=== PATIENT | male | born 1970 | race Caucasian/White ===

== ENCOUNTER 2021-02-27 10:17 | Inpatient (IN) ==
[2021-02-27] MEDS ORDERED: DEXAMETHASONE SOD INJ 4 MG/ML VIAL IV STA (11:26)
--- NOTE | 2021-02-27 11:47 | XRay Report ---
XR chest 1V portable CLINICAL HISTORY: Atypical chest pain TECHNIQUE: Single frontal radiograph of the chest was obtained. Comparison: Lungs are underinflated. There are scattered bilateral airspace opacities. FINDINGS: No lines and tubes are seen. The cardiomediastinal silhouette is normal. The lungs are clear. No evid ence of pleural effusion or pneumothorax. IMPRESSION: Scattered bilateral airspace opacities which may represent atelectasis, pneumonia, and/or aspiration. ACT 112: Negative or not required by law. Electronically signed by: Caleb Israel M.D. 02/27/2021 11:45 AM
[2021-02-27 12:04] LABS: BUN Creatinine Ratio 13.8 (10-20); Blood Urea Nitrogen 14 mg/dl (7-18); Calcium 9.2 mg/dl (8.5-10.1); Carbon Dioxide 23 mmol/L (21-32); Chloride 101 mmol/L (98-107); Est GFR (African American) 97.7 ml/min; Est GFR (Non-African American) 84.3 ml/min; Glucose 320 mg/dl (70-99); Lipase 302 U/L (73-393); Potassium 4.6 mmol/L (3.5-5.1); Sodium 133 mmol/L (136-145); Troponin I < 0.015 ng/ml (0-0.045)
--- NOTE | 2021-02-27 12:04 | Emergency Department Note ---
History of Present Illness General Chief Complaint: Shortness of Breath/Dyspnea Time Seen by Provider: 02/27/21 11:05 History of Present Illness Provider Complaint: shortness of breath Onset (ago): week(s) (1) Severity: severe Consistency/Duration: + progressively worsening Relieved By: + nothing Exacerbated By: + nothing Context: + recent illness (diagnosed w/ COVID 02/21/21) Associated symptoms: + fever, + cough and + sputum production; no chest pain, no wheezing, no lower extremity pain, no paresthesias, no palpitations, no h emoptysis, no diaphoresis, no nausea/vomiting, no syncope, no abdominal pain, no rash, no sense of impending doom, no chest congestion, no dizziness or no lightheadedness Past Med/Surg History Medical History (Updated 02/27/21 @ 15:13 by Dick Haney) Asthma Diabetes HTN (hypertension) No pertinent family history Surgical History (Updated 02/27/21 @ 12:02 by Dick Haney) No pertinent past surgical history Social History Smoking Status: Never smoker Feels Safe at Home: Declines to Answer Review of Systems A total of 10 systems reviewed and were otherwise negative Physical Exam Vital Signs: Vital Signs - 24 hr 02/27/21 10:08 02/27/21 10:34 02/27/21 10:40 Temperature 36.9 C Temperature Source Oral Pulse Rate 99 H 103 H 107 H Pulse Rate from Sp O2 Sensor 102 H 106 H Pulse Rhythm Regular Respiratory Rate 24 16 24 Respiratory Effort / Characteristics Non-Labored Respiratory Depth Normal Respiratory Patter n Regular Blood Pressure 142/96 H Blood Pressure Kyra n 111 Pulse Oximetry 95 95 95 Oxygen Delivery Me thod Nasal Cannula Sepsis Recent Feve r Within 48 Hours No Sepsis New/Unexpla ined Change in Men loni Status No Sepsis Action Take n by Nursing No Action Required 02/27/21 10:50 02/27/21 11:00 02/27/21 11:10 Temperature Temperature Source Pulse Rate 98 H 100 H 102 H Pulse Rate from Sp O2 Sensor 98 H 101 H 101 H Pulse Rhythm Respiratory Rate 21 31 H 31 H Respiratory Effort / Characteristics Respiratory Depth Respiratory Patter n Blood Pressure Blood Pressure Kyra n Pulse Oximetry 93 94 94 Oxygen Delivery Me thod Sepsis Recent Feve r Within 48 Hours Sepsis New/Unexpla ined Change in Men loni Status Sepsis Action Take n by Nursing 02/27/21 11:20 11/15/21 11:26 02/27/21 11:30 Temperature Temperature Source Pulse Rate 101 H 101 H Pulse Rate from Sp O2 Sensor 99 H 104 H Pulse Rhythm Respiratory Rate 29 H 28 H Respiratory Effort / Characteristics Respiratory Depth Respiratory Patter n Blood Pressure Blood Pressure Kyra n Pulse Oximetry 94 95 94 Oxygen Delivery Me thod Nasal Cannula Sepsis Recent Feve r Within 48 Hours Sepsis New/Unexpla ined Change in Men loni Status Sepsis Action Take n by Nursing 02/27/21 11:40 02/27/21 11:50 02/27/21 12:00 Temperature Temperature Source Pulse Rate 105 H 97 H 104 H Pulse Rate from Sp O2 Sensor 104 H 99 H 103 H Pulse Rhythm Respiratory Rate 22 24 33 H Respiratory Effort / Characteristics Respiratory Depth Respiratory Patter n Blood Pressure Blood Pressure Kyra n Pulse Oximetry 93 94 95 Oxygen Delivery Me thod Sepsis Recent Feve r Within 48 Hours Sepsis New/Unexpla ined Change in Men loni Status Sepsis Action Take n by Nursing 02/27/21 12:10 02/27/21 12:20 02/27/21 12:30 Temperature Temperature Source Pulse Rate 105 H 106 H 108 H Pulse Rate from Sp O2 Sensor 106 H 104 H 107 H Pulse Rhythm Respiratory Rate 30 H 24 25 H Respiratory Effort / Characteristics Respiratory Depth Respiratory Patter n Blood Pressure Blood Pressure Kyra n Pulse Oximetry 96 96 94 Oxygen Delivery Me thod Sepsis Recent Feve r Within 48 Hours Sepsis New/Unexpla ined Change in Men loni Status Sepsis Action Take n by Nursing 02/27/21 12:48 02/27/21 12:50 02/27/21 13:00 Temperature Temperature Source Pulse Rate 102 H 108 H 102 H Pulse Rate from Sp O2 Sensor 106 H 102 H Pulse Rhythm Respiratory Rate 29 H 27 H 33 H Respiratory Effort / Characteristics Respiratory Depth Respiratory Patter n Blood Pressure Blood Pressure Kyra n Pulse Oximetry 97 97 Oxygen Delivery Me thod Sepsis Recent Feve r Within 48 Hours Sepsis New/Unexpla ined Change in Men loni Status Sepsis Action Take n by Nursing 02/27/21 13:10 02/27/21 13:20 02/27/21 13:30 Temperature Temperature Source Pulse Rate 117 H 109 H 120 H Pulse Rate from Sp O2 Sensor 115 H 109 H Pulse Rhythm Respiratory Rate 23 33 H 28 H Respiratory Effort / Characteristics Respiratory Depth Respiratory Patter n Blood Pressure Blood Pressure Kyra n Pulse Oximetry 97 96 Oxygen Delivery Me thod Sepsis Recent Feve r Within 48 Hours Sepsis New/Unexpla ined Change in Men loni Status Sepsis Action Take n by Nursing 02/27/21 13:40 02/27/21 13:50 Temperature Temperature Source Pulse Rate 98 H 100 H Pulse Rate from Sp O2 Sensor 96 H 100 H Pulse Rhythm Respiratory Rate 34 H 32 H Respiratory Effort / Characteristics Respiratory Depth Respiratory Patter n Blood Pressure Blood Pressure Kyra n Pulse Oximetry 93 94 Oxygen Delivery Me thod Sepsis Recent Feve r Within 48 Hours Sepsis New/Unexpla ined Change in Men loni Status Sepsis Action Take n by Nursing Physical Exam: Physical Exam GENERAL: He is oriented to person, place, and time. He appears well-developed and well-nourished. He does not appear distressed. HENT: Exam performed. - Head: Normocephalic and atraumatic. - Right Ear: External ear normal. No mastoid tenderness. - Left Ear: External ear normal. No mastoid tenderness. - Mouth/Throat: The oropharynx is clear and moist. No trismus in the jaw. No dental abscesses or uvula swelling. No oropharyngeal exudate or tonsillar abscesses. EYES: Conjunctivae and EOM are normal. Pupils are equal, round, and reactive to light. Right eye exhibits no discharge. Left eye exhibits no discharge. No scleral icterus. NECK: Normal range of motion. Neck supple. No JVD present. No spinous process tenderness present. No carotid bruit present. No rigidity. No tracheal deviation and normal range of motion present. No Brudzinski's sign and no Kernig's sign noted. CV: Normal rate, regular rhythm, normal heart sounds and intact distal pulses. There is no peripheral edema. Palpable radial pulses bue. PULM/CHEST: Rhonchi bilaterally. ABD: The abdomen is soft. Bowel sounds are normal. He has no distension. No mass is present. There is no tenderness. There is no rebound, no guarding, no Gibson's sign and no tenderness at McBurney's point. Rovsig negative. MUSC/SKEL: Normal range of motion. There is no peripheral edema, tenderness or deformity. LYMPH: No cervical adenopathy. NEURO: He is alert and oriented to person, place, and time. He has normal strength. No cranial nerve deficit or sensory deficit. Coordination and gait normal. GCS eye subscore is 4. GCS verbal subscore is 5. GCS motor subscore is 6. Cerebellar tests wnl. SKIN: Skin is warm and dry. He is not diaphoretic. PSYCH: He has a normal mood and affect. Behavior is normal. Judgment and thought content normal. Course Course 1105: The patient was evaluated in room B9. A complete history and physical exam was performed Cardiac monitoring: An order was placed for continuous cardiac monitoring. The monitor shows a rate of 110 with sinus tachycardiarhythm patient was found to be hypoxic on room air 87%. Patient responded well to 4 L nasal cannula. Patient treated with Decadron 6 mg IV push. 1400: Vital signs stable on supplemental oxygen via nasal cannula. Imaging shows no PE but does show signs of Covid pneumonia. Labs are within normal limits with the exception of mild hyperglycemia. [facility] will evaluate the patient for admission. Administered Medications Discontinued Medications Dexamethasone (Dexamethasone Sod Inj 4 Mg/Ml Vial) 6 mg IV NOW STA Stop: 02/27/21 11:27 Last Admin: 02/27/21 11:42 Dose: 6 mg Documented by: [id number] Insulin Human Regular (Novolin-R Insulin Per Unit Charge) 10 units IV NOW STA Stop: 02/27/21 14:20 Last Admin: 02/27/21 14:35 Dose: 10 units Documented by: [id number] Cosigned by: [id number] Ioversol (Optiray 320 125ml) 120 ml IV ONCE ONE Stop: 02/27/21 12:46 Last Admin: 02/27/21 12:45 Dose: 120 ml Documented by: [id number] Medical Decision Making Laboratory Data Result diagrams: 02/27/21 10:37 02/27/21 10:37 Lab Results 02/27/21 02/27/21 02/27/21 Range/Units 10:37 10:37 10:37 WBC 2.47 L (4.8-10.8) K/uL RBC 5.93 (4.7-6.1) M/uL Hgb 17.4 (14.0-18.0) g/dL Hct 51.4 (42-52) % MCV 86.7 (80-100) fL MCH 29.3 (25-34) pg MCHC 33.9 (32-36) g/dL RDW Std Deviation 43.4 (36.4-46.3) fL RDW Coeff of Anish 13.6 (11.5-14.5) % Plt Count 70 L (130-400) K/uL MPV 12.2 H (7.4-10.4) fL Immature Gran % (Auto) 0.0 % Neut % (Auto) 61.1 % Lymph % (Auto) 24.3 % [place] % (Auto) 14.2 % Eos % (Auto) 0.0 % Baso % (Auto) 0.4 % Neut # (Auto) 1.51 (1.4-6.5) K/uL Lymph # (Auto) 0.60 L (1.2-3.4) K/uL [place] # (Auto) 0.35 (0.11-0.59) K/uL Eos # (Auto) 0.00 (0-0.5) K/uL Baso # (Auto) 0.01 (0-0.2) K/uL Immature Gran # (Auto) 0.00 (0.00-0.02) K/uL Platelet Estimate Decreased L (Normal) PT 11.6 (9.0-12.0) Seconds INR 1.2 H (0.9-1.1) APTT 28.4 (21.0-31.0) Seconds PTT Ratio 1.1 VBG pH (7.36-7.41) VBG pCO2 (38-50) mmHg VBG pO2 mmHg VBG HCO3 mmol/L VBG O2 Saturation % VBG Base Excess mEq/L Barometric Pressure mm/Hg Sodium 133 L (136-145) mmol/L Potassium 4.6 (3.5-5.1) mmol/L Chloride 101 (98-107) mmol/L Carbon Dioxide 23 (21-32) mmol/L Anion Gap 10.0 (3-11) BUN 14 (7-18) mg/dl Creatinine 1.03 (0.6-1.4) mg/dl Est Cr Clr Drug Dosing Not Reportable Est GFR ( Amer) 97.7 ml/min Est GFR (Non-Af Amer) 84.3 ml/min BUN/Creatinine Ratio 13.8 (10-20) Glucose 320 H* (70-99) mg/dl Calcium 9.2 (8.5-10.1) mg/dl Troponin I < 0.015 (0-0.045) ng/ml Lipase 302 (73-393) U/L Beta-Hydroxybutyric Acd 7.55 H (0.2-2.81) mg/dl COVID-19 Eval Order SARS-CoV-2 (PCR) (Negative) 02/27/21 02/27/21 02/27/21 Range/Units 10:37 10:37 12:15 WBC (4.8-10.8) K/uL RBC (4.7-6.1) M/uL Hgb (14.0-18.0) g/dL Hct (42-52) % MCV (80-100) fL MCH (25-34) pg MCHC (32-36) g/dL RDW Std Deviation (36.4-46.3) fL RDW Coeff of Anish (11.5-14.5) % Plt Count (130-400) K/uL MPV (7.4-10.4) fL Immature Gran % (Auto) % Neut % (Auto) % Lymph % (Auto) % [place] % (Auto) % Eos % (Auto) % Baso % (Auto) % Neut # (Auto) (1.4-6.5) K/uL Lymph # (Auto) (1.2-3.4) K/uL [place] # (Auto) (0.11-0.59) K/uL Eos # (Auto) (0-0.5) K/uL Baso # (Auto) (0-0.2) K/uL Immature Gran # (Auto) (0.00-0.02) K/uL Platelet Estimate (Normal) PT (9.0-12.0) Seconds INR (0.9-1.1) APTT (21.0-31.0) Seconds PTT Ratio VBG pH 7.44 H (7.36-7.41) VBG pCO2 37 L (38-50) mmHg VBG pO2 58 mmHg VBG HCO3 24 mmol/L VBG O2 Saturation 90.8 % VBG Base Excess 0.4 mEq/L Barometric Pressure 730.0 mm/Hg Sodium (136-145) mmol/L Potassium (3.5-5.1) mmol/L Chloride (98-107) mmol/L Carbon Dioxide (21-32) mmol/L Anion Gap (3-11) BUN (7-18) mg/dl Creatinine (0.6-1.4) mg/dl Est Cr Clr Drug Dosing Est GFR ( Amer) ml/min Est GFR (Non-Af Amer) ml/min BUN/Creatinine Ratio (10-20) Glucose (70-99) mg/dl Calcium (8.5-10.1) mg/dl Troponin I (0-0.045) ng/ml Lipase (73-393) U/L Beta-Hydroxybutyric Acd (0.2-2.81) mg/dl COVID-19 Eval Order Covid19 at [facility] SARS-CoV-2 (PCR) POSITIVE A* (Negative) Imaging Data Radiologist's Impression: Chest X-Ray 02/27/21 11:26 XR chest 1V portable CLINICAL HISTORY: Atypical chest pain TECHNIQUE: Single frontal radiograph of the chest was obtained. Comparison: Lungs are underinflated. There are scattered bilateral airspace opacities. FINDINGS: No lines and tubes are seen. The cardiomediastinal silhouette is normal. The lungs are clear. No evidence of pleural effusion or pneumothorax. IMPRESSION: Scattered bilateral airspace opacities which may represent atelectasis, pneumonia, and/or aspiration. ACT 112: Negative or not required by law. Electronically signed by: Caleb Israel M.D. 02/27/2021 11:45 AM Chest CTA 02/27/21 11:27 CT angio chest PE protocol CLINICAL HISTORY: Covid pneumonia. Increased dyspnea and cough TECHNIQUE: Multidetector row helical CT of the chest was performed. Coronal and sagittal reformations were obtained. Automated dose lowering techniques and/or adjustment according to patient size were utilized for this exam. Comparison: None available at the time of this dictation. FINDINGS: Lungs and pleura: Bilateral reticular and groundglass opacities are seen. Heart and pericardium: Heart size is normal. No pericardial effusion. Vessels: No evidence of pulmonary embolism. Mediastinum and fidelina: Unremarkable. Chest wall and lower neck: Unremarkable. Abdomen: Hepatic steatosis is noted. Bones: Unremarkable. IMPRESSION: 1. No evidence of pulmonary embolism. 2. Diffuse reticular and groundglass opacities compatible with history of Covid pneumonia. ACT 112: Negative or not required by law. Electronically signed by: Caleb Israel M.D. 02/27/2021 12:57 PM ECG Data Interpretation: Sinus tachycardia with a rate of 105. NE QRS and QTc intervals within normal limits. No ST elevation or ST depression. [facility] Narrative 1105: The patient was evaluated in room B9. A complete history and physical exam was performed Cardiac monitoring: An order was placed for continuous cardiac monitoring. The monitor shows a rate of 110 with sinus tachycardiarhythm patient was found to be hypoxic on room air 87%. Patient responded well to 4 L nasal cannula. Patient treated with Decadron 6 mg IV push. 1400: Vital signs stable on supplemental oxygen via nasal cannula. Imaging shows no PE but does show signs of Covid pneumonia. Labs are within normal limits with the exception of mild hyperglycemia. [facility] will evaluate the patient for admission. Impression & Plan Hypoxia, Pneumonia due to COVID-19 virus Critical Care Time Critical Care Time: Yes Total Critical Care Time: 50 I have personally spent greater than 50 minutes of critical care time in the direct management of this patient. This includes bedside care, interpretation of diagnostic studies, and testing, discussion with consultants, patient, and family members, and other required patient management activities. This 50 minutes is in excess of all separately billable procedures. Discharge Plan Visit Data Chief Complaint: Shortness of Breath/Dyspnea ED Provider: Dick Haney Discharge Problem: Hypoxia, Pneumonia due to COVID-19 virus Patient Disposition: Admitted As Inpatient Discharge Instructions Interventions: ED Discharge Assessment Last Done: 02/27/21 14:49 Forms Stand Alone Forms: [facility] Referrals Referrals: PCP,NO [Physician] -
[2021-02-27 12:05] LABS: INR 1.2 (0.9-1.1); Partial Thromboplastin Ratio 1.1; Partial Thromboplastin Time 28.4 Seconds (21.0-31.0); Prothrombin Time 11.6 Seconds (9.0-12.0)
[2021-02-27 12:17] LABS: Beta-Hydroxybutyrate 7.55 mg/dl (0.2-2.81)
[2021-02-27 12:32] LABS: Basophils # (auto) 0.01 K/uL (0-0.2); Basophils % (auto) 0.4 %; Hematocrit (blood only) 51.4 % (42-52); Hemoglobin 17.4 g/dL (14.0-18.0); Lymphocytes % (auto) 24.3 %; Mean Corpuscular Hemoglobin 29.3 pg (25-34); Mean Corpuscular Hgb Conc 33.9 g/dL (32-36); Mean Corpuscular Volume 86.7 fL (80-100); Mean Platelet Volume 12.2 fL (7.4-10.4); Monocytes # (auto) 0.35 K/uL (0.11-0.59); Monocytes % (auto) 14.2 %; Neutrophils # (auto) 1.51 K/uL (1.4-6.5); Neutrophils % (auto) 61.1 %; Platelet Count 70 K/uL (130-400); Platelet Estimate Decreased (Normal); RDW Coefficient of Variation 13.6 % (11.5-14.5); RDW Standard Deviation 43.4 fL (36.4-46.3); Red Blood Count 5.93 M/uL (4.7-6.1); White Blood Count 2.47 K/uL (4.8-10.8)
[2021-02-27] MEDS ORDERED: OPTIRAY 320 125ml IV ONE (12:45)
[2021-02-27 12:53] LABS: Base Excess VBG 0.4 mEq/L; Oxygen Saturation VBG 90.8 %; pH VBG 7.44 (7.36-7.41)
--- NOTE | 2021-02-27 12:58 | CT Scan Report ---
CT angio chest PE protocol CLINICAL HISTORY: Covid pneumonia. Increased dyspnea and cough TECHNIQUE: Multidetector row helical CT of the chest was performed. Coronal and sagittal reformations were obtained. Automated dose lowering techniques and/or adjustment according to patient size were u tilized for this exam. Comparison: None available at the time of this dictation. FINDINGS: Lungs and pleura: Bilateral reticular and groundglass opacities are seen. Heart and pericardium: Heart size is normal. No pericardial effusion. Vessels: No evidence of pulmonary embolism. Mediastinum and fidelina: Unremarkable. Chest wall and lower neck: Unremarkable. Abdomen: Hepatic steatosis is noted. Bones: Unremarkable. IMPRESSION: 1. No evidence of pulmonary embolism. 2. Diffuse reticular and groundglass opacities compatible with history of Covid pneumonia. ACT 112: Negative or not required by law. Electronically signed by: Caleb Israel M.D. 02/27/2021 12:57 PM
[2021-02-27] MEDS ORDERED: NovoLIN-R INSULIN PER UNIT CHARGE IV STA (14:19)
[2021-02-27] MEDS ORDERED: SODIUM CHLORIDE 0.9% 1000ML 1,000 ML IV SCH (14:30)
--- NOTE | 2021-02-27 14:43 | History & Physical Report ---
Date of Service February 27, 2021 Assessment & Plan (1) Pneumonia due to COVID-19 virus: Plan: Out of the window for treatment with remdesivir. Cont with daily decadron, which was started in the ER. Cough suppressant and Lasix PRN. Oxygen supplementation as needed. (2) Hypoxia: Plan: 2/2 covid pneumonia. Escalate oxygen supplementation as needed. (3) Asthma: Plan: no evidence of wheezing at this time. Chronic, appears stable. Receiving steroids for covid. If wheezing begins, ok to consider bronchodilator therapy. (4) HTN (hypertension): Plan: No known home medications. Diet control and add antihypertensive therapy as needed. (5) DMII (diabetes mellitus, type 2): Plan: A1C pending. Will proceed with basal bolus insulin while hospitalized and on steroids. (6) DVT prophylaxis: Plan: Lovenox Full Dispo-PCU. Mallika Brown DO [facility] Hospitalist History of Present Illness Chief Complaint: I have covid Primary Care Provider: LEE ANN [facility] 50 yo inmate who is vaccinated presented with SOB and hypoxia. He is known to be positive for covid-19 since 02/21 and symptomatic for possibly one week prior to that. He doesn't really know how long he has been sick. Denies fevers, chills, chest pain. Reports diarrhea twice daily and SOB now requiring oxygen. Some coughing present that is keeping him up at night. Denies any appetite to eat at this time. Otherwise has no symptoms. Known diabetic. He comes without paperwork and is unable to tell me if he is on medications. Allergies Allergy/AdvReac Type Severity Reaction Status Date / Time No Known Allergies Allergy Verified 02/27/21 16:40 Home Medications Medication Instructions Recorded Confirmed Type No Known Home Medications 02/28/21 02/28/21 History Past Med/Surg History Medical History Asthma Diabetes HTN (hypertension) Surgical History No pertinent past surgical history Family History Father Diabetes Other Patient's father is Social History Smoking Status: Current every day smoker Tobacco Type: E-cigarettes / Vaping Hx Alcohol Use: No Hx Substance Use: No Preferred Language: Jamaican Communication Tools: IPad Dot Etcher Apprentice Required: Yes and Video Beliefs That Will Affect Care: Yarsanism Current Living Situation: Other Current Living Situation Comment: incarcerated Feels Safe at Home: Yes Assistive Devices: None Review of Systems Review of Systems: All systems were reviewed and negative except as indicated on HPI above. Physical Exam Physical Exam: CONSTITUTIONAL: WNWD, vitals as above, generally well- appearing, NAD EYES: pupils are round and equal bilaterally, normal conjunctivae, no scleral icterus ENT: external ear and nose normal, oropharynx clear, MMM NECK: trachea midline RESPIRATORY: clear to auscultation bilaterally, no crackles, rales or wheezes, diminished breath sounds at the bases, normal respiratory effort CARDIOVASCULAR: regular rate and rhythm, S1 and 2 heard without murmurs, gallops or rubs, no JVD, no peripheral edema CHEST: inspection of chest was normal GASTROINTESTINAL: soft, nontender, ND, no guarding MUSCULOSKELETAL: strength 5/5 throughout, head is normocephalic and atraumatic SKIN: warm and dry,extensive tattoos NEUROLOGIC: patellar DTRs 2+ bilat. PERRL, EOMI, no facial palsy, no dysarthria. Touch, pain and proprioception normal. CN 2-12 grossly intact, no sensory deficit, normal cognition, normal speech, no tremor PSYCHIATRIC: alert cooperative and oriented to person, place and time. Results & Data Results & Data ([facility]) Vital Signs (Past 12 Hours) Vital Signs Temp Pulse Resp BP Pulse Ox 02/27/21 13:50 100 H 32 H 94 02/27/21 13:40 98 H 34 H 93 02/27/21 13:30 120 H 28 H 02/27/21 13:20 109 H 33 H 96 02/27/21 13:10 117 H 23 97 02/27/21 13:00 102 H 33 H 97 02/27/21 12:50 108 H 27 H 97 02/27/21 12:48 102 H 29 H 02/27/21 12:30 108 H 25 H 94 02/27/21 12:20 106 H 24 96 02/27/21 12:10 105 H 30 H 96 02/27/21 12:00 104 H 33 H 95 02/27/21 11:50 97 H 24 94 02/27/21 11:40 105 H 22 93 02/27/21 11:30 101 H 28 H 94 02/27/21 11:26 95 02/27/21 11:20 101 H 29 H 94 02/27/21 11:10 102 H 31 H 94 02/27/21 11:00 100 H 31 H 94 02/27/21 10:50 98 H 21 93 02/27/21 10:40 107 H 24 95 02/27/21 10:34 103 H 16 95 02/27/21 10:08 36.9 C 99 H 24 142/96 H 95 Laboratory Results Short CBC 02/27/21 Range/Units 10:37 WBC 2.47 L (4.8-10.8) K/uL Hgb 17.4 (14.0-18.0) g/dL Hct 51.4 (42-52) % Plt Count 70 L (130-400) K/uL BMP 02/27/21 10:37 Sodium 133 L Potassium 4.6 Chloride 101 Carbon Dioxide 23 BUN 14 Creatinine 1.03 Glucose 320 H* Calcium 9.2 Cardiac Enzymes 02/27/21 Range/Units 10:37 Troponin I < 0.015 (0-0.045) ng/ml Diagnostic Findings Chest X-Ray 02/27/21 11:26 XR chest 1V portable CLINICAL HISTORY: Atypical chest pain TECHNIQUE: Single frontal radiograph of the chest was obtained. Comparison: Lungs are underinflated. There are scattered bilateral airspace opacities. FINDINGS: No lines and tubes are seen. The cardiomediastinal silhouette is normal. The lungs are clear. No evidence of pleural effusion or pneumothorax. IMPRESSION: Scattered bilateral airspace opacities which may represent atelectasis, pneumonia, and/or aspiration. ACT 112: Negative or not required by law. Electronically signed by: Caleb Israel M.D. 02/27/2021 11:45 AM Chest CTA 02/27/21 11:27 CT angio chest PE protocol CLINICAL HISTORY: Covid pneumonia. Increased dyspnea and cough TECHNIQUE: Multidetector row helical CT of the chest was performed. Coronal and sagittal reformations were obtained. Automated dose lowering techniques and/or adjustment according to patient size were utilized for this exam. Comparison: None available at the time of this dictation. FINDINGS: Lungs and pleura: Bilateral reticular and groundglass opacities are seen. Heart and pericardium: Heart size is normal. No pericardial effusion. Vessels: No evidence of pulmonary embolism. Mediastinum and fidelina: Unremarkable. Chest wall and lower neck: Unremarkable. Abdomen: Hepatic steatosis is noted. Bones: Unremarkable. IMPRESSION: 1. No evidence of pulmonary embolism. 2. Diffuse reticular and groundglass opacities compatible with history of Covid pneumonia. ACT 112: Negative or not required by law. Electronically signed by: Caleb Israel M.D. 02/27/2021 12:57 PM Code Status & VTE Plan VTE Prophylaxis Plan VTE Prophylaxis will be ordered: Yes
[2021-02-27] MEDS ORDERED: GLUCOSE 40% GEL 15 GM TUBE PO PRN (15:53)
[2021-02-27] MEDS ORDERED: GLUCAGON FOR INJ 1 MG VIAL SQ PRN (15:53)
[2021-02-27] MEDS ORDERED: ONDANSETRON INJ 2 MG/ML 2 ML VIAL IV PRN (15:53)
[2021-02-27] MEDS ORDERED: CARBOHYDRATES FOR HYPOGLYCEMIA PO PRN (15:53)
[2021-02-27] MEDS ORDERED: GLUCOSE 10 TABS/TUBE PO PRN (15:53)
[2021-02-27] MEDS ORDERED: DEXTROSE 50% 50 ML SYRINGE IV PRN (15:53)
[2021-02-27] MEDS ORDERED: PATIENT'S ALLERGY INFO NEEDS ENTERED SCH (16:15)
[2021-02-27] MEDS ORDERED: PATIENT'S HEIGHT AND/OR WEIGHT NEEDED SCH (16:15)
[2021-02-27] MEDS ORDERED: guaiFENesin/CODEINE 100MG/10MG 5ML UDC PO STA (16:26)
--- NOTE | 2021-02-27 16:35 | Electrocardiogram Report ---
Test Reason : Blood Pressure : / mmHG Vent. Rate : 105 BPM Atrial Rate : 105 BPM P-R Int : 146 ms QRS Dur : 088 ms QT Int : 352 ms P-R-T Axes : 049 -13 027 degrees QTc Int : 465 ms Sinus tachycardia Otherwise normal ECG No previous ECGs available Confirmed by Omid Dwyer ([id number]) on 02/27/2021 4:35:29 PM Referred By: SCI Confirmed By:Omid Dwyer
[2021-02-27] MEDS: INSULIN GLARGINE SOLOSTAR 100 UNITS/ML 3 ML PEN SC SCH (17:28)
[2021-02-27] MEDS: INSULIN ASPART 100 UNITS/ML 3 ML PEN SC SCH ×2 (17:51→22:47)
[2021-02-27] MEDS: ENOXAPARIN INJ 40 MG/0.4 ML SYR SQ SCH (17:52)
[2021-02-27] MEDS ORDERED: INSULIN GLARGINE SOLOSTAR 100 UNITS/ML 3 ML PEN SC SCH (21:00)
[2021-02-27] MEDS ORDERED: INSULIN HUMAN REGULAR PER UNIT 4 UNITS in SYRINGE 3.96 ML IV ONE (23:30)
[2021-02-28] MEDS: INSULIN GLARGINE SOLOSTAR 100 UNITS/ML 3 ML PEN SC SCH ×2 (06:17→18:15)
[2021-02-28] MEDS: ENOXAPARIN INJ 40 MG/0.4 ML SYR SQ SCH ×2 (06:19→18:15)
[2021-02-28] MEDS ORDERED: PHARMACY GLYCEMIC MGMT CONSULT PRN (08:17)
[2021-02-28 08:37] LABS: Estimated Average Glucose 272 mg/dl; Hemoglobin A1C 11.1 % (4.5-5.6)
[2021-02-28] MEDS: INSULIN ASPART 100 UNITS/ML 3 ML PEN SC SCH ×4 (08:48→21:00)
[2021-02-28] MEDS: dexAMETHasone 6 MG in SYRINGE 0 ML IV SCH (08:49)
[2021-02-28 09:06] LABS: Basophils # (auto) 0.02 K/uL (0-0.2); Basophils % (auto) 0.7 %; Giant Platelets 1+; Hematocrit (blood only) 52.1 % (42-52); Hemoglobin 17.6 g/dL (14.0-18.0); Immature Granulocytes # (auto) 0.01 K/uL (0.00-0.02); Immature Granulocytes % (auto) 0.3 %; Lymphocytes # (auto) 0.74 K/uL (1.2-3.4); Lymphocytes % (auto) 24.1 %; Mean Corpuscular Hemoglobin 29.5 pg (25-34); Mean Corpuscular Hgb Conc 33.8 g/dL (32-36); Mean Corpuscular Volume 87.4 fL (80-100); Monocytes % (auto) 16.3 %; Neutrophils % (auto) 58.6 %; Platelet Count 87 K/uL (130-400); Platelet Estimate Decreased (Normal); RDW Coefficient of Variation 13.8 % (11.5-14.5); RDW Standard Deviation 44.8 fL (36.4-46.3); Red Blood Count 5.96 M/uL (4.7-6.1); White Blood Count 3.07 K/uL (4.8-10.8)
[2021-02-28 09:25] LABS: Albumin Globulin Ratio 0.6 (0.9-2); Albumin Level 2.9 gm/dl (3.4-5.0); BUN Creatinine Ratio 21.5 (10-20); Bilirubin,Total 0.9 mg/dl (0.2-1); C Reactive Protein 2.95 mg/dl (0-0.29); Creatinine Clr Calc Pharmacy 93.7 ml/min; Est GFR (African American) 84.6 ml/min; Globulin 5.1 gm/dl (2.5-4.0); Magnesium 2.1 mg/dl (1.8-2.4); Phosphorus 3.6 mg/dl (2.5-4.9)
[2021-02-28 09:47] LABS: Beta-Hydroxybutyrate 9.04 mg/dl (0.2-2.81)
[2021-02-28] MEDS ORDERED: STAT IV Infusion **Titration per Protocol STA ×2 (10:18→15:38)
[2021-02-28] MEDS ORDERED: INSULIN PROTOCOL GOAL RANGE ONE (10:18)
[2021-02-28] MEDS ORDERED: NovoLIN-R BOLUS FROM BAG IV ONE (10:30)
[2021-02-28] MEDS: INSULIN REGULAR 250 UNITS in SODIUM CHLORIDE 0.9% 247.5 ML IV SCH (11:05)
--- NOTE | 2021-02-28 11:33 | Pharmacy Report ---
Pharmacy Glycemic Short Note 2 - Date of Service February 28, 2021 - Glycemic Short BSG Results (Last 24 hours): 02/27/21 02/27/21 02/27/21 10:37 16:44 20:49 Glucose 320 H* POC Glucose 251 H 329 H* 02/27/21 02/28/21 02/28/21 20:52 00:11 06:14 Glucose POC Glucose 323 H* 323 H* 306 H* 02/28/21 02/28/21 02/28/21 07:11 07:39 09:50 Glucose 352 H* POC Glucose 326 H* 353 H* OUTPATIENT ANTIDIABETIC REGIMEN: * uncertain * A1c = 11.1% 02/28/21 ASSESSMENT: * Type 2 diabetic admitted to Telemetry for COVID19 pneumonia with hypoxia * Patient was severely hyperglycemic (without AG acidosis) on admission. Severe hyperglycemia persists despite use of weight-based SQ insulin doses at "severe" stress level. * Will initiate IV insulin drip with current basal insulin order to help quickly and safely bring BSGs to goal. Continuing current basal dose will allow for smoother transition off insulin drip once true needs are better known with current stressors. * Novolog SQ will be given with meals to prevent unnecessary upwards titrations in IV insulin infusion rates PLAN FOR INPATIENT GLYCEMIC CONTROL: * Basal insulin * Lantus 25 units SQ BID - continue with IV insulin drip for now * Bolus insulin * NovoLog SQ with meals * Nutritional / Prandial insulin per carb ratio of 1 unit per 4 grams CHO consumed PLAN FOR DISCHARGE: * to be determined
--- NOTE | 2021-02-28 15:38 | Hospitalist Progress Note ---
Date of Service February 28, 2021 Assessment & Plan (1) Pneumonia due to COVID-19 virus: Plan: Out of the window for treatment with remdesivir. Cont with daily decadron. Cough suppressant and Lasix PRN. Oxygen supplementation as needed. Prone as often as possible. (2) Hypoxia: Plan: 2/2 covid pneumonia. Escalate oxygen supplementation as needed. (3) DMII (diabetes mellitus, type 2): Plan: A1C is 11 indicating poor control. A step up in diabetic therapy would be recommended at discharge. Will need to discuss with group home medical staff. For now, cont insulin drip overnight, monitor and correct lytes as needed. Working to correct ketosis, mild DKA. (4) DKA (diabetic ketoacidosis): Plan: Management with insulin drip as above. Made him NPO. Cont to monitor lytes and glucose closely. Replace as needed. IVF while NPO and on insulin drip. Will likely stop in am and convert to subQ insulin with reinstatement of diet. (5) HTN (hypertension): Plan: Antihypertensive therapy added per home regimen. Was not present on admission as records were not sent over and patient was not aware of medications. (6) Asthma: Plan: no evidence of wheezing at this time. Chronic, appears stable. Receiving steroids for covid. If wheezing begins, ok to consider bronchodilator therapy. (7) Depression: Plan: Cont Abilify and mirtazapine per home regimen. (8) DVT prophylaxis: Plan: Lovenox Full Dispo-PCU. Mallika Brown DO [facility] Admission and Anticipated Discharge Date Admission Date: February 27, 2021 Subjective 50 yo incarcerated diabetic man presents with hypoxia and respiratory symptoms 2/2 covid pneumonia He is still requiring oxygen today but reports feeling better overall. +cough hyperglycemia requiring insulin drip, ketones present tolerating PO but making NPO to help with glucose metabolism overnight contacted group home for updated med list, new orders placed Pt otherwise denies fevers, chills, abdominal pain, GI symptoms or other issues. Review of Systems Review of Systems: All systems were reviewed and negative except as indicated above Physical Exam Physical Exam: CONSTITUTIONAL: WNWD, vitals as above, generally well- appearing, NAD EYES: pupils are round and equal bilaterally, normal conjunctivae, no scleral icterus ENT: external ear and nose normal, oropharynx clear, MMM NECK: trachea midline RESPIRATORY: clear to auscultation bilaterally, no crackles, rales or wheezes, diminished breath sounds at the bases, normal respiratory effort CARDIOVASCULAR: regular rate and rhythm, S1 and 2 heard without murmurs, gallops or rubs, no JVD, no peripheral edema CHEST: inspection of chest was normal GASTROINTESTINAL: soft, nontender, ND, no guarding MUSCULOSKELETAL: strength 5/5 throughout, head is normocephalic and atraumatic SKIN: warm and dry,extensive tattoos NEUROLOGIC: CN 2-12 grossly intact, normal cognition, normal speech, no tremor PSYCHIATRIC: alert cooperative and oriented to person, place and time. Results & Data Results & Data ([facility]) Vital Signs (Past 12 Hours) Vital Signs Pulse Resp BP Pulse Ox 02/28/21 07:40 99 H 20 133/94 91 Laboratory Results Short CBC 02/28/21 Range/Units 07:11 WBC 3.07 L (4.8-10.8) K/uL Hgb 17.6 (14.0-18.0) g/dL Hct 52.1 H (42-52) % Plt Count 87 L (130-400) K/uL BMP 02/28/21 07:11 Sodium 133 L Potassium 5.0 Chloride 100 Carbon Dioxide 24 BUN 25 H D Creatinine 1.16 Glucose 352 H* Calcium 9.0 Liver Function 02/28/21 Range/Units 07:11 Total Bilirubin 0.9 (0.2-1) mg/dl AST 94 H (15-37) U/L ALT 76 (12-78) U/L Alkaline Phosphatase 83 (45-117) U/L Albumin 2.9 L (3.4-5.0) gm/dl Medications Administered Current Inpatient Medications Acetaminophen (Acetaminophen 325 Mg Tab) 650 mg PO Q4H PRN PRN Reason: Pain or Fever Stop: 03/29/21 15:52 Dextrose (Dextrose 50% 50 Ml Syringe) 25 - 50 ml IV UD PRN; Protocol PRN Reason: Hypoglycemia Protocol Stop: 03/29/21 15:52 Enoxaparin Sodium (Enoxaparin Inj 40 Mg/0.4 Ml Syr) 40 mg SQ Q12H PITO Stop: 03/29/21 17:59 Last Admin: 02/28/21 06:19 Dose: 40 mg Documented by: Glucagon (Glucagon For Inj 1 Mg Vial) 1 mg SQ UD PRN; Protocol PRN Reason: Hypoglycemia Protocol Stop: 03/29/21 15:52 Glucose (Glucose 10 Tabs/Tube) 4 - 8 tabs PO UD PRN; Protocol PRN Reason: Hypoglycemia Protocol Stop: 03/29/21 15:52 Glucose (Glucose 40% Gel 15 Gm Tube) 15 - 30 gm PO UD PRN; Protocol PRN Reason: Hypoglycemia Protocol Stop: 03/29/21 15:52 Guaifenesin/Codeine Phosphate (Guaifenesin/Codeine 200mg/20mg 10ml Udc) 10 ml PO Q6H PRN PRN Reason: Cough Stop: 03/29/21 16:25 Dexamethasone 6 mg/ Syringe 1.5 mls @ 1 mls/min IV DAILY PITO Stop: 03/30/21 08:59 Last Admin: 02/28/21 08:49 Dose: 1 mls/min Documented by: Insulin Human Regular 250 (units/ Sodium Chloride) 250 mls @ 10.4 mls/hr IV .Q24H PITO; Protocol Stop: 03/30/21 10:29 Last Titration: 02/28/21 15:05 Dose: 10.4 units/hr, 10.4 mls/hr Documented by: Insulin Aspart (Insulin Aspart 100 Units/Ml 3 Ml Pen) 0 units SC ACHS PITO Stop: 03/30/21 11:29 Last Admin: 02/28/21 13:16 Dose: 10 units Documented by: Insulin Glargine (Insulin Glargine Solostar 100 Units/Ml 3 Ml Pen) 25 units SC Q12H PITO Stop: 03/29/21 17:59 Last Admin: 02/28/21 06:17 Dose: 25 units Documented by: Miscellaneous (Carbohydrates For Hypoglycemia ) 15 - 30 gm PO UD PRN PRN Reason: Hypoglycemia Protocol Stop: 03/29/21 15:52 Miscellaneous Information (Pharmacy Glycemic Mgmt Consult) 1 ea N/A UD PRN PRN Reason: Consult Stop: 03/30/21 08:16 Ondansetron HCl (Ondansetron Inj 2 Mg/Ml 2 Ml Vial) 4 mg IV Q6H PRN PRN Reason: Nausea Stop: 03/29/21 15:52 Polyethylene Glycol (Polyethylene (Miralax) 17 Gm Pack) 17 gm PO DAILY PRN PRN Reason: Constipation Stop: 03/29/21 15:52
[2021-02-28] MEDS ORDERED: SODIUM CHLORIDE 0.9% 1000ML 1,000 ML IV SCH (15:50)
[2021-02-28] MEDS ORDERED: INSULIN ASPART 100 UNITS/ML 3 ML PEN SC SCH (16:30)
[2021-02-28] MEDS ORDERED: SODIUM CHLOR 0.45% + 20MEQ KCL 20 MEQ/1,000 ML BAG IV SCH (16:50)
[2021-02-28 16:57] LABS: BUN Creatinine Ratio 23.6 (10-20); Creatinine Clr Calc Pharmacy 87.6 ml/min; Est GFR (African American) 78.1 ml/min; Est GFR (Non-African American) 67.4 ml/min
[2021-02-28] MEDS: D5NSS + 20MEQ KCL 20 MEQ/1,000 ML BAG IV SCH (17:58)
[2021-02-28 18:54] LABS: Phosphorus 2.2 mg/dl (2.5-4.9)
[2021-02-28 19:25] LABS: Potassium 4.2 mmol/L (3.5-5.1)
[2021-02-28 20:52] LABS: BUN Creatinine Ratio 28.9 (10-20); Calcium 8.8 mg/dl (8.5-10.1); Creatinine Clr Calc Pharmacy 116.8 ml/min; Est GFR (African American) 110.6 ml/min; Est GFR (Non-African American) 95.4 ml/min; Phosphorus 2.4 mg/dl (2.5-4.9); Potassium 4.4 mmol/L (3.5-5.1)
[2021-02-28] MEDS: ARIPiprazole 15 MG TAB PO SCH (23:53)
[2021-02-28] MEDS: MIRTAZAPINE SOLTAB 15 MG PO SCH (23:53)
[2021-03-01 00:49] LABS: BUN Creatinine Ratio 30.4 (10-20); Calcium 8.6 mg/dl (8.5-10.1); Creatinine Clr Calc Pharmacy 127.8 ml/min; Est GFR (African American) 117.8 ml/min; Est GFR (Non-African American) 101.6 ml/min; Phosphorus 2.8 mg/dl (2.5-4.9)
[2021-03-01 00:50] LABS: Potassium 4.8 mmol/L (3.5-5.1)
[2021-03-01] MEDS: D5NSS + 20MEQ KCL 20 MEQ/1,000 ML BAG IV SCH ×2 (02:34→10:23)
[2021-03-01 04:44] LABS: BUN Creatinine Ratio 28.9 (10-20); Beta-Hydroxybutyrate 1.05 mg/dl (0.2-2.81); Est GFR (African American) 117.2 ml/min; Est GFR (Non-African American) 101.1 ml/min; Magnesium 2.1 mg/dl (1.8-2.4); Potassium 4.7 mmol/L (3.5-5.1)
[2021-03-01] MEDS: ENOXAPARIN INJ 40 MG/0.4 ML SYR SQ SCH ×2 (06:38→18:02)
[2021-03-01] MEDS: INSULIN GLARGINE SOLOSTAR 100 UNITS/ML 3 ML PEN SC SCH ×2 (06:42→20:12)
[2021-03-01] MEDS: INSULIN ASPART 100 UNITS/ML 3 ML PEN SC SCH ×4 (07:45→20:12)
[2021-03-01 08:14] LABS: BUN Creatinine Ratio 28.8 (10-20); Calcium 8.8 mg/dl (8.5-10.1); Creatinine Clr Calc Pharmacy 134.2 ml/min; Est GFR (African American) 119.5 ml/min; Est GFR (Non-African American) 103.1 ml/min
[2021-03-01 08:15] LABS: Phosphorus 3.4 mg/dl (2.5-4.9)
[2021-03-01] MEDS: dexAMETHasone 6 MG in SYRINGE 0 ML IV SCH (08:34)
[2021-03-01] MEDS: lisinopril 40 MG TAB PO SCH (10:35)
[2021-03-01 11:59] LABS: BUN Creatinine Ratio 27.4 (10-20); Calcium 8.9 mg/dl (8.5-10.1); Creatinine Clr Calc Pharmacy 125.1 ml/min; Est GFR (African American) 116.1 ml/min; Est GFR (Non-African American) 100.2 ml/min; Magnesium 2.1 mg/dl (1.8-2.4); Phosphorus 2.9 mg/dl (2.5-4.9); Potassium 4.4 mmol/L (3.5-5.1)
[2021-03-01] MEDS ORDERED: INSULIN HUMAN NPH SC ONE (13:00)
--- NOTE | 2021-03-01 13:44 | Pharmacy Report ---
Pharmacy Glycemic Short Note 2 - Date of Service March 01, 2021 - Glycemic Short BSG Results (Last 24 hours): 02/28/21 02/28/21 02/28/21 14:15 14:16 15:01 Glucose POC Glucose 343 H* 313 H* 314 H* 02/28/21 02/28/21 02/28/21 16:02 16:12 17:05 Glucose 303 H* POC Glucose 280 H 224 H 02/28/21 02/28/21 02/28/21 18:04 19:03 19:23 Glucose POC Glucose 195 H 140 H 136 H 02/28/21 02/28/21 02/28/21 19:43 20:12 20:42 Glucose 188 H POC Glucose 158 H 168 H 02/28/21 02/28/21 02/28/21 21:38 22:37 23:47 Glucose 188 H POC Glucose 177 H 175 H 03/01/21 03/01/21 03/01/21 00:49 02:32 03:49 Glucose POC Glucose 155 H 137 H 131 H 03/01/21 03/01/21 03/01/21 04:07 04:34 05:32 Glucose 147 H POC Glucose 131 H 129 H 03/01/21 03/01/21 03/01/21 06:36 07:37 07:39 Glucose 187 H POC Glucose 144 H 162 H 03/01/21 03/01/21 03/01/21 08:31 10:17 11:21 Glucose 242 H POC Glucose 173 H 166 H 03/01/21 11:59 Glucose POC Glucose 290 H OUTPATIENT ANTIDIABETIC REGIMEN: * uncertain * A1c = 11.1% 02/28/21 ASSESSMENT: 03/01 * Insulin infusion continues to infuse, was down to 3 units/hr but increased at lunch- patient restarted diet, dextrose of was discontinued * Will give 1x dose of NPH now to help with steroid coverage and move to AM dosing with dex tomorrow. Will set scale for PM lantus to help transition off of insulin infusion 02/28 * Type 2 diabetic admitted to Telemetry for COVID19 pneumonia with hypoxia * Patient was severely hyperglycemic (without AG acidosis) on admission. Severe hyperglycemia persists despite use of weight-based SQ insulin doses at "severe" stress level. * Will initiate IV insulin drip with current basal insulin order to help quickly and safely bring BSGs to goal. Continuing current basal dose will allow for smoother transition off insulin drip once true needs are better known with current stressors. * Novolog SQ will be given with meals to prevent unnecessary upwards titrations in IV insulin infusion rates PLAN FOR INPATIENT GLYCEMIC CONTROL: * Basal insulin * Lantus 25 units SQ this morning, scale for PM 30/35 units based on drip rate - continue with IV insulin drip for now, plan to transition * NPH 20 units x1 * Bolus insulin * NovoLog SQ with meals * Nutritional / Prandial insulin per carb ratio of 1 unit per 4 grams CHO consumed PLAN FOR DISCHARGE: * to be determined
[2021-03-01] MEDS ORDERED: FUROSEMIDE INJ 20 MG/2 ML VIAL IV ONE (17:23)
[2021-03-01] MEDS ORDERED: POTASSIUM CHLORIDE CRTAB 20 MEQ TABCR PO STA (17:26)
--- NOTE | 2021-03-01 17:38 | Hospitalist Progress Note ---
Date of Service March 01, 2021 Assessment & Plan (1) Acute respiratory failure due to COVID-19: Plan: per plan beow. (2) Pneumonia due to COVID-19 virus: Plan: Out of the window for treatment with remdesivir. Cont with daily decadron. Cough suppressant and Lasix PRN. Will give Lasix 20mg with potassium now. Notably he received IVF with dextrose and potassium overnight while on the insulin drip and NPO. This drip was stopped earlier in the day. Oxygen supplementation as needed. Prone as often as possible. He was proned this evening with me in the room. (3) DMII (diabetes mellitus, type 2): Plan: A1C is 11 indicating poor control. A step up in diabetic therapy would be recommended at discharge. Will need to discuss with group home medical staff. For now, cont insulin drip overnight, monitor and correct lytes as needed. Ketosis has been corrected, lactate trended down, will check in am. Cont management per glycemic pharmacist. (4) DKA (diabetic ketoacidosis): Plan: Management with insulin drip and SQ insulin (basal/bolus). He is eating again. Cont to monitor lytes and glucose closely. Replace as needed. (5) HTN (hypertension): Plan: Around his goal. Lasix now as above. cont current therapy. (6) Asthma: Plan: no evidence of wheezing at this time. Chronic, appears stable. Receiving [place] roids for covid. If wheezing begins, ok to consider bronchodilator therapy. (7) Depression: Plan: Cont Abilify and mirtazapine per home regimen. (8) DVT prophylaxis: Plan: Lovenox Full Dispo-PCU. DO [facility] Hospitalist Admission and Anticipated Discharge Date Admission Date: February 27, 2021 Subjective 50 yo incarcerated diabetic man presents with hypoxia and respiratory symptoms 2/2 covid pneumonia He is still requiring oxygen today and is reporting feeling more short of breath +cough persists but is "ok" no fevers, chills, no abdominal pain or other pain Hyperglycemic and coming down the insulin drip and transitioning to subcutaneous insulin. Used [place] [employer] supervisor to gather information and help him explain why he is proned and what the goal is with the proned position. He is proned and requiring 6LPM supplementation via nasal canula. Review of Systems Review of Systems: All systems were reviewed and negative except as above. Physical Exam Physical Exam: CONSTITUTIONAL: WNWD, vitals as above, generally ill- appearing, NAD EYES: normal conjunctivae, no scleral icterus ENT: external ear and nose normal, MMM NECK: trachea midline RESPIRATORY: coarse rhonchi throughout, no rales or wheezes, slightly increased respiratory effort. CARDIOVASCULAR: regular rate and rhythm, S1 and 2 heard without murmurs, gallops or rubs, no JVD, no peripheral edema CHEST: inspection of chest was normal GASTROINTESTINAL: soft, nontender, ND, no guarding MUSCULOSKELETAL: strength 5/5 throughout, head is normocephalic and atraumatic SKIN: warm and dry, extensive tattoos NEUROLOGIC: CN 2-12 grossly intact, normal cognition, normal speech, no tremor PSYCHIATRIC: alert cooperative and oriented to person, place and time. Results & Data Results & Data ([facility]) Vital Signs (Past 12 Hours) Vital Signs Temp Pulse Pulse Resp BP Pulse Ox 03/01/21 15:45 36.7 C 81 22 147/78 H 90 03/01/21 12:02 73 20 130/77 90 03/01/21 08:00 77 03/01/21 07:46 36.5 C 67 21 146/79 H 89 L Laboratory Results BMP 02/28/21 02/28/21 02/28/21 17:25 20:12 23:47 Sodium 137 137 Potassium 4.2 D 4.4 4.8 Chloride 106 108 H Carbon Dioxide 23 24 BUN 27 H 26 H Creatinine 0.93 D 0.85 Glucose 188 H 188 H Calcium 8.8 8.6 03/01/21 03/01/21 03/01/21 04:07 07:37 11: Sodium 138 137 136 Potassium 4.7 5.0 4.4 Chloride 108 H 108 H 107 Carbon Dioxide 23 22 23 BUN 25 H 24 H 24 H Creatinine 0.86 0.82 0.88 Glucose 147 H 187 H 242 H Calcium 9.0 8.8 8.9 Medications Administered Current Inpatient Medications Acetaminophen (Acetaminophen 325 Mg Tab) 650 mg PO Q4H PRN PRN Reason: Pain or Fever Stop: 03/29/21 15:52 Aripiprazole (Aripiprazole 15 Mg Tab) 15 mg PO HS PITO Stop: 03/30/21 20:59 Last Admin: 02/28/21 23:53 Dose: 15 mg Documented by: Dextrose (Dextrose 50% 50 Ml Syringe) 25 - 50 ml IV UD PRN; Protocol PRN Reason: Hypoglycemia Protocol Stop: 03/29/21 15:52 Enoxaparin Sodium (Enoxaparin Inj 40 Mg/0.4 Ml Syr) 40 mg SQ Q12H PITO Stop: 03/29/21 17:59 Last Admin: 03/01/21 06:38 Dose: 40 mg Documented by: Furosemide (Furosemide Inj 20 Mg/2 Ml Vial) 20 mg IV DAILY PITO Stop: 04/01/21 08:59 Glucagon (Glucagon For Inj 1 Mg Vial) 1 mg SQ UD PRN; Protocol PRN Reason: Hypoglycemia Protocol Stop: 03/29/21 15:52 Glucose (Glucose 10 Tabs/Tube) 4 - 8 tabs PO UD PRN; Protocol PRN Reason: Hypoglycemia Protocol Stop: 03/29/21 15:52 Glucose (Glucose 40% Gel 15 Gm Tube) 15 - 30 gm PO UD PRN; Protocol PRN Reason: Hypoglycemia Protocol Stop: 03/29/21 15:52 Guaifenesin/Codeine Phosphate (Guaifenesin/Codeine 200mg/20mg 10ml Udc) 10 ml PO Q6H PRN PRN Reason: Cough Stop: 03/29/21 16:25 Dexamethasone 6 mg/ Syringe 1.5 mls @ 1 mls/min IV DAILY PITO Stop: 03/30/21 08:59 Last Admin: 03/01/21 08:34 Dose: 1 mls/min Documented by: Insulin Human Regular 250 (units/ Sodium Chloride) 250 mls @ 4.3 mls/hr IV .Q24H PITO; Protocol Stop: 03/30/21 10:29 Last Titration: 03/01/21 14:05 Dose: 4.3 units/hr, 4.3 mls/hr Documented by: Insulin Aspart (Insulin Aspart 100 Units/Ml 3 Ml Pen) 0 units SC ACHS PITO Stop: 03/30/21 11:29 Last Admin: 03/01/21 12:49 Dose: 17 units Documented by: Insulin Glargine (Insulin Glargine Solostar 100 Units/Ml 3 Ml Pen) 0 units SC HS PITO; Protocol Stop: 03/29/21 17:59 Lisinopril (Lisinopril 40 Mg Tab) 40 mg PO DAILY PITO Stop: 03/31/21 08:59 Last Admin: 03/01/21 10:35 Dose: 40 mg Documented by: Mirtazapine (Mirtazapine Soltab 15 Mg) 45 mg PO HS [facility] Stop: 03/30/21 20:59 Last Admin: 02/28/21 23:53 Dose: 45 mg Documented by: Miscellaneous (Carbohydrates For Hypoglycemia ) 15 - 30 gm PO UD PRN PRN Reason: Hypoglycemia Protocol Stop: 03/29/21 15:52 Miscellaneous Information (Pharmacy Glycemic Mgmt Consult) 1 ea N/A UD PRN PRN Reason: Consult Stop: 03/30/21 08:16 Ondansetron HCl (Ondansetron Inj 2 Mg/Ml 2 Ml Vial) 4 mg IV Q6H PRN PRN Reason: Nausea Stop: 03/29/21 15:52 Polyethylene Glycol (Polyethylene (Miralax) 17 Gm Pack) 17 gm PO DAILY PRN PRN Reason: Constipation Stop: 03/29/21 15:52 Potassium Chloride (Potassium Chloride Crtab 20 Meq Tabcr) 20 meq PO QAM PITO Stop: 04/01/21 08:59
[2021-03-01] MEDS: ARIPiprazole 15 MG TAB PO SCH (20:11)
[2021-03-01] MEDS: MIRTAZAPINE SOLTAB 15 MG PO SCH (20:11)
[2021-03-01] MEDS: BENZONATATE 100 MG CAPSULE PO SCH (20:20)
[2021-03-02] MEDS: INSULIN REGULAR 250 UNITS in SODIUM CHLORIDE 0.9% 247.5 ML IV SCH (00:18)
[2021-03-02] MEDS: ENOXAPARIN INJ 40 MG/0.4 ML SYR SQ SCH ×2 (06:28→17:50)
[2021-03-02 06:30] LABS: Hematocrit (blood only) 47.1 % (42-52); Hemoglobin 16.1 g/dL (14.0-18.0); Mean Corpuscular Hemoglobin 29.9 pg (25-34); Mean Corpuscular Hgb Conc 34.2 g/dL (32-36); Mean Corpuscular Volume 87.5 fL (80-100); Mean Platelet Volume 11.3 fL (7.4-10.4); Platelet Count 114 K/uL (130-400); RDW Coefficient of Variation 14.1 % (11.5-14.5); RDW Standard Deviation 45.2 fL (36.4-46.3); Red Blood Count 5.38 M/uL (4.7-6.1); White Blood Count 6.79 K/uL (4.8-10.8)
[2021-03-02 07:06] LABS: BUN Creatinine Ratio 27.3 (10-20); Calcium 9.1 mg/dl (8.5-10.1); Creatinine Clr Calc Pharmacy 129.1 ml/min; Est GFR (African American) 117.8 ml/min; Est GFR (Non-African American) 101.6 ml/min; Magnesium 2.2 mg/dl (1.8-2.4); Potassium 4.5 mmol/L (3.5-5.1)
[2021-03-02 07:09] LABS: C Reactive Protein 0.59 mg/dl (0-0.29); Phosphorus 3.6 mg/dl (2.5-4.9)
[2021-03-02] MEDS ORDERED: INSULIN GLARGINE SOLOSTAR 100 UNITS/ML 3 ML PEN SC ONE (07:15)
[2021-03-02] MEDS: INSULIN ASPART 100 UNITS/ML 3 ML PEN SC SCH ×4 (09:00→21:09)
[2021-03-02] MEDS ORDERED: INSULIN HUMAN NPH SC SCH (09:00)
[2021-03-02] MEDS ORDERED: FUROSEMIDE INJ 20 MG/2 ML VIAL IV SCH (09:00)
[2021-03-02] MEDS: BENZONATATE 100 MG CAPSULE PO SCH ×3 (09:04→20:46)
[2021-03-02] MEDS: POTASSIUM CHLORIDE CRTAB 20 MEQ TABCR PO SCH (09:06)
[2021-03-02] MEDS: lisinopril 40 MG TAB PO SCH (09:06)
[2021-03-02] MEDS: dexAMETHasone 6 MG in SYRINGE 0 ML IV SCH (09:06)
--- NOTE | 2021-03-02 14:15 | Pharmacy Report ---
Pharmacy Glycemic Short Note 2 - Date of Service March 02, 2021 - Glycemic Short BSG Results (Last 24 hours): 03/01/21 03/01/21 03/01/21 14:04 14:55 16:04 Glucose POC Glucose 293 H 281 H 260 H 03/01/21 03/01/21 03/01/21 17:13 17:59 20:08 Glucose POC Glucose 228 H 227 H 234 H 03/01/21 03/01/21 03/01/21 21:04 22:14 23:04 Glucose POC Glucose 215 H 197 H 201 H 03/02/21 03/02/21 03/02/21 00:16 01:10 02:57 Glucose POC Glucose 159 H 168 H 144 H 03/02/21 03/02/21 03/02/21 04:01 05:30 06:15 Glucose 136 H POC Glucose 122 H 120 H 03/02/21 03/02/21 03/02/21 06:18 07:05 10:11 Glucose POC Glucose 115 H 127 H 272 H 03/02/21 11:16 Glucose POC Glucose 279 H OUTPATIENT ANTIDIABETIC REGIMEN: * uncertain * A1c = 11.1% 02/28/21 ASSESSMENT: 03/02: * Insulin infusion titrated off this morning, continues with dexamethasone 6 mg IV daily * Increased NPH for dexamethasone coverage to ~0.35 mg/kg, lunch BSG elevated, will plan on increasing tomorrow * Tightened carb ratio 03/01 * Insulin infusion continues to infuse, was down to 3 units/hr but increased at lunch- patient restarted diet, dextrose of was discontinued * Will give 1x dose of NPH now to help with steroid coverage and move to AM dosing with dex tomorrow. Will set scale for PM lantus to help transition off of insulin infusion 02/28 * Type 2 diabetic admitted to Telemetry for COVID19 pneumonia with hypoxia * Patient was severely hyperglycemic (without AG acidosis) on admission. Severe hyperglycemia persists despite use of weight-based SQ insulin doses at "severe" stress level. * Will initiate IV insulin drip with current basal insulin order to help quickly and safely bring BSGs to goal. Continuing current basal dose will allow for smoother transition off insulin drip once true needs are better known with current stressors. * Novolog SQ will be given with meals to prevent unnecessary upwards titrations in IV insulin infusion rates PLAN FOR INPATIENT GLYCEMIC CONTROL: * Basal insulin * Lantus 30/35 units/BID * NPH 40 units with dexamethasone * Bolus insulin * NovoLog SQ with meals * Correction factor: 15 mg/dl/unit * Nutritional / Prandial insulin per carb ratio of 1 unit per 3 grams CHO consumed PLAN FOR DISCHARGE: * to be determined
[2021-03-02] MEDS: POLYETHYLENE (MIRALAX) 17 GM PACK PO PRN (18:44)
--- NOTE | 2021-03-02 20:01 | Hospitalist Progress Note ---
Date of Service March 02, 2021 Assessment & Plan (1) Acute respiratory failure due to COVID-19: Plan: per plan beow. (2) Pneumonia due to COVID-19 virus: Plan: Out of the window for treatment with remdesivir. Cont with daily decadron. Cough suppressant and Lasix PRN. Good diuresis with Lasix overnight, will hold on further doses at this time. Oxygen supplementation as needed. Prone as often as possible, but currently not tolerating. (3) DMII (diabetes mellitus, type 2): Plan: A1C is 11 indicating poor control. Cont basal bolus insulin per glycemic pharmacist. (4) DKA (diabetic ketoacidosis): Plan: resolved. (5) HTN (hypertension): Plan: Around his goal. Lasix now as above. cont current therapy. (6) Asthma: Plan: no evidence of wheezing at this time. Chronic, appears stable. Receiving steroids for covid. If wheezing begins, ok to consider bronchodilator therapy. (7) Depression: Plan: Cont Abilify and mirtazapine per home regimen. (8) DVT prophylaxis: Plan: Lovenox Full Dispo-PCU. Mallika Brown DO [facility] Hospitalist Admission and Anticipated Discharge Date Admission Date: February 27, 2021 Subjective 50 yo incarcerated diabetic man presents with hypoxia and respiratory symptoms 2/2 covid pneumonia He is still requiring oxygen today and is reporting feeling more short of breath +cough persists but is "ok" no fevers, chills, no abdominal pain or other pain intolerant of proning. Review of Systems Review of Systems: All systems were reviewed and negative except as above. Physical Exam Physical Exam: CONSTITUTIONAL: WNWD, vitals as above, generally ill- appearing, NAD EYES: normal conjunctivae, no scleral icterus ENT: external ear and nose normal, MMM NECK: trachea midline RESPIRATORY: coarse rhonchi throughout, crackles at bases, no wheezing, normal respiratory effort. CARDIOVASCULAR: regular rate and rhythm, S1 and 2 heard without murmurs, gallops or rubs, no JVD, no peripheral edema CHEST: inspection of chest was normal GASTROINTESTINAL: soft, nontender, ND, no guarding MUSCULOSKELETAL: strength 5/5 throughout, head is normocephalic and atraumatic SKIN: warm and dry, extensive tattoos NEUROLOGIC: CN 2-12 grossly intact, normal cognition, normal speech, no tremor PSYCHIATRIC: alert cooperative and oriented to person, place and time. Results & Data Results & Data ([facility]) Vital Signs (Past 12 Hours) Vital Signs Temp Pulse Pulse Pulse Resp BP Pulse Ox 03/02/21 16:15 36.6 C 72 16 123/74 89 L 03/02/21 15:35 70 03/02/21 11:19 37.0 C 70 18 122/71 91 Laboratory Results Short CBC 03/02/21 Range/Units 06:15 WBC 6.79 (4.8-10.8) K/uL Hgb 16.1 (14.0-18.0) g/dL Hct 47.1 (42-52) % Plt Count 114 L (130-400) K/uL BMP 03/02/21 06:15 Sodium 139 Potassium 4.5 Chloride 110 H Carbon Dioxide 24 BUN 23 H Creatinine 0.85 Glucose 136 H Calcium 9.1 Medications Administered Current Inpatient Medications Acetaminophen (Acetaminophen 325 Mg Tab) 650 mg PO Q4H PRN PRN Reason: Pain or Fever Stop: 03/29/21 15:52 Aripiprazole (Aripiprazole 15 Mg Tab) 15 mg PO HS PITO Stop: 03/30/21 20:59 Last Admin: 03/01/21 20:11 Dose: 15 mg Documented by: Benzonatate (Benzonatate 100 Mg Capsule) 100 mg PO TID PITO Stop: 03/31/21 20:59 Last Admin: 03/02/21 13:39 Dose: 100 mg Documented by: Dextrose (Dextrose 50% 50 Ml Syringe) 25 - 50 ml IV UD PRN; Protocol PRN Reason: Hypoglycemia Protocol Stop: 03/29/21 15:52 Enoxaparin Sodium (Enoxaparin Inj 40 Mg/0.4 Ml Syr) 40 mg SQ Q12H PITO Stop: 03/29/21 17:59 Last Admin: 03/02/21 17:50 Dose: 40 mg Documented by: Furosemide (Furosemide Inj 20 Mg/2 Ml Vial) 20 mg IV DAILY PITO Stop: 04/01/21 08:59 Last Admin: 03/02/21 09:05 Dose: 20 mg Documented by: Glucagon (Glucagon For Inj 1 Mg Vial) 1 mg SQ UD PRN; Protocol PRN Reason: Hypoglycemia Protocol Stop: 03/29/21 15:52 Glucose (Glucose 10 Tabs/Tube) 4 - 8 tabs PO UD PRN; Protocol PRN Reason: Hypoglycemia Protocol Stop: 03/29/21 15:52 Glucose (Glucose 40% Gel 15 Gm Tube) 15 - 30 gm PO UD PRN; Protocol PRN Reason: Hypoglycemia Protocol Stop: 03/29/21 15:52 Guaifenesin/Codeine Phosphate (Guaifenesin/Codeine 200mg/20mg 10ml Udc) 10 ml PO Q6H PRN PRN Reason: Cough Stop: 03/29/21 16:25 Last Admin: 03/02/21 18:44 Dose: 10 ml Documented by: Dexamethasone 6 mg/ Syringe 1.5 mls @ 1 mls/min IV DAILY [facility] Stop: 03/30/21 08:59 Last Admin: 03/02/21 09:06 Dose: 1 mls/min Documented by: Insulin Aspart (Insulin Aspart 100 Units/Ml 3 Ml Pen) 0 units SC ACHS [facility] Stop: 03/30/21 11:29 Last Admin: 03/02/21 17:15 Dose: 26 units Documented by: Insulin Aspart (Insulin Aspart 100 Units/Ml 3 Ml Pen) 0 units SC TODAY@0000,0400 [facility] Stop: 03/03/21 04:01 Insulin Glargine (Insulin Glargine Solostar 100 Units/Ml 3 Ml Pen) 0 units SC [facility]; Protocol Stop: 03/29/21 17:59 Last Admin: 03/01/21 20:12 Dose: 35 units Documented by: Insulin Glargine (Insulin Glargine Solostar 100 Units/Ml 3 Ml Pen) 0 units SC BID [facility]; Protocol Stop: 04/01/21 20:59 Insulin Human NPH (Insulin Human Nph) 40 units SC QAM [facility] Stop: 04/01/21 08:59 Last Admin: 03/02/21 09:27 Dose: 40 units Documented by: Lisinopril (Lisinopril 40 Mg Tab) 40 mg PO DAILY [facility] Stop: 03/31/21 08:59 Last Admin: 03/02/21 09:06 Dose: 40 mg Documented by: Mirtazapine (Mirtazapine Soltab 15 Mg) 45 mg PO HS [facility] Stop: 03/30/21 20:59 Last Admin: 03/01/21 20:11 Dose: 45 mg Documented by: Miscellaneous (Carbohydrates For Hypoglycemia ) 15 - 30 gm PO UD PRN PRN Reason: Hypoglycemia Protocol Stop: 03/29/21 15:52 Miscellaneous Information (Pharmacy Glycemic Mgmt Consult) 1 ea N/A UD PRN PRN Reason: Consult Stop: 03/30/21 08:16 Ondansetron HCl (Ondansetron Inj 2 Mg/Ml 2 Ml Vial) 4 mg IV Q6H PRN PRN Reason: Nausea Stop: 03/29/21 15:52 Polyethylene Glycol (Polyethylene (Miralax) 17 Gm Pack) 17 gm PO DAILY PRN PRN Reason: Constipation Stop: 03/29/21 15:52 Last Admin: 03/02/21 18:44 Dose: 17 gm Documented by: Potassium Chloride (Potassium Chloride Crtab 20 Meq Tabcr) 20 meq PO QAM [facility] Stop: 04/01/21 08:59 Last Admin: 03/02/21 09:06 Dose: 20 meq Documented by:
[2021-03-02] MEDS: MIRTAZAPINE SOLTAB 15 MG PO SCH (20:45)
[2021-03-02] MEDS: ARIPiprazole 15 MG TAB PO SCH (20:45)
[2021-03-02] MEDS: INSULIN GLARGINE SOLOSTAR 100 UNITS/ML 3 ML PEN SC SCH (21:10)
[2021-03-03] MEDS: INSULIN ASPART 100 UNITS/ML 3 ML PEN SC SCH ×6 (00:50→20:58)
[2021-03-03] MEDS: INSULIN GLARGINE SOLOSTAR 100 UNITS/ML 3 ML PEN SC SCH ×3 (00:51→20:56)
[2021-03-03] MEDS: ENOXAPARIN INJ 40 MG/0.4 ML SYR SQ SCH ×2 (05:08→17:56)
[2021-03-03] MEDS ORDERED: COUGH DROP (SUGAR FREE) LOZ 24 LOZ/1 BOX BUCCAL PRN (05:28)
[2021-03-03 06:49] LABS: Hematocrit (blood only) 46.8 % (42-52); Mean Corpuscular Hemoglobin 29.6 pg (25-34); Mean Corpuscular Hgb Conc 34.2 g/dL (32-36); Mean Corpuscular Volume 86.7 fL (80-100); Mean Platelet Volume 11.7 fL (7.4-10.4); Platelet Count 120 K/uL (130-400); RDW Coefficient of Variation 14.1 % (11.5-14.5); RDW Standard Deviation 44.4 fL (36.4-46.3); White Blood Count 5.91 K/uL (4.8-10.8)
[2021-03-03 07:19] LABS: Potassium 4.5 mmol/L (3.5-5.1)
[2021-03-03 08:08] LABS: BUN Creatinine Ratio 24.8 (10-20); C Reactive Protein 0.68 mg/dl (0-0.29); Creatinine Clr Calc Pharmacy 137.3 ml/min; Est GFR (African American) 120.7 ml/min; Est GFR (Non-African American) 104.2 ml/min; Magnesium 2.1 mg/dl (1.8-2.4)
[2021-03-03 08:09] LABS: Phosphorus 3.6 mg/dl (2.5-4.9)
--- NOTE | 2021-03-03 08:27 | XRay Report ---
XR chest 1V portable HISTORY: post-operative coughing and wheezing COMPARISON: Chest 02/27/2021. FINDINGS: There are few small scattered patchy airspace opacities seen within the lungs. This has sli ghtly progressed compared to the prior study and is consistent with a viral pneumonia. No pleural fus ions. No pneumothorax. The heart is normal in size. No evidence for pulmonary edema. IMPRESSION: Slight progression of the scattered patchy airspace opacities within the lungs consistent with a elizabeth l pneumonia. ACT 112: Negative or not required by law. Electronically signed by: Puneet Pratt M.D. 03/03/2021 8:26 AM
[2021-03-03] MEDS: dexAMETHasone 6 MG in SYRINGE 0 ML IV SCH (08:31)
[2021-03-03] MEDS: POTASSIUM CHLORIDE CRTAB 20 MEQ TABCR PO SCH (08:31)
[2021-03-03] MEDS: lisinopril 40 MG TAB PO SCH (08:32)
[2021-03-03] MEDS: BENZONATATE 100 MG CAPSULE PO SCH ×3 (08:39→21:08)
[2021-03-03] MEDS: INSULIN HUMAN NPH SC SCH (08:54)
--- NOTE | 2021-03-03 14:48 | Pharmacy Report ---
Pharmacy Glycemic Short Note 2 - Date of Service March 03, 2021 - Glycemic Short BSG Results (Last 24 hours): 03/02/21 03/02/21 03/03/21 16:57 20:38 00:45 Glucose POC Glucose 238 H 260 H 214 H 03/03/21 03/03/21 03/03/21 05:00 06:09 07:35 Glucose 177 H POC Glucose 186 H 135 H 03/03/21 11:41 Glucose POC Glucose 240 H OUTPATIENT ANTIDIABETIC REGIMEN: * uncertain * A1c = 11.1% 02/28/21 ASSESSMENT: 03/03: * Continues on dex 6mg daily. Type 2 DM diet ordered * BSGs improved since yesterday. NPH increased to 45 units (~0.4units/kg) today given high prandial BSGs yesterday. Novolog correction tightened to improve prandial BSGs as well. * No change to Lantus regimen today. 03/02: * Insulin infusion titrated off this morning, continues with dexamethasone 6 mg IV daily * Increased NPH for dexamethasone coverage to ~0.35 mg/kg, lunch BSG elevated, will plan on increasing tomorrow * Tightened carb ratio 03/01 * Insulin infusion continues to infuse, was down to 3 units/hr but increased at lunch- patient restarted diet, dextrose of was discontinued * Will give 1x dose of NPH now to help with steroid coverage and move to AM dosing with dex tomorrow. Will set scale for PM lantus to help transition off of insulin infusion 02/28 * Type 2 diabetic admitted to Telemetry for COVID19 pneumonia with hypoxia * Patient was severely hyperglycemic (without AG acidosis) on admission. Severe hyperglycemia persists despite use of weight-based SQ insulin doses at "severe" stress level. * Will initiate IV insulin drip with current basal insulin order to help quickly and safely bring BSGs to goal. Continuing current basal dose will allow for smoother transition off insulin drip once true needs are better known with current stressors. * Novolog SQ will be given with meals to prevent unnecessary upwards titrations in IV insulin infusion rates PLAN FOR INPATIENT GLYCEMIC CONTROL: * Basal insulin * Lantus 30/35 units/BID * NPH 45 units with dexamethasone * Bolus insulin * NovoLog SQ with meals * Correction factor: 12 mg/dl/unit * Nutritional / Prandial insulin per carb ratio of 1 unit per 3 grams CHO consumed PLAN FOR DISCHARGE: * to be determined
--- NOTE | 2021-03-03 18:59 | Hospitalist Progress Note ---
Date of Service March 03, 2021 Assessment & Plan (1) Acute respiratory failure due to COVID-19: Plan: per plan beow. (2) Pneumonia due to COVID-19 virus: Plan: Progression of viral pneumonia seen on CXR this morning. Escalating needs for oxygen supplementation overnight and today. Transition him to vapotherm now and encouraged to prone once set up on this. We discussed the progression to BIPAP and intubation if needed and he verbalized understanding of this if needed. Out of the window for treatment with remdesivir. Cont with daily decadron. Cough suppressant and Lasix PRN. Continues to diurese well into the ontiveros, will hold on further doses of Lasix at this time. Oxygen supplementation as needed. Prone as often as possible, but currently not tolerating. (3) DMII (diabetes mellitus, type 2): Plan: A1C is 11 indicating poor control. Currently at inpatient goal. Cont basal bolus insulin per glycemic pharmacist. (4) HTN (hypertension): Plan: Slightly elevated this evening but has been controlled all day on home lisinopril. He is also having worsening respiratory distress which may be contributing. Cont lisinopril and monitor. Diet adjusted to low salt. (5) Asthma: Plan: no evidence of wheezing at this time. Chronic, appears stable. Receiving steroids for covid. If wheezing begins, ok to consider bronchodilator therapy. (6) Depression: Plan: Cont Abilify and mirtazapine per home regimen. (7) DVT prophylaxis: Plan: Lovenox Full Dispo-PCU. Mallika Brown DO [facility] Hospitalist Admission and Anticipated Discharge Date Admission Date: February 27, 2021 Subjective 50 yo incarcerated diabetic man presents with hypoxia and respiratory symptoms 2/2 covid pneumonia He is still requiring oxygen today and is reporting feeling more short of breath +cough persists but is "ok" no fevers, chills, no abdominal pain or other pain intolerant of proning. Review of Systems Review of Systems: All systems were reviewed and negative except as above. Physical Exam Physical Exam: CONSTITUTIONAL: WNWD, vitals as above, generally ill- appearing, NAD EYES: normal conjunctivae, no scleral icterus ENT: external ear and nose normal, MMM NECK: trachea midline RESPIRATORY: +crackles, no wheezing, normal respiratory effort. CARDIOVASCULAR: regular rate and rhythm, S1 and 2 heard without murmurs, gallops or rubs, no JVD, no peripheral edema CHEST: inspection of chest was normal GASTROINTESTINAL: soft, nontender, ND, no guarding MUSCULOSKELETAL: strength 5/5 throughout, head is normocephalic and atraumatic SKIN: warm and dry, extensive tattoos NEUROLOGIC: CN 2-12 grossly intact, normal cognition, normal speech, no tremor PSYCHIATRIC: alert cooperative and oriented to person, place and time. Results & Data Results & Data ([facility]) Vital Signs (Past 12 Hours) Vital Signs Temp Pulse Pulse Resp BP Pulse Ox 03/03/21 16:33 36.8 C 84 22 163/91 H 89 L 03/03/21 11:43 36.6 C 90 23 133/84 90 03/03/21 07:50 75 03/03/21 07:39 36.5 C 76 22 137/94 89 L Laboratory Results Short CBC 03/03/21 Range/Units 06:09 WBC 5.91 (4.8-10.8) K/uL Hgb 16.0 (14.0-18.0) g/dL Hct 46.8 (42-52) % Plt Count 120 L (130-400) K/uL BMP 03/03/21 06:09 Sodium 135 L Potassium 4.5 Chloride 106 Carbon Dioxide 22 BUN 20 H Creatinine 0.80 Glucose 177 H Calcium 9.0 Diagnostic Findings Chest X-Ray 03/03/21 07:00 XR chest 1V portable HISTORY: post-operative coughing and wheezing COMPARISON: Chest 02/27/2021. FINDINGS: There are few small scattered patchy airspace opacities seen within the lungs. This has slightly progressed compared to the prior study and is consistent with a viral pneumonia. No pleural fusions. No pneumothorax. The heart is normal in size. No evidence for pulmonary edema. IMPRESSION: Slight progression of the scattered patchy airspace opacities within the lungs consistent with a viral pneumonia. ACT 112: Negative or not required by law. Electronically signed by: Puneet Pratt M.D. 03/03/2021 8:26 AM Medications Administered Current Inpatient Medications Acetaminophen (Acetaminophen 325 Mg Tab) 650 mg PO Q4H PRN PRN Reason: Pain or Fever Stop: 03/29/21 15:52 Aripiprazole (Aripiprazole 15 Mg Tab) 15 mg PO HS PITO Stop: 03/30/21 20:59 Last Admin: 03/02/21 20:45 Dose: 15 mg Documented by: Benzonatate (Benzonatate 100 Mg Capsule) 100 mg PO TID PITO Stop: 03/31/21 20:59 Last Admin: 03/03/21 15:01 Dose: 100 mg Documented by: Dextrose (Dextrose 50% 50 Ml Syringe) 25 - 50 ml IV UD PRN; Protocol PRN Reason: Hypoglycemia Protocol Stop: 03/29/21 15:52 Enoxaparin Sodium (Enoxaparin Inj 40 Mg/0.4 Ml Syr) 40 mg SQ Q12H PITO Stop: 03/29/21 17:59 Last Admin: 03/03/21 17:56 Dose: 40 mg Documented by: Furosemide (Furosemide Inj 20 Mg/2 Ml Vial) 20 mg IV DAILY [facility] Stop: 04/01/21 08:59 Last Admin: 03/02/21 09:05 Dose: 20 mg Documented by: Glucagon (Glucagon For Inj 1 Mg Vial) 1 mg SQ UD PRN; Protocol PRN Reason: Hypoglycemia Protocol Stop: 03/29/21 15:52 Glucose (Glucose 10 Tabs/Tube) 4 - 8 tabs PO UD PRN; Protocol PRN Reason: Hypoglycemia Protocol Stop: 03/29/21 15:52 Glucose (Glucose 40% Gel 15 Gm Tube) 15 - 30 gm PO UD PRN; Protocol PRN Reason: Hypoglycemia Protocol Stop: 03/29/21 15:52 Guaifenesin/Codeine Phosphate (Guaifenesin/Codeine 200mg/20mg 10ml Udc) 10 ml PO Q6H PRN PRN Reason: Cough Stop: 03/29/21 16:25 Last Admin: 03/03/21 12:41 Dose: 10 ml Documented by: Dexamethasone 6 mg/ Syringe 1.5 mls @ 1 mls/min IV DAILY PITO Stop: 03/30/21 08:59 Last Admin: 03/03/21 08:31 Dose: 1 mls/min Documented by: Insulin Aspart (Insulin Aspart 100 Units/Ml 3 Ml Pen) 0 units SC ACHS [facility] Stop: 03/30/21 11:29 Last Admin: 03/03/21 17:48 Dose: 24 units Documented by: Insulin Glargine (Insulin Glargine Solostar 100 Units/Ml 3 Ml Pen) 0 units SC BID [facility]; Protocol Stop: 04/01/21 20:59 Last Admin: 03/03/21 08:54 Dose: 30 units Documented by: Insulin Human NPH (Insulin Human Nph) 45 units SC QAM [facility] Stop: 04/01/21 08:59 Last Admin: 03/03/21 08:54 Dose: 45 units Documented by: Lisinopril (Lisinopril 40 Mg Tab) 40 mg PO DAILY [facility] Stop: 03/31/21 08:59 Last Admin: 03/03/21 08:32 Dose: 40 mg Documented by: Menthol (Cough Drop (Sugar Free) Levon 24 Levon/1 Box) 1 levon BUCCAL PRN PRN PRN Reason: Sore Throat Stop: 04/02/21 05:27 Last Admin: 03/03/21 06:31 Dose: 1 levon Documented by: Mirtazapine (Mirtazapine Soltab 15 Mg) 45 mg PO HS [facility] Stop: 03/30/21 20:59 Last Admin: 03/02/21 20:45 Dose: 45 mg Documented by: Miscellaneous (Carbohydrates For Hypoglycemia ) 15 - 30 gm PO UD PRN PRN Reason: Hypoglycemia Protocol Stop: 03/29/21 15:52 Miscellaneous Information (Pharmacy Glycemic Mgmt Consult) 1 ea N/A UD PRN PRN Reason: Consult Stop: 03/30/21 08:16 Ondansetron HCl (Ondansetron Inj 2 Mg/Ml 2 Ml Vial) 4 mg IV Q6H PRN PRN Reason: Nausea Stop: 03/29/21 15:52 Polyethylene Glycol (Polyethylene (Miralax) 17 Gm Pack) 17 gm PO DAILY PRN PRN Reason: Constipation Stop: 03/29/21 15:52 Last Admin: 03/02/21 18:44 Dose: 17 gm Documented by: Potassium Chloride (Potassium Chloride Crtab 20 Meq Tabcr) 20 meq PO QAM [facility] Stop: 04/01/21 08:59 Last Admin: 03/03/21 08:31 Dose: 20 meq Documented by:
[2021-03-03] MEDS: ACETAMINOPHEN 325 MG TAB PO PRN (20:48)
[2021-03-03] MEDS: traMADol HCL 50 MG TABLET PO PRN (20:48)
[2021-03-03] MEDS: MIRTAZAPINE SOLTAB 15 MG PO SCH (21:01)
[2021-03-03] MEDS: ARIPiprazole 15 MG TAB PO SCH (21:01)
[2021-03-03 21:39] LABS: Hematocrit (blood only) 46.3 % (42-52); Hemoglobin 15.8 g/dL (14.0-18.0); Immature Granulocytes # (auto) 0.03 K/uL (0.00-0.02); Immature Granulocytes % (auto) 0.6 %; Lymphocytes # (auto) 0.88 K/uL (1.2-3.4); Lymphocytes % (auto) 17.7 %; Mean Corpuscular Hemoglobin 29.8 pg (25-34); Mean Corpuscular Hgb Conc 34.1 g/dL (32-36); Mean Corpuscular Volume 87.4 fL (80-100); Mean Platelet Volume 11.6 fL (7.4-10.4); Monocytes # (auto) 0.28 K/uL (0.11-0.59); Monocytes % (auto) 5.6 %; Neutrophils # (auto) 3.79 K/uL (1.4-6.5); Neutrophils % (auto) 76.1 %; Platelet Count 109 K/uL (130-400); RDW Coefficient of Variation 13.9 % (11.5-14.5); RDW Standard Deviation 43.9 fL (36.4-46.3); White Blood Count 4.98 K/uL (4.8-10.8)
[2021-03-03 21:59] LABS: Albumin Level 2.6 gm/dl (3.4-5.0); BUN Creatinine Ratio 20.8 (10-20); Calcium 9.1 mg/dl (8.5-10.1); Creatinine Clr Calc Pharmacy 115.6 ml/min; Est GFR (African American) 107.7 ml/min; Potassium 4.5 mmol/L (3.5-5.1)
[2021-03-03 22:02] LABS: Albumin Globulin Ratio 0.6 (0.9-2); Bilirubin,Total 0.6 mg/dl (0.2-1); Globulin 4.5 gm/dl (2.5-4.0); Total Protein 7.1 gm/dl (6.4-8.2)
[2021-03-03 22:53] LABS: Appearance Urine Clear (Clear); Bacteria Urine Automated Negative (Negative); Bilirubin Urine Negative (Negative); Blood Urine Negative (Negative); Color Urine Yellow; Epithelial Cell Urine Auto >30 /lpf (0-5); Glucose Urine UA 1+ (Negative); Ketones Urine Negative (Negative); Leukocyte Esterase Urine 1+ (Negative); Nitrite Urine Negative (Negative); Protein Urine Negative (Negative); RBC Urine Automated 0-4 /hpf (0-4); Specific Gravity Urine 1.024 (1.000-1.030); Urobilinogen Urine Negative (Negative); pH Urine 6.5 (4.5-7.5)
[2021-03-03] MEDS ORDERED: OPTIRAY 320 100ml IV ONE (23:26)
[2021-03-04] MEDS ORDERED: SODIUM CHLORIDE 0.9% 500 ML IV ONE (00:30)
[2021-03-04] MEDS: ENOXAPARIN INJ 40 MG/0.4 ML SYR SQ SCH ×2 (05:45→18:15)
[2021-03-04 07:16] LABS: Hematocrit (blood only) 46.2 % (42-52); Mean Corpuscular Hemoglobin 30.2 pg (25-34); Mean Corpuscular Hgb Conc 34.6 g/dL (32-36); Mean Corpuscular Volume 87.2 fL (80-100); Mean Platelet Volume 11.8 fL (7.4-10.4); Platelet Count 107 K/uL (130-400); RDW Coefficient of Variation 13.9 % (11.5-14.5); RDW Standard Deviation 44.2 fL (36.4-46.3); White Blood Count 5.31 K/uL (4.8-10.8)
[2021-03-04 07:48] LABS: BUN Creatinine Ratio 24.8 (10-20); Calcium 8.8 mg/dl (8.5-10.1); Creatinine Clr Calc Pharmacy 159.3 ml/min; Est GFR (African American) 128.3 ml/min; Est GFR (Non-African American) 110.7 ml/min; Potassium 4.2 mmol/L (3.5-5.1)
[2021-03-04 07:49] LABS: C Reactive Protein 2.06 mg/dl (0-0.29); Phosphorus 3.9 mg/dl (2.5-4.9)
[2021-03-04] MEDS: dexAMETHasone 6 MG in SYRINGE 0 ML IV SCH (08:40)
[2021-03-04] MEDS: POTASSIUM CHLORIDE CRTAB 20 MEQ TABCR PO SCH (08:44)
[2021-03-04] MEDS: lisinopril 40 MG TAB PO SCH (08:44)
[2021-03-04] MEDS: INSULIN GLARGINE SOLOSTAR 100 UNITS/ML 3 ML PEN SC SCH ×2 (08:48→21:16)
[2021-03-04] MEDS: INSULIN ASPART 100 UNITS/ML 3 ML PEN SC SCH ×4 (08:48→21:18)
[2021-03-04] MEDS: INSULIN HUMAN NPH SC SCH (08:49)
[2021-03-04] MEDS: BENZONATATE 100 MG CAPSULE PO SCH ×3 (08:52→21:11)
--- NOTE | 2021-03-04 10:08 | CT Scan Report ---
CT abd pelvis IV con only CLINICAL HISTORY: L abd pain TECHNIQUE: Helical axial images of the abdomen and pelvis were obtained and displayed. Automated dose lowering techniques and/or adjustment according to patient size were utilized for this exam. This e xam was performed with intravenous contrast. COMPARISON: None available at the time of this dictation. FINDINGS: Lower chest: Diffuse groundglass and reticular opacities are seen within the chest. Liver: Nodular contour of the liver is seen compatible with cirrhosis. Gallbladder and biliary tree: A large gallstone is in the gallbladder neck without evidence of acute cholecystitis. No intra- or extrahepatic biliary ductal dilation. Pancreas: Unremarkable, no focal lesions. Spleen: Splenomegaly is noted, the spleen measures 14 cm in greatest coronal dimension. Adrenals: Unremarkable. Kidneys and ureters: Unremarkable. Bladder: Unremarkable. Reproductive organs: Unremarkable. Bowel: Unremarkable appearance of the bowel. The appendix is normal. Lymph nodes Retroperitoneal: Unremarkable. Mesenteric: Unremarkable. Pelvic: Unremarkable. Peritoneum: Normal Vessels: Unremarkable. Abdominal wall: Unremarkable. Bones: Unremarkable. IMPRESSION: 1. No acute abnormalities. 2. Cholelithiasis without evidence of cholecystitis. 3. Cirrhosis and splenomegaly. 4. Partial visualization of diffuse groundglass and reticular opacities in the lower lungs compatibl e with pneumonia. ACT 112: Negative or not required by law. Electronically signed by: Caleb Israel M.D. 03/04/2021 10:06 AM
[2021-03-04] MEDS ORDERED: FUROSEMIDE INJ 20 MG/2 ML VIAL IV ONE (10:15)
[2021-03-04] MEDS: BUDESONIDE 0.5 MG/2 ML VIAL (PULMICORT) NEB SCH ×2 (11:58→19:45)
[2021-03-04] MEDS ORDERED: dexAMETHasone 4 MG in SYRINGE 0 ML IV ONE (13:45)
--- NOTE | 2021-03-04 13:53 | Pulmonary Consultation ---
Date of Consultation March 04, 2021 Assessment & Plan (1) Acute respiratory failure due to COVID-19: (2) Pneumonia due to COVID-19 virus: (3) Obesity: CTA chest 02/27/2021 personally reviewed:Diffuse patchy groundglass opacities appreciated bilaterally upper and lower lobes Cardiomegaly No mediastinal lymphadenopathy --Acute hypoxic respiratory failure Secondary to multilobar COVID-19 pneumonia COVID-19 PCR positive 02/27/2021 CRP 2.06 Procalcitonin 0.23--> 0.09 Continue with O2 supplementation to keep oxygen saturation between 90-92%. Awake proning will be helpful Continue with incentive spirometry Continue with flutter valve. Recommend patient to be kept euvolemic to negative balance --Morbid obesity with possible LAKHWINDER BiPAP nightly and as needed shortness of breath --Thrombocytopenia Plan: Increase dexamethasone to 10 mg Patient is baricitinib given that he is in the hospital for more than 72 hours and CRP is only 2 Continue with BiPAP/CPAP as needed shortness of breath Patient will benefit from awake proning Guaifenesin added Case discussed with Dr. Dawson Please note the above document was generated using voice recognition software. It may contain grammatical, syntax or spelling errors.Any formal questions or concerns about the content, text or information contained within the body of this dictation should be directly addressed to the provider for clarification. History of Present Illness Attending Physician: Dominick Dawson MD History of Present Illness 50-year-old presented to the hospital with complaints of shortness of breath and hypoxia Past medical history hypertension, diabetes, anxiety/depression Was found to be Covid positive on 02/21/2021 Pulmonary consult because of increasing oxygen requirement At the time of examination patient was on 60 L, 100% O2 saturating 92-93% but he was breathing in the mid 20s He has been using incentive spirometry but not that frequently Denies any significant cough denies any hemoptysis Fair appetite No headache, no nausea or vomiting Social history: Getting [id number] smoking history, has history of marijuana, heroin, cocaine use in the past Allergies Allergy/AdvReac Type Severity Reaction Status Date / Time No Known Allergies Allergy Verified 02/27/21 16:40 Home Medications Medication Instructions Recorded Confirmed Type aripiprazole 15 mg tablet (Abilify) 15 mg PO HS 02/28/21 02/28/21 History furosemide 20 mg tablet (Lasix) 20 mg PO DAILY 02/28/21 02/28/21 History glipizide 5 mg tablet 5 mg PO DAILY 02/28/21 02/28/21 History levalbuterol tartrate 45 2 inh INHALATION Q6H PRN 02/28/21 02/28/21 History mcg/actuation aerosol inhaler (Xopenex HFA) lisinopril 40 mg tablet 40 mg PO DAILY 02/28/21 02/28/21 History metformin 1,000 mg tablet 1,000 mg PO BID 02/28/21 02/28/21 History mirtazapine 45 mg tablet 45 mg PO HS 02/28/21 02/28/21 History Patient History Medical History Asthma Diabetes HTN (hypertension) Surgical History No pertinent past surgical history Family History Father Diabetes Other Patient's father is Social History Smoking Status: Current every day smoker Tobacco Type: E-cigarettes / Vaping Hx Alcohol Use: No Hx Substance Use: No Preferred Language: Iranian Communication Tools: Other Police Worker Required: Yes and Video Beliefs That Will Affect Care: Scientology Current Living Situation: Other Current Living Situation Comment: incarcerated Feels Safe at Home: Yes Assistive Devices: Oxygen - Continuous Review of Systems Review of Systems: All systems reviewed & are unremarkable except as noted in HPI & below Physical Exam Physical Exam: Constitutional: No acute distress HEENT: EOMI, PERRLA Respiratory system: Decreased air entry bilaterally, no wheeze, no rhonchi, positive crackles bilaterally CVS: S1-S2 positive, no murmurs or gallops Abdomen: Soft, nontender, nondistended, positive bowel sounds x4, obese Extremities: +2 pulses bilaterally radialis/ dorsalis pedis, no cyanosis, no edema Neuro: Awake alert oriented x3 Psych: Normal mood and affect G/U: Positive Clark Skin: no rashes, warm and dry Lymphatic: no cervical or axillary lymphadenopathy Results & Data Results & Data ([facility]) Vital Signs (Past 12 Hours) Vital Signs Temp Pulse Pulse Pulse Resp BP Pulse Ox 03/04/21 12:24 79 33 H 91 03/04/21 11:59 99 H 33 H 83 L 03/04/21 11:56 99 H 33 H 83 L 03/04/21 11:17 37.1 C 92 H 20 159/90 H 92 03/04/21 09:11 87 24 91 03/04/21 08:20 67 03/04/21 06:26 36.7 C 72 21 103/64 91 03/04/21 03:07 36.7 C 77 19 120/74 94 03/04/21 02:50 64 20 96 03/04/21 06:23 03/04/21 06:23 PG Care Time/CCT Total # of Minutes Spent Total Time Spent with Patient: Total time spent is greater than 50% in coordination of care (as documented) at patient's floor/unit and/or counseling patient: Coding Level of Care Code 62238 Inpt Consult Level 5 Diagnoses Acute respiratory failure due to COVID-19 U07.1; J96.00 Pneumonia due to COVID-19 virus U07.1; J12.82 Obesity E66.9
--- NOTE | 2021-03-04 13:57 | Pharmacy Report ---
Pharmacy Glycemic Short Note 2 - Date of Service March 04, 2021 - Glycemic Short BSG Results (Last 24 hours): 03/03/21 03/03/21 03/03/21 16:31 20:53 21:26 Glucose 234 H POC Glucose 247 H 233 H 03/04/21 03/04/21 03/04/21 06:23 07:55 11:17 Glucose 95 POC Glucose 81 285 H OUTPATIENT ANTIDIABETIC REGIMEN: * uncertain * A1c = 11.1% 02/28/21 ASSESSMENT: 03/04: * Dexamethasone increased to 10mg daily tomorrow, additional 4mg given now, increase NPH * BGSs still rising throughout the day, tighten CF/CR 03/03: * Continues on dex 6mg daily. Type 2 DM diet ordered * BSGs improved since yesterday. NPH increased to 45 units (~0.4units/kg) today given high prandial BSGs yesterday. Novolog correction tightened to improve prandial BSGs as well. * No change to Lantus regimen today. 03/02: * Insulin infusion titrated off this morning, continues with dexamethasone 6 mg IV daily * Increased NPH for dexamethasone coverage to ~0.35 mg/kg, lunch BSG elevated, will plan on increasing tomorrow * Tightened carb ratio 03/01 * Insulin infusion continues to infuse, was down to 3 units/hr but increased at lunch- patient restarted diet, dextrose of was discontinued * Will give 1x dose of NPH now to help with steroid coverage and move to AM dosing with dex tomorrow. Will set scale for PM lantus to help transition off of insulin infusion 02/28 * Type 2 diabetic admitted to Telemetry for COVID19 pneumonia with hypoxia * Patient was severely hyperglycemic (without AG acidosis) on admission. Severe hyperglycemia persists despite use of weight-based SQ insulin doses at "severe" stress level. * Will initiate IV insulin drip with current basal insulin order to help quickly and safely bring BSGs to goal. Continuing current basal dose will allow for smoother transition off insulin drip once true needs are better known with current stressors. * Novolog SQ will be given with meals to prevent unnecessary upwards titrations in IV insulin infusion rates PLAN FOR INPATIENT GLYCEMIC CONTROL: * Basal insulin * Lantus 25-30 units BID * NPH 45 units with dexamethasone this AM, then additional 20 units x 1 with extra dexamethasone this afternoon then * increase to NPH 55 units SQ daily starting tomorrow morning with Dexamethasone 10mg IV daily * Bolus insulin * NovoLog SQ with meals * Correction factor: 10 mg/dl/unit * Nutritional / Prandial insulin per carb ratio of 1 unit per 2 grams CHO consumed PLAN FOR DISCHARGE: * to be determined
[2021-03-04] MEDS ORDERED: INSULIN HUMAN NPH SQ ONE (14:00)
[2021-03-04] MEDS: traMADol HCL 50 MG TABLET PO PRN (15:28)
--- NOTE | 2021-03-04 19:30 | Hospitalist Progress Note ---
Date of Service March 04, 2021 Assessment & Plan (1) Acute respiratory failure due to COVID-19: Plan: per plan beow. (2) Pneumonia due to COVID-19 virus: Plan: Acute respiratory failure with hypoxia Secondary to multifocal COVID-19 pneumonia CTA showed diffuse patchy groundglass opacities bilaterally Procalcitonin 0.09 CRP 2.06 Increase dexamethasone to 10 mg daily Not a candidate for baricitinib currently Appreciate pulmonology input Continue respiratory support as needed Lasix as needed BiPAP/CPAP as needed We will repeat chest x-ray tomorrow (3) DMII (diabetes mellitus, type 2): Plan: HbA1C 11 Poorly controlled Continue present insulin Glycemic pharmacist consulted (4) HTN (hypertension): Plan: Blood pressure stable today Continue current medications (5) Asthma: Plan: Management as above (6) Depression: Plan: Continue Abilify, mirtazapine (7) DVT prophylaxis: Plan: Lovenox SQ CODE STATUS Full Admission and Anticipated Discharge Date Admission Date: February 27, 2021 Subjective Patient is seen and examined at bedside Patient's oxygen requirement went up today: Requiring 60 L, 100% FiO2 Discussed with pulmonology today No significant cough Dyspnea persistent intermittently Intermediate guards at bedside Offers no other complaints Review of Systems Review of Systems: All systems reviewed & are unremarkable except as noted in Subjective Physical Exam Physical Exam: Physical Exam: Vitals signs as noted above General Appearance:Obese, no apparent distress Head: normocephalic, Atraumatic Eyes: normal inspection, EOMI Neck: supple, Trachea midline Respiratory/Chest: Decreased breath sounds, B/L crackles Cardiovascular: S1, S2, No murmur Abdomen/GI:Soft, Non tender, Bowel sounds present Extremities/Musculoskeletal:normal inspection, no edema Neurologic/Psych:AAOX3, grossly no focal neurological deficits Skin: normal color, warm Results & Data Results & Data ([facility]) Vital Signs (Past 12 Hours) Vital Signs Temp Pulse Pulse Resp BP Pulse Ox 03/04/21 16:14 117 H 03/04/21 16:08 36.9 C 109 H 29 H 118/82 86 L 03/04/21 15:49 88 26 H 91 03/04/21 12:24 79 33 H 91 03/04/21 11:59 99 H 33 H 83 L 03/04/21 11:56 99 H 33 H 83 L 03/04/21 11:17 37.1 C 92 H 20 159/90 H 92 03/04/21 09:11 87 24 91 03/04/21 08:20 67 Laboratory Results Short CBC 03/03/21 03/04/21 Range/Units 21:26 06:23 WBC 4.98 5.31 (4.8-10.8) K/uL Hgb 15.8 16.0 (14.0-18.0) g/dL Hct 46.3 46.2 (42-52) % Plt Count 109 L 107 L (130-400) K/uL BMP 03/03/21 03/04/21 21:26 06:23 Sodium 135 L 138 Potassium 4.5 4.2 Chloride 104 107 Carbon Dioxide 23 23 BUN 20 H 17 Creatinine 0.95 0.69 Glucose 234 H 95 Calcium 9.1 8.8 Liver Function 03/03/21 Range/Units 21:26 Total Bilirubin 0.6 (0.2-1) mg/dl AST 47 H (15-37) U/L ALT 71 (12-78) U/L Alkaline Phosphatase 78 (45-117) U/L Albumin 2.6 L (3.4-5.0) gm/dl Urine 03/03/21 Range/Units 22:35 Urine Color Yellow Urine Appearance Clear (Clear) Urine pH 6.5 (4.5-7.5) Ur Specific Faxon 1.024 (1.000-1.030) Urine Protein Negative (Negative) Urine Glucose (UA) 1+ H (Negative)
[2021-03-04] MEDS: ARIPiprazole 15 MG TAB PO SCH (21:11)
[2021-03-04] MEDS: guaiFENesin 600 MG TABCR PO SCH (21:12)
[2021-03-04] MEDS: MIRTAZAPINE SOLTAB 15 MG PO SCH (21:12)
[2021-03-05] MEDS: ENOXAPARIN INJ 40 MG/0.4 ML SYR SQ SCH (06:46)
[2021-03-05] MEDS: BUDESONIDE 0.5 MG/2 ML VIAL (PULMICORT) NEB SCH ×2 (07:11→19:45)
[2021-03-05 08:15] LABS: C Reactive Protein 6.43 mg/dl (0-0.29); Calcium 9.1 mg/dl (8.5-10.1); Creatinine Clr Calc Pharmacy 144.1 ml/min; Est GFR (African American) 123.3 ml/min; Est GFR (Non-African American) 106.4 ml/min; Potassium 4.4 mmol/L (3.5-5.1)
--- NOTE | 2021-03-05 08:29 | XRay Report ---
XR chest 1V portable HISTORY: 50 years-old Male covid follow-up study in a patient with viral pneumonia COMPARISON: Chest radiograph 03/03/2021 TECHNIQUE: Portable AP view of the chest FINDINGS: Cardiac silhouette is upper limits of normal in size. Peripheral predominant bilateral airspace opaci ties have mildly worsened from comparison. No pneumothorax or large pleural effusion. No acute fractu re. IMPRESSION: Mild progression of the peripheral predominant bilateral airspace opacities compatible wi th viral pneumonia. ACT 112: Negative or not required by law. The above report was generated using voice recognition software. It may contain grammatical, syntax o r spelling errors. Electronically signed by: Keyon Lawton M.D. 03/05/2021 8:28 AM
[2021-03-05] MEDS ORDERED: INSULIN HUMAN NPH SC SCH (09:00)
[2021-03-05] MEDS: dexAMETHasone 10 MG in SYRINGE 0 ML IV SCH (09:04)
[2021-03-05] MEDS: INSULIN ASPART 100 UNITS/ML 3 ML PEN SC SCH ×4 (09:04→21:37)
[2021-03-05] MEDS: POTASSIUM CHLORIDE CRTAB 20 MEQ TABCR PO SCH (09:05)
[2021-03-05] MEDS: guaiFENesin 600 MG TABCR PO SCH ×2 (09:05→20:48)
[2021-03-05] MEDS: lisinopril 40 MG TAB PO SCH (09:05)
[2021-03-05] MEDS: BENZONATATE 100 MG CAPSULE PO SCH ×3 (09:28→20:50)
[2021-03-05] MEDS: INSULIN GLARGINE SOLOSTAR 100 UNITS/ML 3 ML PEN SC SCH ×2 (09:53→21:38)
--- NOTE | 2021-03-05 10:43 | Pulmonology Progress Note ---
Date of Service March 05, 2021 Assessment & Plan (1) Acute respiratory failure due to COVID-19: (2) Pneumonia due to COVID-19 virus: (3) Obesity: Plan: CTA chest 02/27/2021 personally reviewed:Diffuse patchy groundglass opacities appreciated bilaterally upper and lower lobes Cardiomegaly No mediastinal lymphadenopathy --Acute hypoxic respiratory failure Secondary to multilobar COVID-19 pneumonia COVID-19 PCR positive 02/27/2021 CRP 2.06 --> 6.43 Procalcitonin 0.23--> 0.09 Continue with O2 supplementation to keep oxygen saturation between 90-92%. Awake proning will be helpful Continue with incentive spirometry Continue with flutter valve. Recommend patient to be kept euvolemic to negative balance --Morbid obesity with possible LAKHWINDER BiPAP nightly and as needed shortness of breath --Thrombocytopenia Plan: Chest x-ray from today shows worsening bilateral peripheral alveolar opacities Prone the patient today Use CPAP/BiPAP Patient is still critical and if there is any worsening in his respiratory status he will get intubated. Patient is agreeable to intubation if need be Case discussed with RN and RT Please note the above document was generated using voice recognition software. It may contain grammatical, syntax or spelling errors.Any formal questions or concerns about the content, text or information contained within the body of this dictation should be directly addressed to the provider for clarification. Admission and Anticipated Discharge Date Admission Date: February 27, 2021 Subjective Patient seen and examined. No acute distress He was having his breakfast at that moment He states that he is feeling the same compared to yesterday He did not prone himself overnight and he did not use the CPAP Importance of using CPAP/BiPAP He denies any chest pain. He does complain of cough bringing up clear phlegm denies any hemoptysis No headache Review of Systems Review of Systems: All systems reviewed & are unremarkable except as noted in Subjective Physical Exam Physical Exam: Constitutional: No acute distress HEENT: EOMI, PERRLA Respiratory system: Decreased air entry bilaterally, no wheeze, no rhonchi, positive crackles bilaterally CVS: S1-S2 positive, no murmurs or gallops Abdomen: Soft, nontender, nondistended, positive bowel sounds x4, obese Extremities: +2 pulses bilaterally radialis/ dorsalis pedis, no cyanosis, no edema Neuro: Awake alert oriented x3 Psych: Normal mood and affect G/U: Positive Clark Skin: no rashes, warm and dry Lymphatic: no cervical or axillary lymphadenopathy Results & Data Results & Data ([facility]) Vital Signs (Past 12 Hours) Vital Signs Temp Pulse Resp BP Pulse Ox 03/05/21 07:59 36.9 C 80 18 119/87 89 L 03/05/21 07:13 64 20 88 L 03/05/21 03:43 37.1 C 76 21 126/83 90 03/05/21 03:33 74 19 90 03/04/21 23:55 81 22 89 L 03/04/21 06:23 03/05/21 07:33 PG Care Time/CCT Total # of Minutes Spent Total Time Spent with Patient: Total time spent is greater than 50% in coordination of care (as documented) at patient's floor/unit and/or counseling patient: Coding Level of Care Code 88379 Subseq Hosp Care Lvl 3 Diagnoses Acute respiratory failure due to COVID-19 U07.1; J96.00 Pneumonia due to COVID-19 virus U07.1; J12.82 Obesity E66.9
[2021-03-05] MEDS: FUROSEMIDE 40 MG/4 ML VIAL IV SCH (12:12)
--- NOTE | 2021-03-05 12:19 | Hospitalist Progress Note ---
Date of Service March 05, 2021 Assessment & Plan (1) Acute respiratory failure due to COVID-19: Plan: Progressed infiltrates on most recent CXR. Now requiring BIPAP. Cont higher dose dexamethasone. Not a candidate for baricitinib at this time. Lasix as needed. BIPAP for now. Titrate per pulmonology and per respiratory therapy based on needs. (2) Pneumonia due to COVID-19 virus: Plan: Cont plan as above. (3) DMII (diabetes mellitus, type 2): Plan: HbA1C 11 Poorly controlled Continue present insulin Glycemic pharmacist consulted with overall glycemic picture well controlled. (4) HTN (hypertension): Plan: Blood pressure stable today Continue current medication (5) Asthma: Plan: chronic, stable, no wheezing. (6) Depression: Plan: Continue Abilify, mirtazapine per home regimen. (7) DVT prophylaxis: Plan: Lovenox SQ Full code Dispo-PCU, notably patient is incarcerated. [facility] and Anticipated Discharge Date Admission Date: February 27, 2021 Subjective 50 yo incarcerated diabetic man presents with hypoxia and respiratory symptoms 2/2 covid pneumonia Oxygen needs have progressed to BIPAP which he is currently on Initially he was saying he didn't think it was working but when I exlpained his parameters, he felt ok Proned for 6 hours last night per primary nurse. Guards also helpful wanting to prompt him to continue to change positions. Denies any pain, nausea or other issues. Afebrile. Review of Systems Review of Systems: All systems were reviewed and negative except as above. Physical Exam Physical Exam: CONSTITUTIONAL: WNWD, vitals as above, generally ill- appearing, NAD, BIPAP in place. EYES: normal conjunctivae, no scleral icterus ENT: external ear and nose normal, MMM NECK: trachea midline RESPIRATORY: +crackles on the right side (patient is lying in the right lateral decubitus position), no wheezing, normal respiratory effort. BIPAP in place. CARDIOVASCULAR: regular rate and rhythm, S1 and 2 heard without murmurs, gallops or rubs, no JVD, no peripheral edema CHEST: inspection of chest was normal GASTROINTESTINAL: soft, nontender, ND, no guarding MUSCULOSKELETAL: strength 5/5 throughout, head is normocephalic and atraumatic SKIN: warm and dry, extensive tattoos NEUROLOGIC: CN 2-12 grossly intact, normal cognition, normal speech, no tremor PSYCHIATRIC: alert cooperative and answering questions appropriately. Results & Data Results & Data ([facility]) Vital Signs (Past 12 Hours) Vital Signs Temp Pulse Pulse Resp BP Pulse Ox 03/05/21 12:04 91 H 22 92 03/05/21 11:46 36.8 C 74 20 99/65 L 94 03/05/21 07:59 36.9 C 80 18 119/87 89 L 03/05/21 07:13 64 20 88 L 03/05/21 07:00 63 03/05/21 03:43 37.1 C 76 21 126/83 90 03/05/21 03:33 74 19 90 Laboratory Results BMP 03/05/21 07:33 Sodium 135 L Potassium 4.4 Chloride 104 Carbon Dioxide 22 BUN 23 H Creatinine 0.76 Glucose 167 H Calcium 9.1 Diagnostic Findings Chest X-Ray 03/05/21 07:00 XR chest 1V portable HISTORY: 50 years-old Male covid follow-up study in a patient with viral pneumonia COMPARISON: Chest radiograph 03/03/2021 TECHNIQUE: Portable AP view of the chest FINDINGS: Cardiac silhouette is upper limits of normal in size. Peripheral predominant bilateral airspace opacities have mildly worsened from comparison. No pneumothorax or large pleural effusion. No acute fracture. IMPRESSION: Mild progression of the peripheral predominant bilateral airspace opacities compatible with viral pneumonia. ACT 112: Negative or not required by law. The above report was generated using voice recognition software. It may contain grammatical, syntax or spelling errors. Electronically signed by: Keyon Lawton M.D. 03/05/2021 8:28 AM Medications Administered Current Inpatient Medications Acetaminophen (Acetaminophen 325 Mg Tab) 650 mg PO Q4H PRN PRN Reason: Pain or Fever Stop: 03/29/21 15:52 Last Admin: 03/03/21 20:48 Dose: 650 mg Documented by: Aripiprazole (Aripiprazole 15 Mg Tab) 15 mg PO HS [facility] Stop: 03/30/21 20:59 Last Admin: 03/04/21 21:11 Dose: 15 mg Documented by: Benzonatate (Benzonatate 100 Mg Capsule) 100 mg PO TID PITO Stop: 03/31/21 20:59 Last Admin: 03/05/21 09:28 Dose: 100 mg Documented by: Budesonide (Budesonide 0.5 Mg/2 Ml Vial (Pulmicort)) 0.5 mg NEB BIDR PITO Stop: 04/03/21 09:44 Last Admin: 03/05/21 07:11 Dose: 0.5 mg Documented by: Dextrose (Dextrose 50% 50 Ml Syringe) 25 - 50 ml IV UD PRN; Protocol PRN Reason: Hypoglycemia Protocol Stop: 03/29/21 15:52 Enoxaparin Sodium (Enoxaparin Inj 60 Mg/0.6 Ml Syr) 60 mg SQ Q12 PITO Stop: 04/04/21 20:59 Furosemide (Furosemide 40 Mg/4 Ml Vial) 40 mg IV Q24H PITO Stop: 04/04/21 09:59 Last Admin: 03/05/21 12:12 Dose: 40 mg Documented by: Glucagon (Glucagon For Inj 1 Mg Vial) 1 mg SQ UD PRN; Protocol PRN Reason: Hypoglycemia Protocol Stop: 03/29/21 15:52 Glucose (Glucose 10 Tabs/Tube) 4 - 8 tabs PO UD PRN; Protocol PRN Reason: Hypoglycemia Protocol Stop: 03/29/21 15:52 Glucose (Glucose 40% Gel 15 Gm Tube) 15 - 30 gm PO UD PRN; Protocol PRN Reason: Hypoglycemia Protocol Stop: 03/29/21 15:52 Guaifenesin (Guaifenesin 600 Mg Tabcr) 600 mg PO Q12 PITO Stop: 04/03/21 20:59 Last Admin: 03/05/21 09:05 Dose: 600 mg Documented by: Guaifenesin/Codeine Phosphate (Guaifenesin/Codeine 200mg/20mg 10ml Udc) 10 ml PO Q6H PRN PRN Reason: Cough Stop: 03/29/21 16:25 Last Admin: 03/03/21 12:41 Dose: 10 ml Documented by: Dexamethasone 10 mg/ Syringe 2.5 mls @ 1 mls/min IV Q24H PITO Stop: 04/04/21 08:59 Last Admin: 03/05/21 09:04 Dose: 1 mls/min Documented by: Insulin Aspart (Insulin Aspart 100 Units/Ml 3 Ml Pen) 0 units SC ACHS PITO Stop: 03/30/21 11:29 Last Admin: 03/05/21 09:04 Dose: 23 units Documented by: Insulin Glargine (Insulin Glargine Solostar 100 Units/Ml 3 Ml Pen) 0 units SC BID [facility]; Protocol Stop: 04/01/21 20:59 Last Admin: 03/05/21 09:53 Dose: 30 units Documented by: Insulin Human NPH (Insulin Human Nph) 55 units SC QAM [facility] Stop: 04/04/21 08:59 Last Admin: 03/05/21 09:04 Dose: 55 units Documented by: Lisinopril (Lisinopril 40 Mg Tab) 40 mg PO DAILY [facility] Stop: 03/31/21 08:59 Last Admin: 03/05/21 09:05 Dose: 40 mg Documented by: Menthol (Cough Drop (Sugar Free) Levon 24 Levon/1 Box) 1 levon BUCCAL PRN PRN PRN Reason: Sore Throat Stop: 04/02/21 05:27 Last Admin: 03/03/21 06:31 Dose: 1 levon Documented by: Mirtazapine (Mirtazapine Soltab 15 Mg) 45 mg PO HS [facility] Stop: 03/30/21 20:59 Last Admin: 03/04/21 21:12 Dose: 45 mg Documented by: Miscellaneous (Carbohydrates For Hypoglycemia ) 15 - 30 gm PO UD PRN PRN Reason: Hypoglycemia Protocol Stop: 03/29/21 15:52 Miscellaneous Information (Pharmacy Glycemic Mgmt Consult) 1 ea N/A UD PRN PRN Reason: Consult Stop: 03/30/21 08:16 Ondansetron HCl (Ondansetron Inj 2 Mg/Ml 2 Ml Vial) 4 mg IV Q6H PRN PRN Reason: Nausea Stop: 03/29/21 15:52 Polyethylene Glycol (Polyethylene (Miralax) 17 Gm Pack) 17 gm PO DAILY PRN PRN Reason: Constipation Stop: 03/29/21 15:52 Last Admin: 03/02/21 18:44 Dose: 17 gm Documented by: Potassium Chloride (Potassium Chloride Crtab 20 Meq Tabcr) 20 meq PO QAM [facility] Stop: 04/01/21 08:59 Last Admin: 03/05/21 09:05 Dose: 20 meq Documented by: Tramadol HCl (Tramadol Hcl 50 Mg Tablet) 25 - 50 mg PO Q4H PRN PRN Reason: Pain Stop: 04/02/21 20:37 Last Admin: 03/04/21 15:28 Dose: 50 mg Documented by:
--- NOTE | 2021-03-05 13:53 | Pharmacy Report ---
Pharmacy Glycemic Short Note 2 - Date of Service March 05, 2021 - Glycemic Short BSG Results (Last 24 hours): 03/04/21 03/04/21 03/05/21 16:50 20:26 07:33 Glucose 167 H POC Glucose 217 H 248 H 03/05/21 03/05/21 07:58 12:14 Glucose POC Glucose 157 H 269 H OUTPATIENT ANTIDIABETIC REGIMEN: * uncertain * A1c = 11.1% 02/28/21 ASSESSMENT: 03/05: * Fasting blood sugar at goal, continue Lantus * BGSs still rising throughout the day with increase in steroids, tighten CF/CR & increase NPH 03/04: * Dexamethasone increased to 10mg daily tomorrow, additional 4mg given now, increase NPH * BGSs still rising throughout the day, tighten CF/CR 03/03: * Continues on dex 6mg daily. Type 2 DM diet ordered * BSGs improved since yesterday. NPH increased to 45 units (~0.4units/kg) today given high prandial BSGs yesterday. Novolog correction tightened to improve prandial BSGs as well. * No change to Lantus regimen today. 03/02: * Insulin infusion titrated off this morning, continues with dexamethasone 6 mg IV daily * Increased NPH for dexamethasone coverage to ~0.35 mg/kg, lunch BSG elevated, will plan on increasing tomorrow * Tightened carb ratio 03/01 * Insulin infusion continues to infuse, was down to 3 units/hr but increased at lunch- patient restarted diet, dextrose of was discontinued * Will give 1x dose of NPH now to help with steroid coverage and move to AM dosing with dex tomorrow. Will set scale for PM lantus to help transition off of insulin infusion 02/28 * Type 2 diabetic admitted to Telemetry for COVID19 pneumonia with hypoxia * Patient was severely hyperglycemic (without AG acidosis) on admission. Severe hyperglycemia persists despite use of weight-based SQ insulin doses at "severe" stress level. * Will initiate IV insulin drip with current basal insulin order to help quickly and safely bring BSGs to goal. Continuing current basal dose will allow for smoother transition off insulin drip once true needs are better known with current stressors. * Novolog SQ will be given with meals to prevent unnecessary upwards titrations in IV insulin infusion rates PLAN FOR INPATIENT GLYCEMIC CONTROL: * Basal insulin * Lantus 30-35 units BID * NPH 60 units SQ daily with dexamethasone 10mg IV daily * Bolus insulin * NovoLog SQ ACHS * Correction factor: 8 mg/dl/unit * Nutritional / Prandial insulin per carb ratio of 1 unit per 1.5 grams CHO consumed PLAN FOR DISCHARGE: * to be determined
[2021-03-05] MEDS: MIRTAZAPINE SOLTAB 15 MG PO SCH (20:49)
[2021-03-05] MEDS: ARIPiprazole 15 MG TAB PO SCH (20:49)
[2021-03-05] MEDS: ENOXAPARIN INJ 60 MG/0.6 ML SYR SQ SCH (20:50)
[2021-03-06 07:10] LABS: Hematocrit (blood only) 49.2 % (42-52); Hemoglobin 16.9 g/dL (14.0-18.0); Mean Corpuscular Hemoglobin 29.7 pg (25-34); Mean Corpuscular Hgb Conc 34.3 g/dL (32-36); Mean Corpuscular Volume 86.5 fL (80-100); Mean Platelet Volume 11.1 fL (7.4-10.4); Platelet Count 135 K/uL (130-400); RDW Coefficient of Variation 13.8 % (11.5-14.5); RDW Standard Deviation 43.8 fL (36.4-46.3); Red Blood Count 5.69 M/uL (4.7-6.1); White Blood Count 7.95 K/uL (4.8-10.8)
[2021-03-06 07:44] LABS: BUN Creatinine Ratio 35.3 (10-20); C Reactive Protein 3.77 mg/dl (0-0.29); Calcium 9.4 mg/dl (8.5-10.1); Creatinine Clr Calc Pharmacy 142.3 ml/min; Est GFR (African American) 122.6 ml/min; Est GFR (Non-African American) 105.8 ml/min; Potassium 4.3 mmol/L (3.5-5.1)
[2021-03-06] MEDS: BUDESONIDE 0.5 MG/2 ML VIAL (PULMICORT) NEB SCH ×2 (07:48→20:25)
[2021-03-06] MEDS: ENOXAPARIN INJ 60 MG/0.6 ML SYR SQ SCH ×2 (09:15→20:30)
[2021-03-06] MEDS: dexAMETHasone 10 MG in SYRINGE 0 ML IV SCH (09:16)
[2021-03-06] MEDS: lisinopril 40 MG TAB PO SCH (09:18)
[2021-03-06] MEDS: FUROSEMIDE 40 MG/4 ML VIAL IV SCH (09:18)
[2021-03-06] MEDS: BENZONATATE 100 MG CAPSULE PO SCH ×3 (09:18→20:31)
[2021-03-06] MEDS: INSULIN ASPART 100 UNITS/ML 3 ML PEN SC SCH ×4 (09:20→20:12)
[2021-03-06] MEDS: INSULIN HUMAN NPH SC SCH (09:20)
[2021-03-06] MEDS: guaiFENesin 600 MG TABCR PO SCH ×2 (09:20→20:31)
[2021-03-06] MEDS: INSULIN GLARGINE SOLOSTAR 100 UNITS/ML 3 ML PEN SC SCH ×2 (09:20→20:13)
[2021-03-06] MEDS: POTASSIUM CHLORIDE CRTAB 20 MEQ TABCR PO SCH (09:20)
[2021-03-06] MEDS: traMADol HCL 50 MG TABLET PO PRN (11:04)
[2021-03-06] MEDS: POLYETHYLENE (MIRALAX) 17 GM PACK PO PRN (11:04)
--- NOTE | 2021-03-06 14:57 | Pulmonology Progress Note ---
Date of Service March 06, 2021 Assessment & Plan (1) Acute respiratory failure due to COVID-19: (2) Pneumonia due to COVID-19 virus: (3) Obesity: Plan: Impression: 50-year-old inmate hospitalized since 02/27 with breakthrough Covid. He is escalated to high flow oxygen. Recommendations: 1. Acute hypoxemic respiratory failure: Continue oxygen titrated to try and keep saturations at or above 88%. If the patient fails high flow oxygen, we can transition to BiPAP and potentially intubation if needed. Patient's BMI and duration of illness exclude him from ECMO 2. Covid pneumonitis: COVID-19 PCR positive 02/27/2021, CRP 2.06 --> 6.43, Procalcitonin 0.23--> 0.09. Patient is outside the window for additional immunosuppressive therapy. Continue dexamethasone at 6 mg a day. He does not have a lot of groundglass opacities. Prognosis guarded. 40 minutes critical care time evaluating managing patient Admission and Anticipated Discharge Date Admission Date: February 27, 2021 Subjective Patient seen and examined. He states his breathing is little better. Is on high flow. He is currently eating lunch. He is not appear in any distress Review of Systems Review of Systems: All systems reviewed & are unremarkable except as noted in Subjective Physical Exam Physical Exam: Constitutional: No acute distress HEENT: EOMI, PERRLA Respiratory system: Decreased air entry bilaterally, no wheeze, no rhonchi, positive crackles bilaterally CVS: S1-S2 positive, no murmurs or gallops Abdomen: Soft, nontender, nondistended, positive bowel sounds x4, obese Extremities: +2 pulses bilaterally radialis/ dorsalis pedis, no cyanosis, no edema Neuro: Awake alert oriented x3 Psych: Normal mood and affect G/U: Positive Clark Skin: no rashes, warm and dry Lymphatic: no cervical or axillary lymphadenopathy Results & Data Results & Data ([facility]) Vital Signs (Past 12 Hours) Vital Signs Temp Pulse Pulse Resp BP Pulse Ox 03/06/21 12:05 36.6 C 108 H 22 105/62 91 03/06/21 11:14 20 91 03/06/21 07:49 66 20 91 03/06/21 07:17 36.5 C 67 22 112/84 91 03/06/21 04:34 36.6 C 94 H 16 111/69 94 03/06/21 03:36 95 H 18 90 Laboratory Results 03/06/21 06:53 03/06/21 06:53 Diagnostic Findings No new imaging PG Care Time/CCT Total # of Minutes Spent Total Time Spent with Patient: Total time spent is greater than 50% in coordination of care (as documented) at patient's floor/unit and/or counseling patient: Coding Level of Care Code Critical Care 1st 30-74 mins Diagnoses Acute respiratory failure due to COVID-19 U07.1; J96.00 Pneumonia due to COVID-19 virus U07.1; J12.82 Obesity E66.9
--- NOTE | 2021-03-06 15:21 | Hospitalist Progress Note ---
Date of Service March 06, 2021 Assessment & Plan (1) Acute respiratory failure due to COVID-19: Plan: Progressed infiltrates on most recent CXR. Now requiring BIPAP. Cont higher dose dexamethasone. Not a candidate for baricitinib at this time or any other immunosuppressive therapy. Titrate per pulmonology and per respiratory therapy based on needs. Still requiring high flow oxygen to maintain saturation with BiPAP as needed Appreciate pulmonary input and recommendation Constipation Complaints of abdominal pain over right upper quadrant without any nausea and or vomiting CT scan of the abdomen did not show any cholecystitis but has cholelithiasis Has been getting laxatives (2) Pneumonia due to COVID-19 virus: Plan: Cont plan as above. (3) DMII (diabetes mellitus, type 2): Plan: HbA1C 11 Poorly controlled Continue present insulin Glycemic pharmacist consulted with overall glycemic picture well controlled. (4) HTN (hypertension): Plan: Blood pressure stable today Continue current medication (5) Asthma: Plan: chronic, stable, no wheezing. Likely complicating Covid pneumonia (6) Depression: Plan: Continue Abilify, mirtazapine per home regimen. (7) DVT prophylaxis: Plan: Lovenox SQ Full code Dispo-PCU, notably patient is incarcerated. Admission and Anticipated Discharge Date Admission Date: February 27, 2021 Subjective 03/06/2021 The patient was seen and examined in telemetry unit and in the Covid room He complains to have some abdominal pain without any distention, nausea and/or vomiting He has not moved his bowel as of today Does not have any significant respiratory symptoms but has been requiring high flow oxygen to maintain saturation Review of Systems Review of Systems: All systems reviewed and are unremarkable except as noted below Respiratory: Mild to no respiratory symptoms at rest Gastrointestinal: Mild abdominal pain without distention, nausea and or vomiting Physical Exam Physical Exam: Lying in bed comfortably Constitutional: well developed, well nourished, + ill appearing and + morbidly obese Eyes: PERRL, conjunctivae normal, anicteric sclerae ENMT: external ear and nose normal, oropharynx normal Neck: trachea midline, no thyromegaly Respiratory: + cough; no respiratory distress and no labored breathing A uscultation: + diminished lung sounds, + crackles (Minimal crackles at the bases) and + wheezes Cardiovascular: Rate/Rhythm: regular rate, regular rhythm and + tachycardic Heart Sounds: normal S1 and normal S2; no murmur Extremities: + edema (Trace edema bilaterally) Gastrointestinal (Abdomen): Inspection/Auscultation: normal bowel sounds; abdomen not distended Percussion/Palpation: abdomen soft; abdomen nontender Musculoskeletal: No acute arthritis in any joint Neurologic: Alert, awake and oriented x3. No focal sensory or no motor deficit appreciated Psychiatric: A+Ox3, euthymic affect Lymphatic: no cervical or axillary lymphadenopathy Results & Data Results & Data ([facility]) Vital Signs (Past 12 Hours) Vital Signs Temp Pulse Pulse Resp BP Pulse Ox 03/06/21 12:05 36.6 C 108 H 22 105/62 91 03/06/21 11:14 20 91 03/06/21 07:49 66 20 91 03/06/21 07:17 36.5 C 67 22 112/84 91 03/06/21 04:34 36.6 C 94 H 16 111/69 94 03/06/21 03:36 95 H 18 90 Laboratory Results Short CBC 03/06/21 Range/Units 06:53 WBC 7.95 (4.8-10.8) K/uL Hgb 16.9 (14.0-18.0) g/dL Hct 49.2 (42-52) % Plt Count 135 (130-400) K/uL BMP 03/06/21 06:53 Sodium 138 Potassium 4.3 Chloride 107 Carbon Dioxide 27 BUN 27 H Creatinine 0.77 Glucose 90 Calcium 9.4 Medications Administered Current Inpatient Medications Acetaminophen (Acetaminophen 325 Mg Tab) 650 mg PO Q4H PRN PRN Reason: Pain or Fever Stop: 03/29/21 15:52 Last Admin: 03/03/21 20:48 Dose: 650 mg Documented by: Aripiprazole (Aripiprazole 15 Mg Tab) 15 mg PO HS PITO Stop: 03/30/21 20:59 Last Admin: 03/05/21 20:49 Dose: 15 mg Documented by: Benzonatate (Benzonatate 100 Mg Capsule) 100 mg PO TID PITO Stop: 03/31/21 20:59 Last Admin: 03/06/21 13:03 Dose: 100 mg Documented by: Budesonide (Budesonide 0.5 Mg/2 Ml Vial (Pulmicort)) 0.5 mg NEB BIDR PITO Stop: 04/03/21 09:44 Last Admin: 03/06/21 07:48 Dose: 0.5 mg Documented by: Dextrose (Dextrose 50% 50 Ml Syringe) 25 - 50 ml IV UD PRN; Protocol PRN Reason: Hypoglycemia Protocol Stop: 03/29/21 15:52 Enoxaparin Sodium (Enoxaparin Inj 60 Mg/0.6 Ml Syr) 60 mg SQ Q12 PITO Stop: 04/04/21 20:59 Last Admin: 03/06/21 09:15 Dose: 60 mg Documented by: Furosemide (Furosemide 40 Mg/4 Ml Vial) 40 mg IV Q24H PITO Stop: 04/04/21 09:59 Last Admin: 03/06/21 09:18 Dose: 40 mg Documented by: Glucagon (Glucagon For Inj 1 Mg Vial) 1 mg SQ UD PRN; Protocol PRN Reason: Hypoglycemia Protocol Stop: 03/29/21 15:52 Glucose (Glucose 10 Tabs/Tube) 4 - 8 tabs PO UD PRN; Protocol PRN Reason: Hypoglycemia Protocol Stop: 03/29/21 15:52 Glucose (Glucose 40% Gel 15 Gm Tube) 15 - 30 gm PO UD PRN; Protocol PRN Reason: Hypoglycemia Protocol Stop: 03/29/21 15:52 Guaifenesin (Guaifenesin 600 Mg Tabcr) 600 mg PO Q12 PITO Stop: 04/03/21 20:59 Last Admin: 03/06/21 09:20 Dose: 600 mg Documented by: Guaifenesin/Codeine Phosphate (Guaifenesin/Codeine 200mg/20mg 10ml Udc) 10 ml PO Q6H PRN PRN Reason: Cough Stop: 03/29/21 16:25 Last Admin: 03/03/21 12:41 Dose: 10 ml Documented by: Dexamethasone 10 mg/ Syringe 2.5 mls @ 1 mls/min IV Q24H PITO Stop: 04/04/21 08:59 Last Admin: 03/06/21 09:16 Dose: 1 mls/min Documented by: Insulin Aspart (Insulin Aspart 100 Units/Ml 3 Ml Pen) 0 units SC ACHS [facility] Stop: 03/30/21 11:29 Last Admin: 03/06/21 13:09 Dose: 37 units Documented by: Insulin Glargine (Insulin Glargine Solostar 100 Units/Ml 3 Ml Pen) 0 units SC BID PITO; Protocol Stop: 12/18/21 20:59 Last Admin: 03/06/21 09:20 Dose: 30 units Documented by: Insulin Human NPH (Insulin Human Nph) 60 units SC QAM [facility] Stop: 04/05/21 08:59 Last Admin: 03/06/21 09:20 Dose: 60 units Documented by: Lisinopril (Lisinopril 40 Mg Tab) 40 mg PO DAILY [facility] Stop: 03/31/21 08:59 Last Admin: 03/06/21 09:18 Dose: 40 mg Documented by: Menthol (Cough Drop (Sugar Free) Levon 24 Levon/1 Box) 1 levon BUCCAL PRN PRN PRN Reason: Sore Throat Stop: 04/02/21 05:27 Last Admin: 03/03/21 06:31 Dose: 1 levon Documented by: Mirtazapine (Mirtazapine Soltab 15 Mg) 45 mg PO HS [facility] Stop: 03/30/21 20:59 Last Admin: 03/05/21 20:49 Dose: 45 mg Documented by: Miscellaneous (Carbohydrates For Hypoglycemia ) 15 - 30 gm PO UD PRN PRN Reason: Hypoglycemia Protocol Stop: 03/29/21 15:52 Miscellaneous Information (Pharmacy Glycemic Mgmt Consult) 1 ea N/A UD PRN PRN Reason: Consult Stop: 03/30/21 08:16 Ondansetron HCl (Ondansetron Inj 2 Mg/Ml 2 Ml Vial) 4 mg IV Q6H PRN PRN Reason: Nausea Stop: 03/29/21 15:52 Polyethylene Glycol (Polyethylene (Miralax) 17 Gm Pack) 17 gm PO DAILY PRN PRN Reason: Constipation Stop: 03/29/21 15:52 Last Admin: 03/06/21 11:04 Dose: 17 gm Documented by: Potassium Chloride (Potassium Chloride Crtab 20 Meq Tabcr) 20 meq PO QAM [facility] Stop: 04/01/21 08:59 Last Admin: 03/06/21 09:20 Dose: 20 meq Documented by: Tramadol HCl (Tramadol Hcl 50 Mg Tablet) 25 - 50 mg PO Q4H PRN PRN Reason: Pain Stop: 04/02/21 20:37 Last Admin: 03/06/21 11:04 Dose: 50 mg Documented by:
[2021-03-06] MEDS: MIRTAZAPINE SOLTAB 15 MG PO SCH (20:31)
[2021-03-06] MEDS: ARIPiprazole 15 MG TAB PO SCH (20:31)
[2021-03-07] MEDS ORDERED: ALBUT/IPRATROP 3MG/0.5MG NEB 3 ML VIAL NEB STA (02:07)
[2021-03-07] MEDS: dexAMETHasone 10 MG in SYRINGE 0 ML IV SCH (02:44)
[2021-03-07 03:49] LABS: Eosinophils # (auto) 0.02 K/uL (0-0.5); Eosinophils % (auto) 0.2 %; Hematocrit (blood only) 50.4 % (42-52); Hemoglobin 17.6 g/dL (14.0-18.0); Immature Granulocytes # (auto) 0.03 K/uL (0.00-0.02); Immature Granulocytes % (auto) 0.3 %; Lymphocytes # (auto) 1.31 K/uL (1.2-3.4); Lymphocytes % (auto) 14.2 %; Mean Corpuscular Hemoglobin 30.1 pg (25-34); Mean Corpuscular Hgb Conc 34.9 g/dL (32-36); Mean Corpuscular Volume 86.3 fL (80-100); Mean Platelet Volume 11.4 fL (7.4-10.4); Monocytes # (auto) 0.29 K/uL (0.11-0.59); Monocytes % (auto) 3.1 %; Neutrophils # (auto) 7.57 K/uL (1.4-6.5); Neutrophils % (auto) 82.2 %; Platelet Count 140 K/uL (130-400); RDW Coefficient of Variation 13.8 % (11.5-14.5); RDW Standard Deviation 43.3 fL (36.4-46.3); Red Blood Count 5.84 M/uL (4.7-6.1); White Blood Count 9.22 K/uL (4.8-10.8)
[2021-03-07 03:51] LABS: Base Excess ABG 2.5 mEq/L (-9-1.8); HCO3 ABG 26 mmol/L (19-24); Oxygen Saturation ABG 95.4 % (90-95); PCO2 ABG 38 mmHg (35-46); PO2 ABG 71 mmHg (80-95); pH ABG 7.46 (7.35-7.45)
[2021-03-07 03:53] LABS: Allen Test POS (Pos)
[2021-03-07 04:01] LABS: Partial Thromboplastin Time 27.6 Seconds (21.0-31.0)
[2021-03-07 04:15] LABS: Albumin Level 2.8 gm/dl (3.4-5.0); BUN Creatinine Ratio 36.8 (10-20); Calcium 9.2 mg/dl (8.5-10.1); Creatinine Clr Calc Pharmacy 135.3 ml/min; Est GFR (African American) 120.1 ml/min; Est GFR (Non-African American) 103.6 ml/min; Magnesium 2.3 mg/dl (1.8-2.4); Potassium 4.2 mmol/L (3.5-5.1)
[2021-03-07 04:18] LABS: Albumin Globulin Ratio 0.5 (0.9-2); Bilirubin,Total 1.2 mg/dl (0.2-1); C Reactive Protein 3.09 mg/dl (0-0.29); Globulin 5.1 gm/dl (2.5-4.0); Total Protein 7.9 gm/dl (6.4-8.2)
[2021-03-07 05:42] LABS: iSTAT Allen Test Pass; iSTAT Arterial Blood Gas HCO3 26 meg/L (19-24); iSTAT Arterial Blood Gas pCO2 39 mmHg (35-46); iSTAT Arterial Blood Gas pH 7.43 (7.35-7.45); iSTAT Arterial Blood Gas pO2 69 mmHg (80-95); iSTAT Carbon Dioxide 27 mmol/L (24-31); iSTAT FiO2 100 %; iSTAT Site R Radial
[2021-03-07] MEDS: BUDESONIDE 0.5 MG/2 ML VIAL (PULMICORT) NEB SCH ×2 (07:32→21:39)
--- NOTE | 2021-03-07 07:36 | XRay Report ---
XR chest 1V portable HISTORY: Hypoxia. COMPARISON: Chest 03/05/2021. FINDINGS: There are patchy peripheral airspace opacities which are similar to the prior study. The he art is normal in size. Suspect a trace right pleural effusion. No pneumothorax. There are low lung vo lumes. IMPRESSION: No change in the patchy peripheral airspace opacities likely representing a viral pneumonia. ACT 112: Negative or not required by law. Electronically signed by: Puneet Pratt M.D. 03/07/2021 7:35 AM
--- NOTE | 2021-03-07 08:02 | Pulmonology Progress Note ---
Date of Service March 07, 2021 Assessment & Plan (1) Acute respiratory failure due to COVID-19: (2) Pneumonia due to COVID-19 virus: (3) Obesity: Plan: Impression: 50-year-old inmate hospitalized since 02/27 with breakthrough Covid. He was previously escalated to high flow oxygen and is currently requiring CPAP at 12 cm of water. Patient is tolerating the CPAP well. He is alternating between belly and side sleeping. Recommendations: 1. Acute hypoxemic respiratory failure: Patient was progressed to high flow oxygen yesterday. Overnight the patient continued to struggle with oxygenation and was switched over to CPAP at 12 cm water. He is tolerating this well. The next stage would be endotracheal intubation with mechanical ventilation. Patient speaks Setsw[place] is his primary language. He seems to understand what we are discussing. We should have clinical trial educator on standby should the patient escalate to the need for endotracheal intubation electively. Chest x-ray today shows no significant change from yesterday and demonstrates extensive patchy bilateral infiltrates consistent with viral pneumonia. The patient currently is not demonstrating any acute distress. I did speak with the patient's nurse who will have the translation iPad available. Patient is excluded for consideration from ECMO as he is outside the window to qualify and has a BMI greater than 35. Continue supportive care. 2. Covid pneumonitis: COVID-19 PCR positive 02/27/2021, CRP 2.06 --> 6.43, Procalcitonin 0.23--> 0.09. Patient is outside the window for additional immunosuppressive therapy. Recommendation for dexamethasone is6 mg a day. He appears to been increased to 10 mg IV daily. 3. DVT prophylaxis: Continue enoxaparin. Patient currently on 60 mg sub cutaneously every 12 hours. Thank you for including us in the care of this patient. Please refer to Dr. San's addendum for further recommendations. Admission and Anticipated Discharge Date Admission Date: February 27, 2021 Supervising Physician Co-Signing Physician Notes EMR reviewed. Discussed with critical care ARETHA. Agree with assessment plan as noted. It appears his dexamethasone was increased by the nocturnal hospitalist to 10 mg a day. There is no real data for this dosing regiment. The late-phase ARDS dosing would be 20 mg a day for 5 days followed by 10 mg a day for 5 days. Hospitalist appear to be managing this so will defer additional steroids to them. Patient is at risk for clinical deterioration and may require intubation. Subjective Attending: Dr. San Patient seen and examined in room 207. He is currently on CPAP at 12 cm of water. He is saturating in the low 90s at this time. He does not complain of any acute shortness of breath. He states he is tolerating the mask fairly well. He denies any fever or chills. He has no back pain. He has no other acute complaints. Review of Systems Review of Systems: All systems reviewed & are unremarkable except as noted in Subjective Physical Exam Physical Exam: GENERAL : No acute distress. EYES: No icterus, gaze conjugate NOSE: No evidence of epistaxis MOUTH: No lesions or candidiasis. Mucosa moist. CPAP mask in place. No apparent leak. NECK: Supple LUNGS: Bibasilar rales. No appreciation of profound bronchospasm. HEART: Regular, rate controlled in the 80s ABDOMEN: Soft, NT, ND, BS Present EXTREMITIES: No LE edema, pedal pulses intact NEURO: A&OX3 Results & Data Results & Data ([facility]) Vital Signs (Past 12 Hours) Vital Signs Temp Pulse Pulse Pulse Resp BP Pulse Ox 03/07/21 07:32 79 18 92 03/07/21 07:24 37.0 C 83 20 134/85 93 03/07/21 05:21 107 H 03/07/21 03:15 89 14 90 03/07/21 02:49 36.8 C 79 18 111/74 90 03/07/21 02:25 83 12 90 03/06/21 23:17 36.9 C 69 18 112/65 90 03/06/21 23:04 75 18 92 03/06/21 20:25 78 16 90 Laboratory Results 03/07/21 03:29 03/07/21 03:29 02/27/21 02/28/21 02/28/21 12:15 16:12 20:12 ABG pH ABG pCO2 ABG pO2 ABG HCO3 ABG O2 Saturation ABG Base Excess VBG pH 7.44 H 7.46 H 7.47 H VBG pCO2 37 L VBG pO2 58 VBG HCO3 24 VBG O2 Saturation 90.8 VBG Base Excess 0.4 02/28/21 03/01/21 03/01/21 23:47 04:07 07:37 ABG pH ABG pCO2 ABG pO2 ABG HCO3 ABG O2 Saturation ABG Base Excess VBG pH 7.44 H 7.42 H Cancelled VBG pCO2 VBG pO2 VBG HCO3 VBG O2 Saturation VBG Base Excess 03/01/21 03/01/21 03/05/21 08:40 11: 07:33 ABG pH ABG pCO2 ABG pO2 ABG HCO3 ABG O2 Saturation ABG Base Excess VBG pH 7.44 H 7.43 H 7.46 H VBG pCO2 VBG pO2 VBG HCO3 VBG O2 Saturation VBG Base Excess 03/06/21 03/07/21 06:53 03:29 ABG pH 7.46 H ABG pCO2 38 ABG pO2 71 L ABG HCO3 26 H ABG O2 Saturation 95.4 H ABG Base Excess 2.5 H VBG pH 7.47 H VBG pCO2 VBG pO2 VBG HCO3 VBG O2 Saturation VBG Base Excess COVID-19 Results 02/27/21 10:37 SARS-CoV-2 (PCR) POSITIVE A* Diagnostic Findings Chest X-Ray 03/07/21 02:07 XR chest 1V portable HISTORY: Hypoxia. COMPARISON: Chest 03/05/2021. FINDINGS: There are patchy peripheral airspace opacities which are similar to the prior study. The heart is normal in size. Suspect a trace right pleural effusion. No pneumothorax. There are low lung volumes. IMPRESSION: No change in the patchy peripheral airspace opacities likely representing a viral pneumonia. ACT 112: Negative or not required by law. Electronically signed by: Puneet Pratt M.D. 03/07/2021 7:35 AM PG Care Time/CCT Total # of Minutes Spent Total Time Spent with Patient: Total time spent is greater than 50% in coordination of care (as documented) at patient's floor/unit and/or counseling patient: Coding Level of Care Code 16887 Subseq Hosp Care Lvl 3 Diagnoses Acute respiratory failure due to COVID-19 U07.1; J96.00 Pneumonia due to COVID-19 virus U07.1; J12.82 Obesity E66.9 Time Spent (min) 35
[2021-03-07] MEDS: INSULIN ASPART 100 UNITS/ML 3 ML PEN SC SCH ×4 (08:40→20:49)
[2021-03-07] MEDS: guaiFENesin 600 MG TABCR PO SCH ×2 (08:41→20:41)
[2021-03-07] MEDS: POTASSIUM CHLORIDE CRTAB 20 MEQ TABCR PO SCH (08:41)
[2021-03-07] MEDS: FUROSEMIDE 40 MG/4 ML VIAL IV SCH (08:41)
[2021-03-07] MEDS: lisinopril 40 MG TAB PO SCH (08:41)
[2021-03-07] MEDS: INSULIN HUMAN NPH SC SCH (08:42)
[2021-03-07] MEDS: INSULIN GLARGINE SOLOSTAR 100 UNITS/ML 3 ML PEN SC SCH ×2 (08:43→21:06)
[2021-03-07] MEDS: BENZONATATE 100 MG CAPSULE PO SCH ×3 (08:46→20:53)
[2021-03-07] MEDS: ENOXAPARIN INJ 60 MG/0.6 ML SYR SQ SCH ×2 (10:14→20:42)
[2021-03-07] MEDS: traMADol HCL 50 MG TABLET PO PRN (13:40)
--- NOTE | 2021-03-07 15:31 | Hospitalist Progress Note ---
Date of Service March 07, 2021 Assessment & Plan (1) Acute respiratory failure due to COVID-19: Plan: Progressed infiltrates on most recent CXR. Now requiring BIPAP. Cont higher dose dexamethasone. Not a candidate for baricitinib at this time or any other immunosuppressive therapy. Titrate per pulmonology and per respiratory therapy based on needs. Still requiring high flow oxygen to maintain saturation with BiPAP as needed Appreciate pulmonary input and recommendation Still requiring very high flow oxygen up to 6 L with 100% FiO2 to maintain saturation-on the verge of intubation He is on negative balance of [id number] since admission Constipation Complaints of abdominal pain over right upper quadrant without any nausea and or vomiting CT scan of the abdomen did not show any cholecystitis but has cholelithiasis Has been getting laxatives (2) Pneumonia due to COVID-19 virus: Plan: Cont plan as above. (3) DMII (diabetes mellitus, type 2): Plan: HbA1C 11 Poorly controlled Continue present insulin Glycemic pharmacist consulted with overall glycemic picture well controlled. (4) HTN (hypertension): Plan: Blood pressure stable today Continue current medication (5) Asthma: Plan: chronic, stable, no wheezing. Likely complicating Covid pneumonia (6) Depression: Plan: Continue Abilify, mirtazapine per home regimen. (7) DVT prophylaxis: Plan: Lovenox SQ Full code Dispo-PCU, notably patient is incarcerated. Admission and Anticipated Discharge Date Admission Date: February 27, 2021 Subjective 03/06/2021 The patient was seen and examined in telemetry unit and in the Covid room He complains to have some abdominal pain without any distention, nausea and/or vomiting He has not moved his bowel as of today Does not have any significant respiratory symptoms but has been requiring high flow oxygen to maintain saturation 03/07/2021 The patient was seen and examined in telemetry unit and in the Covid room His condition remains stable but still requiring high flow oxygen to maintain saturation His abdominal pain is stable to but has not had a bowel movement Review of Systems Review of Systems: All systems reviewed and are unremarkable except as noted below Respiratory: Mild to no respiratory symptoms at rest Gastrointestinal: Mild abdominal pain without distention, nausea and or vomiting Physical Exam Physical Exam: Lying in bed comfortably Constitutional: well developed, well nourished, + ill appearing and + morbidly obese Eyes: PERRL, conjunctivae normal, anicteric sclerae ENMT: external ear and nose normal, oropharynx normal Neck: trachea midline, no thyromegaly Respiratory: + cough; no respiratory distress and no labored breathing Auscultation: + diminished lung sounds, + crackles (Minimal crackles at the bases) and + wheezes Cardiovascular: Rate/Rhythm: regular rate, regular rhythm and + tachycardic Heart Sounds: normal S1 and normal S2; no murmur Extremities: + edema (Trace edema bilaterally) Gastrointestinal (Abdomen): Inspection/Auscultation: normal bowel sounds; abdomen not distended Percussion/Palpation: abdomen soft; abdomen nontender Musculoskeletal: No acute arthritis in any joint Neurologic: Alert, awake and oriented x3. Generally weak Psychiatric: A+Ox3, euthymic affect Lymphatic: no cervical or axillary lymphadenopathy Results & Data Results & Data ([facility]) Vital Signs (Past 12 Hours) Vital Signs Temp Pulse Pulse Pulse Resp BP Pulse Ox 03/07/21 14:50 80 16 91 03/07/21 11:53 37.1 C 75 20 117/83 91 03/07/21 11:06 85 22 91 03/07/21 07:32 79 18 92 03/07/21 07:24 37.0 C 83 20 134/85 93 03/07/21 05:21 107 H Laboratory Results Short CBC 03/07/21 Range/Units 03:29 WBC 9.22 (4.8-10.8) K/uL Hgb 17.6 (14.0-18.0) g/dL Hct 50.4 (42-52) % Plt Count 140 (130-400) K/uL BMP 03/07/21 03:29 Sodium 135 L Potassium 4.2 Chloride 104 Carbon Dioxide 26 BUN 30 H Creatinine 0.81 Glucose 98 Calcium 9.2 Liver Function 03/07/21 Range/Units 03:29 Total Bilirubin 1.2 H (0.2-1) mg/dl AST 47 H (15-37) U/L ALT 82 H (12-78) U/L Alkaline Phosphatase 80 (45-117) U/L Albumin 2.8 L (3.4-5.0) gm/dl Medications Administered Current Inpatient Medications Acetaminophen (Acetaminophen 325 Mg Tab) 650 mg PO Q4H PRN PRN Reason: Pain or Fever Stop: 03/29/21 15:52 Last Admin: 03/03/21 20:48 Dose: 650 mg Documented by: Aripiprazole (Aripiprazole 15 Mg Tab) 15 mg PO HS PITO Stop: 03/30/21 20:59 Last Admin: 03/06/21 20:31 Dose: 15 mg Documented by: Benzonatate (Benzonatate 100 Mg Capsule) 100 mg PO TID PITO Stop: 03/31/21 20:59 Last Admin: 03/07/21 13:06 Dose: 100 mg Documented by: Budesonide (Budesonide 0.5 Mg/2 Ml Vial (Pulmicort)) 0.5 mg NEB BIDR PITO Stop: 04/03/21 09:44 Last Admin: 03/07/21 07:32 Dose: 0.5 mg Documented by: Dextrose (Dextrose 50% 50 Ml Syringe) 25 - 50 ml IV UD PRN; Protocol PRN Reason: Hypoglycemia Protocol Stop: 03/29/21 15:52 Enoxaparin Sodium (Enoxaparin Inj 60 Mg/0.6 Ml Syr) 60 mg SQ Q12 PITO Stop: 04/04/21 20:59 Last Admin: 03/07/21 10:14 Dose: 60 mg Documented by: Furosemide (Furosemide 40 Mg/4 Ml Vial) 40 mg IV Q24H PITO Stop: 04/04/21 09:59 Last Admin: 03/07/21 08:41 Dose: 40 mg Documented by: Glucagon (Glucagon For Inj 1 Mg Vial) 1 mg SQ UD PRN; Protocol PRN Reason: Hypoglycemia Protocol Stop: 03/29/21 15:52 Glucose (Glucose 10 Tabs/Tube) 4 - 8 tabs PO UD PRN; Protocol PRN Reason: Hypoglycemia Protocol Stop: 03/29/21 15:52 Glucose (Glucose 40% Gel 15 Gm Tube) 15 - 30 gm PO UD PRN; Protocol PRN Reason: Hypoglycemia Protocol Stop: 03/29/21 15:52 Guaifenesin (Guaifenesin 600 Mg Tabcr) 600 mg PO Q12 PITO Stop: 04/03/21 20:59 Last Admin: 03/07/21 08:41 Dose: 600 mg Documented by: Guaifenesin/Codeine Phosphate (Guaifenesin/Codeine 200mg/20mg 10ml Udc) 10 ml PO Q6H PRN PRN Reason: Cough Stop: 03/29/21 16:25 Last Admin: 03/03/21 12:41 Dose: 10 ml Documented by: Dexamethasone 10 mg/ Syringe 2.5 mls @ 1 mls/min IV Q24H [facility] Stop: 04/06/21 02:09 Last Admin: 03/07/21 02:44 Dose: 1 mls/min Documented by: Insulin Aspart (Insulin Aspart 100 Units/Ml 3 Ml Pen) 0 units SC ACHS [facility] Stop: 03/30/21 11:29 Last Admin: 03/07/21 13:05 Dose: 44 units Documented by: Insulin Glargine (Insulin Glargine Solostar 100 Units/Ml 3 Ml Pen) 0 units SC BID [facility]; Protocol Stop: 04/01/21 20:59 Last Admin: 03/07/21 08:43 Dose: 30 units Documented by: Insulin Human NPH (Insulin Human Nph) 60 units SC QAM [facility] Stop: 04/05/21 08:59 Last Admin: 03/07/21 08:42 Dose: 60 units Documented by: Lisinopril (Lisinopril 40 Mg Tab) 40 mg PO DAILY [facility] Stop: 03/31/21 08:59 Last Admin: 03/07/21 08:41 Dose: 40 mg Documented by: Menthol (Cough Drop (Sugar Free) Levon 24 Levon/1 Box) 1 levon BUCCAL PRN PRN PRN Reason: Sore Throat Stop: 04/02/21 05:27 Last Admin: 03/03/21 06:31 Dose: 1 levon Documented by: Mirtazapine (Mirtazapine Soltab 15 Mg) 45 mg PO HS [facility] Stop: 03/30/21 20:59 Last Admin: 03/06/21 20:31 Dose: 45 mg Documented by: Miscellaneous (Carbohydrates For Hypoglycemia ) 15 - 30 gm PO UD PRN PRN Reason: Hypoglycemia Protocol Stop: 03/29/21 15:52 Miscellaneous Information (Pharmacy Glycemic Mgmt Consult) 1 ea N/A UD PRN PRN Reason: Consult Stop: 03/30/21 08:16 Ondansetron HCl (Ondansetron Inj 2 Mg/Ml 2 Ml Vial) 4 mg IV Q6H PRN PRN Reason: Nausea Stop: 03/29/21 15:52 Polyethylene Glycol (Polyethylene (Miralax) 17 Gm Pack) 17 gm PO DAILY PRN PRN Reason: Constipation Stop: 03/29/21 15:52 Last Admin: 03/06/21 11:04 Dose: 17 gm Documented by: Potassium Chloride (Potassium Chloride Crtab 20 Meq Tabcr) 20 meq PO QAM [facility] Stop: 04/01/21 08:59 Last Admin: 03/07/21 08:41 Dose: 20 meq Documented by: Tramadol HCl (Tramadol Hcl 50 Mg Tablet) 25 - 50 mg PO Q4H PRN PRN Reason: Pain Stop: 04/02/21 20:37 Last Admin: 03/07/21 13:40 Dose: 50 mg Documented by:
[2021-03-07] MEDS: MIRTAZAPINE SOLTAB 15 MG PO SCH (20:41)
[2021-03-07] MEDS: ARIPiprazole 15 MG TAB PO SCH (20:42)
[2021-03-08 06:39] LABS: Hematocrit (blood only) 49.8 % (42-52); Hemoglobin 17.1 g/dL (14.0-18.0); Mean Corpuscular Hemoglobin 29.8 pg (25-34); Mean Corpuscular Hgb Conc 34.3 g/dL (32-36); Mean Corpuscular Volume 86.8 fL (80-100); Mean Platelet Volume 11.2 fL (7.4-10.4); Platelet Count 125 K/uL (130-400); RDW Standard Deviation 44.6 fL (36.4-46.3); Red Blood Count 5.74 M/uL (4.7-6.1); White Blood Count 8.76 K/uL (4.8-10.8)
[2021-03-08 07:17] LABS: Albumin Level 2.6 gm/dl (3.4-5.0); BUN Creatinine Ratio 41.6 (10-20); Calcium 9.1 mg/dl (8.5-10.1); Creatinine Clr Calc Pharmacy 135.7 ml/min; Est GFR (African American) 120.7 ml/min; Est GFR (Non-African American) 104.2 ml/min; Potassium 3.9 mmol/L (3.5-5.1)
[2021-03-08 07:20] LABS: Albumin Globulin Ratio 0.5 (0.9-2); Bilirubin,Total 1.2 mg/dl (0.2-1); Globulin 5.1 gm/dl (2.5-4.0); Total Protein 7.7 gm/dl (6.4-8.2)
[2021-03-08] MEDS: BUDESONIDE 0.5 MG/2 ML VIAL (PULMICORT) NEB SCH ×2 (07:52→20:14)
[2021-03-08] MEDS: lisinopril 40 MG TAB PO SCH (08:24)
[2021-03-08] MEDS: ENOXAPARIN INJ 60 MG/0.6 ML SYR SQ SCH ×2 (08:24→20:33)
[2021-03-08] MEDS: guaiFENesin 600 MG TABCR PO SCH (08:24)
[2021-03-08] MEDS: POTASSIUM CHLORIDE CRTAB 20 MEQ TABCR PO SCH (08:25)
[2021-03-08] MEDS: dexAMETHasone 10 MG in SYRINGE 0 ML IV SCH (08:30)
[2021-03-08] MEDS: BENZONATATE 100 MG CAPSULE PO SCH ×2 (08:56→14:05)
[2021-03-08] MEDS: FUROSEMIDE 40 MG/4 ML VIAL IV SCH (08:57)
[2021-03-08] MEDS: INSULIN ASPART 100 UNITS/ML 3 ML PEN SC SCH ×4 (08:59→20:34)
[2021-03-08] MEDS: INSULIN GLARGINE SOLOSTAR 100 UNITS/ML 3 ML PEN SC SCH ×2 (09:00→21:35)
[2021-03-08] MEDS: INSULIN HUMAN NPH SC SCH (09:00)
--- NOTE | 2021-03-08 14:02 | Pharmacy Report ---
Pharmacy Glycemic Short Note 2 - Date of Service March 08, 2021 - Glycemic Short BSG Results (Last 24 hours): 03/07/21 03/07/21 03/08/21 16:38 20:43 06:11 Glucose 73 POC Glucose 202 H 102 H 03/08/21 03/08/21 07:45 11:42 Glucose POC Glucose 81 152 H OUTPATIENT ANTIDIABETIC REGIMEN: * uncertain * A1c = 11.1% 02/28/21 ASSESSMENT: 03/08: * Patient required 258 units of insulin yesterday, (60 units of lantus, 60 units of NPH + 138 units of correctional/prandial) * BSGs have been downtrending over the past two days, will loosen carb ratio but slightly increase NPH * Will slightly reduce lantus scale as fasting has also downtrended. * Dex day #9, regimen will need re-evaluated if dexamethasone discontinued 03/05: * Fasting blood sugar at goal, continue Lantus * BGSs still rising throughout the day with increase in steroids, tighten CF/CR & increase NPH 03/04: * Dexamethasone increased to 10mg daily tomorrow, additional 4mg given now, increase NPH * BGSs still rising throughout the day, tighten CF/CR 03/03: * Continues on dex 6mg daily. Type 2 DM diet ordered * BSGs improved since yesterday. NPH increased to 45 units (~0.4units/kg) today given high prandial BSGs yesterday. Novolog correction tightened to improve prandial BSGs as well. * No change to Lantus regimen today. 03/02: * Insulin infusion titrated off this morning, continues with dexamethasone 6 mg IV daily * Increased NPH for dexamethasone coverage to ~0.35 mg/kg, lunch BSG elevated, will plan on increasing tomorrow * Tightened carb ratio 03/01 * Insulin infusion continues to infuse, was down to 3 units/hr but increased at lunch- patient restarted diet, dextrose of was discontinued * Will give 1x dose of NPH now to help with steroid coverage and move to AM dosing with dex tomorrow. Will set scale for PM lantus to help transition off of insulin infusion 02/28 * Type 2 diabetic admitted to Telemetry for COVID19 pneumonia with hypoxia * Patient was severely hyperglycemic (without AG acidosis) on admission. Severe hyperglycemia persists despite use of weight-based SQ insulin doses at "severe" stress level. * Will initiate IV insulin drip with current basal insulin order to help quickly and safely bring BSGs to goal. Continuing current basal dose will allow for smoother transition off insulin drip once true needs are better known with current stressors. * Novolog SQ will be given with meals to prevent unnecessary upwards titrations in IV insulin infusion rates PLAN FOR INPATIENT GLYCEMIC CONTROL: * Basal insulin * Lantus 25-30-35 units BID * NPH 70 units SQ daily with dexamethasone 10mg IV daily * Bolus insulin * NovoLog SQ ACHS * Correction factor: 8 mg/dl/unit * Nutritional / Prandial insulin per carb ratio of 1 unit per 1.5 grams CHO consumed PLAN FOR DISCHARGE: * to be determined
--- NOTE | 2021-03-08 14:57 | Pulmonology Progress Note ---
Date of Service March 08, 2021 Assessment & Plan (1) Acute respiratory failure due to COVID-19: (2) Pneumonia due to COVID-19 virus: (3) Obesity: Plan: Impression: 50-year-old inmate hospitalized since 02/27 with breakthrough Covid. He was previously escalated to high flow oxygen and is currently requiring CPAP at 12 cm of water. Patient is tolerating the CPAP well. He is alternating between belly and side sleeping. Recommendations: 1. Acute hypoxemic respiratory failure: Patient appears relatively comfortable today despite his high oxygen requirement. His chest x-ray demonstrates persistent parenchymal densities. Continue to wean oxygen as tolerated. May need to transition between CPAP and high flow oxygen therapy.. Recommend the patient continue to try to self proning is much as possible. Continue Lasix daily. Check BNP in a.m. Patient is excluded for consideration from ECMO as he is outside the window to qualify and has a BMI greater than 35. Continue supportive care. 2. Covid pneumonitis: COVID-19 PCR positive 02/27/2021, CRP 2.06 --> 6.43, Procalcitonin 0.23--> 0.09. Patient is outside the window for additional immunosuppressive therapy. Given that he is now 10 days out, may be reasonable to pursue higher dose immune suppression for late-phase post ARDS with 20 mg a day for 5 days followed by 10 mg a day for 5 days. There is an increased risk of infectious complications associated with this with the patient appears relatively stagnant currently. 3. DVT prophylaxis: Continue enoxaparin. Patient currently on 60 mg subcutaneously every 12 hours. 4. Management the patient's other medical issues per primary service Patient remains critically ill but does not appear to require intubation mechanical ventilation currently. Would like to avoid if possible. Patient seems comfortable currently Admission and Anticipated Discharge Date Admission Date: February 27, 2021 Subjective Patient seen and examined. EMR reviewed. The patient reports that his breathing is little bit better. He appears more comfortable and is not significantly tachypneic despite his high oxygen requirement. He is tolerating a diet. He denies any cough or chest pain Review of Systems Review of Systems: All systems reviewed & are unremarkable except as noted in Subjective Physical Exam Constitutional: WD/WN, vitals as above Neck: trachea midline, no thyromegaly Respiratory: normal respiratory effort; no respiratory distress, no labored breathing and not tachypneic Auscultation: + crackles and + wheezes Cardiovascular: RRR, no murmur, no edema Gastrointestinal (Abdomen): normal bowel sounds, soft, nontender, no hepatosplenomegaly Musculoskeletal: Extremities: extremities normal to inspection Skin: no rashes, warm and dry Multiple tattoos Neurologic: Nonfocal exam Lymphatic: no cervical lymphadenopathy Results & Data Results & Data ([facility]) Vital Signs (Past 12 Hours) Vital Signs Temp Pulse Pulse Resp BP Pulse Ox 03/08/21 11:43 36.6 C 103 H 19 109/75 96 03/08/21 11:33 73 20 95 03/08/21 07:54 110 H 20 89 L 03/08/21 07:52 109 H 24 91 03/08/21 07:42 36.7 C 84 18 125/79 94 03/08/21 04:29 80 20 92 03/08/21 04:09 36.7 C 87 16 116/84 94 Laboratory Results 03/08/21 06:11 03/08/21 06:11 Diagnostic Findings No new imaging PG Care Time/CCT Total # of Minutes Spent Total Time Spent with Patient: Total time spent is greater than 50% in coordination of care (as documented) at patient's floor/unit and/or counseling patient: Coding Level of Care Code 57939 Subseq Hosp Care Lvl 2 Diagnoses Acute respiratory failure due to COVID-19 U07.1; J96.00 Pneumonia due to COVID-19 virus U07.1; J12.82 Obesity E66.9
--- NOTE | 2021-03-08 16:10 | Hospitalist Progress Note ---
Date of Service March 08, 2021 Assessment & Plan (1) Acute respiratory failure due to COVID-19: Plan: Progressed infiltrates on most recent CXR. Now requiring BIPAP. Cont higher dose dexamethasone. Not a candidate for baricitinib at this time or any other immunosuppressive therapy. Titrate per pulmonology and per respiratory therapy based on needs. Still requiring high flow oxygen to maintain saturation with BiPAP as needed Appreciate pulmonary input and recommendation Still requiring very high flow oxygen up to 6 L with 100% FiO2 to maintain saturation-on the verge of intubation He is on negative balance of [id number] since admission Has remained stable and is still requiring high flow oxygen Constipation Complaints of abdominal pain over right upper quadrant without any nausea and or vomiting CT scan of the abdomen did not show any cholecystitis but has cholelithiasis Has been getting laxatives-bowel movement (2) Pneumonia due to COVID-19 virus: Plan: Cont plan as above. (3) DMII (diabetes mellitus, type 2): Plan: HbA1C 11 Poorly controlled Continue present insulin Glycemic pharmacist consulted with overall glycemic picture well controlled. (4) HTN (hypertension): Plan: Blood pressure stable today Continue current medication (5) Asthma: Plan: chronic, stable, no wheezing. Likely complicating Covid pneumonia (6) Depression: Plan: Continue Abilify, mirtazapine per home regimen. (7) DVT prophylaxis: Plan: Lovenox SQ Full code Dispo-PCU, notably patient is incarcerated. Admission and Anticipated Discharge Date Admission Date: February 27, 2021 Subjective 03/06/2021 The patient was seen and examined in telemetry unit and in the Covid room He complains to have some abdominal pain without any distention, nausea and/or vomiting He has not moved his bowel as of today Does not have any significant respiratory symptoms but has been requiring high flow oxygen to maintain saturation 03/07/2021 The patient was seen and examined in telemetry unit and in the Covid room His condition remains stable but still requiring high flow oxygen to maintain saturation His abdominal pain is stable to but has not had a bowel movement 03/08/2021 The patient was seen and examined in telemetry unit and in the Covid room Remains stable and is still requiring high flow oxygen to maintain saturation Abdominal pain is controlled Review of Systems Review of Systems: All systems reviewed and are unremarkable except as noted below Respiratory: Mild to no respiratory symptoms at rest Gastrointestinal: Mild abdominal pain without distention, nausea and or vomiting Physical Exam Physical Exam: Lying in bed comfortably Constitutional: well developed, well nourished, + ill appearing and + morbidly obese Eyes: PERRL, conjunctivae normal, anicteric sclerae ENMT: external ear and nose normal, oropharynx normal Neck: trachea midline, no thyromegaly Respiratory: + cough; no respiratory distress and no labored breathing Auscultation: + diminished lung sounds, + crackles (Minimal crackles at the bases) and + wheezes Cardiovascular: Rate/Rhythm: regular rate, regular rhythm and + tachycardic Heart Sounds: normal S1 and normal S2; no murmur Extremities: + edema (Trace edema bilaterally) Gastrointestinal (Abdomen): Inspection/Auscultation: normal bowel sounds; abdomen not distended Percussion/Palpation: abdomen soft; abdomen nontender Musculoskeletal: No acute arthritis in any joint Neurologic: Alert, awake and oriented x3. Psychiatric: A+Ox3, euthymic affect Lymphatic: no cervical or axillary lymphadenopathy Results & Data Results & Data ([facility]) Vital Signs (Past 12 Hours) Vital Signs Temp Pulse Pulse Resp BP Pulse Ox 03/08/21 15:25 36.6 C 107 H 16 114/82 92 03/08/21 14:10 75 18 93 03/08/21 11:43 36.6 C 103 H 19 109/75 96 03/08/21 11:33 73 20 95 03/08/21 07:54 110 H 20 89 L 03/08/21 07:52 109 H 24 91 03/08/21 07:42 36.7 C 84 18 125/79 94 03/08/21 04:29 80 20 92 03/08/21 04:09 36.7 C 87 16 116/84 94 Laboratory Results Short CBC 03/08/21 Range/Units 06:11 WBC 8.76 (4.8-10.8) K/uL Hgb 17.1 (14.0-18.0) g/dL Hct 49.8 (42-52) % Plt Count 125 L (130-400) K/uL BMP 03/08/21 06:11 Sodium 133 L Potassium 3.9 Chloride 102 Carbon Dioxide 25 BUN 33 H Creatinine 0.80 Glucose 73 Calcium 9.1 Liver Function 03/08/21 Range/Units 06:11 Total Bilirubin 1.2 H (0.2-1) mg/dl AST 42 H (15-37) U/L ALT 79 H (12-78) U/L Alkaline Phosphatase 73 (45-117) U/L Albumin 2.6 L (3.4-5.0) gm/dl Medications Administered Current Inpatient Medications Acetaminophen (Acetaminophen 325 Mg Tab) 650 mg PO Q4H PRN PRN Reason: Pain or Fever Stop: 03/29/21 15:52 Last Admin: 03/03/21 20:48 Dose: 650 mg Documented by: Aripiprazole (Aripiprazole 15 Mg Tab) 15 mg PO HS PITO Stop: 03/30/21 20:59 Last Admin: 03/07/21 20:42 Dose: 15 mg Documented by: Budesonide (Budesonide 0.5 Mg/2 Ml Vial (Pulmicort)) 0.5 mg NEB BIDR PITO Stop: 04/03/21 09:44 Last Admin: 03/08/21 07:52 Dose: 0.5 mg Documented by: Dextrose (Dextrose 50% 50 Ml Syringe) 25 - 50 ml IV UD PRN; Protocol PRN Reason: Hypoglycemia Protocol Stop: 03/29/21 15:52 Enoxaparin Sodium (Enoxaparin Inj 60 Mg/0.6 Ml Syr) 60 mg SQ Q12 PITO Stop: 04/04/21 20:59 Last Admin: 03/08/21 08:24 Dose: 60 mg Documented by: Furosemide (Furosemide 40 Mg/4 Ml Vial) 40 mg IV Q24H PITO Stop: 04/04/21 09:59 Last Admin: 03/08/21 08:57 Dose: 40 mg Documented by: Glucagon (Glucagon For Inj 1 Mg Vial) 1 mg SQ UD PRN; Protocol PRN Reason: Hypoglycemia Protocol Stop: 03/29/21 15:52 Glucose (Glucose 10 Tabs/Tube) 4 - 8 tabs PO UD PRN; Protocol PRN Reason: Hypoglycemia Protocol Stop: 03/29/21 15:52 Glucose (Glucose 40% Gel 15 Gm Tube) 15 - 30 gm PO UD PRN; Protocol PRN Reason: Hypoglycemia Protocol Stop: 03/29/21 15:52 Guaifenesin/Codeine Phosphate (Guaifenesin/Codeine 200mg/20mg 10ml Udc) 10 ml PO Q6H PRN PRN Reason: Cough Stop: 03/29/21 16:25 Last Admin: 03/03/21 12:41 Dose: 10 ml Documented by: Dexamethasone 20 mg/ Sodium (Chloride) 55 mls @ 200 mls/hr IV Q24H PENDING SALE TO [facility] Stop: 04/08/21 08:59 Insulin Aspart (Insulin Aspart 100 Units/Ml 3 Ml Pen) 0 units SC ACHS PENDING SALE TO [facility] Stop: 03/30/21 11:29 Last Admin: 03/08/21 12:45 Dose: 32 units Documented by: Insulin Glargine (Insulin Glargine Solostar 100 Units/Ml 3 Ml Pen) 0 units SC BID PENDING SALE TO [facility]; Protocol Stop: 04/01/21 20:59 Last Admin: 03/08/21 09:00 Dose: 30 units Documented by: Insulin Human NPH (Insulin Human Nph) 70 units SC QAM PENDING SALE TO [facility] Stop: 04/05/21 08:59 Last Admin: 03/08/21 09:00 Dose: 70 units Documented by: Lisinopril (Lisinopril 40 Mg Tab) 40 mg PO DAILY PENDING SALE TO [facility] Stop: 03/31/21 08:59 Last Admin: 03/08/21 08:24 Dose: 40 mg Documented by: Menthol (Cough Drop (Sugar Free) Levon 24 Levon/1 Box) 1 levon BUCCAL PRN PRN PRN Reason: Sore Throat Stop: 04/02/21 05:27 Last Admin: 03/03/21 06:31 Dose: 1 levon Documented by: Mirtazapine (Mirtazapine Soltab 15 Mg) 45 mg PO HS PENDING SALE TO [facility] Stop: 03/30/21 20:59 Last Admin: 03/07/21 20:41 Dose: 45 mg Documented by: Miscellaneous (Carbohydrates For Hypoglycemia ) 15 - 30 gm PO UD PRN PRN Reason: Hypoglycemia Protocol Stop: 03/29/21 15:52 Miscellaneous Information (Pharmacy Glycemic Mgmt Consult) 1 ea N/A UD PRN PRN Reason: Consult Stop: 03/30/21 08:16 Ondansetron HCl (Ondansetron Inj 2 Mg/Ml 2 Ml Vial) 4 mg IV Q6H PRN PRN Reason: Nausea Stop: 03/29/21 15:52 Polyethylene Glycol (Polyethylene (Miralax) 17 Gm Pack) 17 gm PO DAILY PRN PRN Reason: Constipation Stop: 03/29/21 15:52 Last Admin: 03/06/21 11:04 Dose: 17 gm Documented by: Potassium Chloride (Potassium Chloride Crtab 20 Meq Tabcr) 20 meq PO QAM PITO Stop: 04/01/21 08:59 Last Admin: 03/08/21 08:25 Dose: 20 meq Documented by: Tramadol HCl (Tramadol Hcl 50 Mg Tablet) 25 - 50 mg PO Q4H PRN PRN Reason: Pain Stop: 04/02/21 20:37 Last Admin: 03/07/21 13:40 Dose: 50 mg Documented by:
[2021-03-08] MEDS: ACETAMINOPHEN 325 MG TAB PO PRN (17:47)
[2021-03-08] MEDS ORDERED: NURSING DECISION MEDICATION ONE (19:43)
[2021-03-08] MEDS ORDERED: SODIUM CHLORIDE 0.65% NA SOLN 45 ML (OCEAN) PRN (19:56)
[2021-03-08] MEDS: MIRTAZAPINE SOLTAB 15 MG PO SCH (20:33)
[2021-03-08] MEDS: ARIPiprazole 15 MG TAB PO SCH (20:33)
[2021-03-09] MEDS: traMADol HCL 50 MG TABLET PO PRN (00:06)
[2021-03-09] MEDS: BUDESONIDE 0.5 MG/2 ML VIAL (PULMICORT) NEB SCH ×2 (07:27→20:38)
[2021-03-09] MEDS: dexAMETHasone 20 MG in SODIUM CHLORIDE 0.9% 50 ML IV SCH (08:24)
[2021-03-09] MEDS: ENOXAPARIN INJ 60 MG/0.6 ML SYR SQ SCH ×2 (08:24→20:44)
[2021-03-09] MEDS: lisinopril 40 MG TAB PO SCH (08:25)
[2021-03-09] MEDS: POTASSIUM CHLORIDE CRTAB 20 MEQ TABCR PO SCH (08:25)
[2021-03-09] MEDS: FUROSEMIDE 40 MG/4 ML VIAL IV SCH (09:43)
[2021-03-09] MEDS: INSULIN ASPART 100 UNITS/ML 3 ML PEN SC SCH ×4 (09:48→20:45)
[2021-03-09] MEDS: INSULIN HUMAN NPH SC SCH (09:49)
[2021-03-09] MEDS: INSULIN GLARGINE SOLOSTAR 100 UNITS/ML 3 ML PEN SC SCH ×2 (09:50→20:45)
--- NOTE | 2021-03-09 12:07 | Pulmonology Progress Note ---
Date of Service March 09, 2021 Assessment & Plan (1) Acute respiratory failure due to COVID-19: (2) Pneumonia due to COVID-19 virus: (3) Obesity: Plan: Impression: 50-year-old inmate hospitalized since 02/27 with breakthrough Covid. He was previously escalated to high flow oxygen and is currently requiring CPAP at 12 cm of water. Patient is tolerating the CPAP well. He is alternating between belly and side sleeping. Recommendations: 1. Acute hypoxemic respiratory failure: Patient appears relatively comfortable today despite his high oxygen requirement. His chest x-ray demonstrates persistent parenchymal densities. Continue to wean oxygen as tolerated. May need to transition between CPAP and high flow oxygen therapy.. Recommend the patient continue to try to self proning is much as possible. Continue Lasix daily. Patient is excluded for consideration from ECMO as he is outside the window to qualify and has a BMI greater than 35. Continue supportive care. 2. Covid pneumonitis: COVID-19 PCR positive 02/27/2021, CRP 2.06 --> 6.43, Procalcitonin 0.23--> 0.09. Patient is currently on dexamethasone for late- phase post ARDS with 20 mg a day for 5 days followed by 10 mg a day for 5 days. There is an increased risk of infectious complications associated with this with the patient appears relatively stagnant currently. 3. DVT prophylaxis: Continue enoxaparin. Patient currently on 60 mg subcutaneously every 12 hours. 4. Management the patient's other medical issues per primary service Patient remains critically ill but does not appear to require intubation mechanical ventilation currently. Would like to avoid if possible. Patient seems comfortable currently. Continue to follow Admission and Anticipated Discharge Date Admission Date: February 27, 2021 Subjective Patient seen and examined. EMR reviewed. The patient continues to report that his breathing is improved. He is trying to position in the decubitus position is much as tolerated. He is not coughing or expectorating phlegm. Review of Systems Review of Systems: All systems reviewed & are unremarkable except as noted in Subjective Physical Exam Constitutional: WD/WN, vitals as above Neck: trachea midline, no thyromegaly Respiratory: normal respiratory effort; no respiratory distress, no labored breathing and not tachypneic Auscultation: + crackles and + wheezes Cardiovascular: RRR, no murmur, no edema Gastrointestinal (Abdomen): normal bowel sounds, soft, nontender, no hepatosplenomegaly Musculoskeletal: Extremities: extremities normal to inspection Skin: no rashes, warm and dry Lymphatic: no cervical or axillary lymphadenopathy no cervical lymphadenopathy Results & Data Results & Data ([facility]) Vital Signs (Past 12 Hours) Vital Signs Temp Pulse Pulse Pulse Resp BP Pulse Ox 03/09/21 11:52 36.8 C 88 18 96/56 L 93 03/09/21 10:50 87 18 95 03/09/21 07:29 96 H 16 92 03/09/21 07:27 82 18 92 03/09/21 07:21 36.6 C 92 H 18 100/57 L 96 03/09/21 04:35 36.7 C 82 20 127/77 94 03/09/21 03:12 83 26 H 94 03/09/21 00:20 93 H 26 H 91 Laboratory Results 03/08/21 06:11 03/08/21 06:11 Diagnostic Findings No new imaging PG Care Time/CCT Total # of Minutes Spent Total Time Spent with Patient: Total time spent is greater than 50% in coordination of care (as documented) at patient's floor/unit and/or counseling patient: Coding Level of Care Code 07017 Subseq Hosp Care Lvl 2 Diagnoses Acute respiratory failure due to COVID-19 U07.1; J96.00 Pneumonia due to COVID-19 virus U07.1; J12.82 Obesity E66.9
--- NOTE | 2021-03-09 14:22 | Hospitalist Progress Note ---
Date of Service March 09, 2021 Assessment & Plan (1) Acute respiratory failure due to COVID-19: Plan: Progressed infiltrates on most recent CXR. Now requiring BIPAP. Cont higher dose dexamethasone. Not a candidate for baricitinib at this time or any other immunosuppressive therapy. Titrate per pulmonology and per respiratory therapy based on needs. Still requiring high flow oxygen to maintain saturation with BiPAP as needed Appreciate pulmonary input and recommendation Still requiring very high flow oxygen up to 6 L with 100% FiO2 to maintain saturation-on the verge of intubation He is on negative balance of [id number] since admission Has remained stable and is still requiring high flow oxygen Oxygen requirement has come down a little bit and generally he is feeling much better We will continue current management Constipation Complaints of abdominal pain over right upper quadrant without any nausea and or vomiting CT scan of the abdomen did not show any cholecystitis but has cholelithiasis Has been getting laxatives-bowel moved (2) Pneumonia due to COVID-19 virus: Plan: Cont plan as above. (3) DMII (diabetes mellitus, type 2): Plan: HbA1C 11 Poorly controlled Continue present insulin Glycemic pharmacist consulted with overall glycemic picture well controlled. (4) HTN (hypertension): Plan: Blood pressure stable today Continue current medication Blood pressure remains in the lower side as of 03/09/2021 (5) Asthma: Plan: chronic, stable, no wheezing. Likely complicating Covid pneumonia (6) Depression: Plan: Continue Abilify, mirtazapine per home regimen. (7) DVT prophylaxis: Plan: Lovenox SQ Full code Dispo-PCU, notably patient is incarcerated. Admission and Anticipated Discharge Date Admission Date: February 27, 2021 Subjective 03/06/2021 The patient was seen and examined in telemetry unit and in the Covid room He complains to have some abdominal pain without any distention, nausea and/or vomiting He has not moved his bowel as of today Does not have any significant respiratory symptoms but has been requiring high flow oxygen to maintain saturation 03/07/2021 The patient was seen and examined in telemetry unit and in the Covid room His condition remains stable but still requiring high flow oxygen to maintain saturation His abdominal pain is stable to but has not had a bowel movement 03/08/2021 The patient was seen and examined in telemetry unit and in the Covid room Remains stable and is still requiring high flow oxygen to maintain saturation Abdominal pain is controlled 03/09/2021 The patient was seen and examined in telemetry unit and in the Covid room He has been feeling much better but still requires high flow oxygen to maintain saturation Abdominal pain is almost gone Review of Systems Review of Systems: All systems reviewed and are unremarkable except as noted below Respiratory: Mild to no respiratory symptoms at rest Gastrointestinal: Mild abdominal pain without distention, nausea and or vomiting Physical Exam Physical Exam: Lying in bed comfortably Constitutional: well developed, well nourished, + ill appearing and + morbidly obese Eyes: PERRL, conjunctivae normal, anicteric sclerae ENMT: external ear and nose normal, oropharynx normal Neck: trachea midline, no thyromegaly Respiratory: + cough; no respiratory distress and no labored breathing Auscultation: + diminished lung sounds, + crackles (Minimal crackles at the bases) and + wheezes Cardiovascular: Rate/Rhythm: regular rate, regular rhythm and + tachycardic Heart Sounds: normal S1 and normal S2; no murmur Extremities: + edema (Trace edema bilaterally) Gastrointestinal (Abdomen): Inspection/Auscultation: normal bowel sounds; abdomen not distended Percussion/Palpation: abdomen soft; abdomen nontender Neurologic: Alert, awake and oriented x3 Psychiatric: A+Ox3, euthymic affect Lymphatic: no cervical or axillary lymphadenopathy Results & Data Results & Data ([facility]) Vital Signs (Past 12 Hours) Vital Signs Temp Pulse Pulse Pulse Resp BP Pulse Ox 03/09/21 11:52 36.8 C 88 18 96/56 L 93 03/09/21 10:50 87 18 95 03/09/21 07:29 96 H 16 92 03/09/21 07:27 82 18 92 03/09/21 07:21 36.6 C 92 H 18 100/57 L 96 03/09/21 04:35 36.7 C 82 20 127/77 94 03/09/21 03:12 83 26 H 94 Medications Administered Current Inpatient Medications Acetaminophen (Acetaminophen 325 Mg Tab) 650 mg PO Q4H PRN PRN Reason: Pain or Fever Stop: 03/29/21 15:52 Last Admin: 03/08/21 17:47 Dose: 650 mg Documented by: Aripiprazole (Aripiprazole 15 Mg Tab) 15 mg PO HS PITO Stop: 03/30/21 20:59 Last Admin: 03/08/21 20:33 Dose: 15 mg Documented by: Budesonide (Budesonide 0.5 Mg/2 Ml Vial (Pulmicort)) 0.5 mg NEB BIDR PITO Stop: 04/03/21 09:44 Last Admin: 03/09/21 07:27 Dose: 0.5 mg Documented by: Dextrose (Dextrose 50% 50 Ml Syringe) 25 - 50 ml IV UD PRN; Protocol PRN Reason: Hypoglycemia Protocol Stop: 03/29/21 15:52 Enoxaparin Sodium (Enoxaparin Inj 60 Mg/0.6 Ml Syr) 60 mg SQ Q12 PITO Stop: 04/04/21 20:59 Last Admin: 03/09/21 08:24 Dose: 60 mg Documented by: Furosemide (Furosemide 40 Mg/4 Ml Vial) 40 mg IV Q24H PITO Stop: 04/04/21 09:59 Last Admin: 03/09/21 09:43 Dose: 40 mg Documented by: Glucagon (Glucagon For Inj 1 Mg Vial) 1 mg SQ UD PRN; Protocol PRN Reason: Hypoglycemia Protocol Stop: 03/29/21 15:52 Glucose (Glucose 10 Tabs/Tube) 4 - 8 tabs PO UD PRN; Protocol PRN Reason: Hypoglycemia Protocol Stop: 03/29/21 15:52 Glucose (Glucose 40% Gel 15 Gm Tube) 15 - 30 gm PO UD PRN; Protocol PRN Reason: Hypoglycemia Protocol Stop: 03/29/21 15:52 Guaifenesin/Codeine Phosphate (Guaifenesin/Codeine 200mg/20mg 10ml Udc) 10 ml PO Q6H PRN PRN Reason: Cough Stop: 03/29/21 16:25 Last Admin: 03/03/21 12:41 Dose: 10 ml Documented by: Dexamethasone 20 mg/ Sodium (Chloride) 55 mls @ 200 mls/hr IV Q24H PITO Stop: 04/08/21 08:59 Last Infusion: 03/09/21 09:43 Dose: Infused Documented by: Insulin Aspart (Insulin Aspart 100 Units/Ml 3 Ml Pen) 0 units SC ACHS PITO Stop: 03/30/21 11:29 Last Admin: 03/09/21 13:17 Dose: 10 units Documented by: Insulin Glargine (Insulin Glargine Solostar 100 Units/Ml 3 Ml Pen) 0 units SC BID [facility]; Protocol Stop: 04/01/21 20:59 Last Admin: 03/09/21 09:50 Dose: 25 units Documented by: Insulin Human NPH (Insulin Human Nph) [facility] Stop: 04/05/21 08:59 Last Admin: 03/09/21 09:49 Dose: 70 units Documented by: Lisinopril (Lisinopril 40 Mg Tab) 40 mg PO DAILY [facility] Stop: 03/31/21 08:59 Last Admin: 03/09/21 08:25 Dose: 40 mg Documented by: Menthol (Cough Drop (Sugar Free) Levon 24 Levon/1 Box) 1 levon BUCCAL PRN PRN PRN Reason: Sore Throat Stop: 04/02/21 05:27 Last Admin: 03/03/21 06:31 Dose: 1 levon Documented by: Mirtazapine (Mirtazapine Soltab 15 Mg) 45 mg PO HS [facility] Stop: 03/30/21 20:59 Last Admin: 03/08/21 20:33 Dose: 45 mg Documented by: Miscellaneous (Carbohydrates For Hypoglycemia ) 15 - 30 gm PO UD PRN PRN Reason: Hypoglycemia Protocol Stop: 03/29/21 15:52 Miscellaneous Information (Pharmacy Glycemic Mgmt Consult) 1 ea N/A UD PRN PRN Reason: Consult Stop: 03/30/21 08:16 Ondansetron HCl (Ondansetron Inj 2 Mg/Ml 2 Ml Vial) 4 mg IV Q6H PRN PRN Reason: Nausea Stop: 03/29/21 15:52 Polyethylene Glycol (Polyethylene (Miralax) 17 Gm Pack) 17 gm PO DAILY PRN PRN Reason: Constipation Stop: 03/29/21 15:52 Last Admin: 03/06/21 11:04 Dose: 17 gm Documented by: Potassium Chloride (Potassium Chloride Crtab 20 Meq Tabcr) 20 meq PO QAM [facility] Stop: 04/01/21 08:59 Last Admin: 03/09/21 08:25 Dose: 20 meq Documented by: Sodium Chloride (Sodium Chloride 0.65% Na Soln 45 Ml ([place])) 1 sprays NA UD PRN PRN Reason: Dryness Stop: 04/07/21 19:55 Last Admin: 03/08/21 20:32 Dose: 1 sprays Documented by: Tramadol HCl (Tramadol Hcl 50 Mg Tablet) 25 - 50 mg PO Q4H PRN PRN Reason: Pain Stop: 04/02/21 20:37 Last Admin: 03/09/21 00:06 Dose: 50 mg Documented by:
[2021-03-09] MEDS: ARIPiprazole 15 MG TAB PO SCH (20:44)
[2021-03-09] MEDS: MIRTAZAPINE SOLTAB 15 MG PO SCH (20:46)
[2021-03-10 07:18] LABS: Basophils # (auto) 0.01 K/uL (0-0.2); Basophils % (auto) 0.1 %; Hematocrit (blood only) 47.6 % (42-52); Hemoglobin 16.3 g/dL (14.0-18.0); Immature Granulocytes # (auto) 0.03 K/uL (0.00-0.02); Immature Granulocytes % (auto) 0.3 %; Lymphocytes # (auto) 1.91 K/uL (1.2-3.4); Lymphocytes % (auto) 19.8 %; Mean Corpuscular Hemoglobin 29.7 pg (25-34); Mean Corpuscular Hgb Conc 34.2 g/dL (32-36); Mean Corpuscular Volume 86.9 fL (80-100); Mean Platelet Volume 11.1 fL (7.4-10.4); Monocytes # (auto) 0.08 K/uL (0.11-0.59); Monocytes % (auto) 0.8 %; Neutrophils # (auto) 7.64 K/uL (1.4-6.5); Platelet Count 119 K/uL (130-400); RDW Coefficient of Variation 13.6 % (11.5-14.5); RDW Standard Deviation 43.4 fL (36.4-46.3); Red Blood Count 5.48 M/uL (4.7-6.1); White Blood Count 9.67 K/uL (4.8-10.8)
[2021-03-10 08:08] LABS: Albumin Globulin Ratio 0.5 (0.9-2); Albumin Level 2.5 gm/dl (3.4-5.0); BUN Creatinine Ratio 33.8 (10-20); Calcium 8.8 mg/dl (8.5-10.1); Creatinine Clr Calc Pharmacy 128.5 ml/min; Est GFR (African American) 118.3 ml/min; Est GFR (Non-African American) 102.1 ml/min; Globulin 4.9 gm/dl (2.5-4.0); Potassium 4.6 mmol/L (3.5-5.1); Total Protein 7.4 gm/dl (6.4-8.2)
[2021-03-10] MEDS: BUDESONIDE 0.5 MG/2 ML VIAL (PULMICORT) NEB SCH ×2 (08:08→20:12)
[2021-03-10] MEDS: lisinopril 40 MG TAB PO SCH (08:49)
[2021-03-10] MEDS: FUROSEMIDE 40 MG/4 ML VIAL IV SCH (08:50)
[2021-03-10] MEDS: POTASSIUM CHLORIDE CRTAB 20 MEQ TABCR PO SCH (08:50)
[2021-03-10] MEDS: dexAMETHasone 20 MG in SODIUM CHLORIDE 0.9% 50 ML IV SCH (08:50)
[2021-03-10] MEDS: ENOXAPARIN INJ 60 MG/0.6 ML SYR SQ SCH ×2 (08:50→21:16)
[2021-03-10] MEDS: INSULIN HUMAN NPH SC SCH (08:52)
[2021-03-10] MEDS: INSULIN ASPART 100 UNITS/ML 3 ML PEN SC SCH ×4 (08:52→21:16)
[2021-03-10] MEDS ORDERED: INSULIN GLARGINE SOLOSTAR 100 UNITS/ML 3 ML PEN SC SCH (09:00)
--- NOTE | 2021-03-10 10:26 | Pulmonology Progress Note ---
Date of Service March 10, 2021 Assessment & Plan (1) Acute respiratory failure due to COVID-19: (2) Pneumonia due to COVID-19 virus: (3) Obesity: Plan: Impression: 50-year-old inmate hospitalized since 02/27 with breakthrough Covid. He has improved and is now having decreasing oxygen requirements. Recommendations: 1. Acute hypoxemic respiratory failure: Patient appears relatively comfortable today despite his high oxygen requirement. His chest x-ray demonstrates persistent parenchymal densities. Continue to wean oxygen as tolerated. May need to transition between CPAP and high flow oxygen therapy. Recommend the patient continue to try to self proning is much as possible. Continue Lasix daily. No additional interventions recommended currently. 2. Covid pneumonitis: COVID-19 PCR positive 02/27/2021, CRP 2.06 --> 6.43, Procalcitonin 0.23--> 0.09. Patient is currently on dexamethasone for late- phase post ARDS with 20 mg a day for 5 days followed by 10 mg a day for 5 days. There is an increased risk of infectious complications associated with this with the patient appears relatively stagnant currently. 3. DVT prophylaxis: Continue enoxaparin. Patient currently on 60 mg subcutaneously every 12 hours. 4. Management the patient's other medical issues per primary service Patient's oxygen requirement has decreased over the last 48 hours. He appears to be trending in an appropriate direction. Pulmonary will sign off at this point time. Feel free to contact us with additional questions. Admission and Anticipated Discharge Date Admission Date: February 27, 2021 Subjective Reviewed with bedside nurse. Went in the room to evaluate the patient but he was sleeping and elected to not wake him up. He is in the lateral decubitus position with improvement in his oxygen requirement overnight Review of Systems Review of Systems: Deferred as the patient is sleepy Physical Exam Physical Exam: Deferred due to patient sleeping. His respirations appear unlabored and his oxygen requirement is decreased Results & Data Results & Data ([facility]) Vital Signs (Past 12 Hours) Vital Signs Temp Pulse Resp BP Pulse Ox 03/10/21 08:08 66 20 91 03/10/21 07:52 36.8 C 74 18 109/76 92 03/10/21 04:43 36.6 C 90 18 119/79 92 03/10/21 04:38 87 26 H 91 03/10/21 00:15 37.0 C 76 16 112/62 93 03/09/21 22:51 81 20 91 Laboratory Results 03/10/21 06:58 03/10/21 06:58 Diagnostic Findings No new imaging PG Care Time/CCT Total # of Minutes Spent Total Time Spent with Patient: Total time spent is greater than 50% in coordination of care (as documented) at patient's floor/unit and/or counseling patient: Coding Level of Care Code 50794 Subseq Hosp Care Lvl 2 Diagnoses Acute respiratory failure due to COVID-19 U07.1; J96.00 Pneumonia due to COVID-19 virus U07.1; J12.82 Obesity E66.9
--- NOTE | 2021-03-10 14:45 | Pharmacy Report ---
Pharmacy Glycemic Short Note 2 - Date of Service March 10, 2021 - Glycemic Short BSG Results (Last 24 hours): 03/09/21 03/09/21 03/10/21 16:37 20:35 06:58 Glucose 83 POC Glucose 255 H 225 H 03/10/21 03/10/21 07:26 13:07 Glucose POC Glucose 82 216 H OUTPATIENT ANTIDIABETIC REGIMEN: * uncertain * A1c = 11.1% 02/28/21 ASSESSMENT: 03/10: * BSGs persistently elevated yesterday * Received 214 units of insulin (70 units of NPH, 60 units of Lantus, and 84 units of Novolog) * Continues on dexamethasone 20 mg IV daily - continue NPH * In light of persistent BSG elevation, will tighten carb ratio to 1 today * Lunch BSG elevated, but after further review it was determined that incorrect dose of Novolog given this morning (wrong carb ratio) 03/08: * Patient required 258 units of insulin yesterday, (60 units of lantus, 60 units of NPH + 138 units of correctional/prandial) * BSGs have been downtrending over the past two days, will loosen carb ratio but slightly increase NPH * Will slightly reduce lantus scale as fasting has also downtrended. * Dex day #9, regimen will need re-evaluated if dexamethasone discontinued 02/28 * Type 2 diabetic admitted to Telemetry for COVID19 pneumonia with hypoxia * Patient was severely hyperglycemic (without AG acidosis) on admission. Severe hyperglycemia persists despite use of weight-based SQ insulin doses at "severe" stress level. * Will initiate IV insulin drip with current basal insulin order to help quickly and safely bring BSGs to goal. Continuing current basal dose will allow for smoother transition off insulin drip once true needs are better known with current stressors. * Novolog SQ will be given with meals to prevent unnecessary upwards titrations in IV insulin infusion rates PLAN FOR INPATIENT GLYCEMIC CONTROL: * Basal insulin * Lantus 25-30 units SC BID * NPH 70 units SQ daily with dexamethasone 20 mg IV daily * Bolus insulin * NovoLog SQ ACHS * Correction factor: 8 mg/dl/unit * Nutritional / Prandial insulin per carb ratio of 1 unit per 1 grams CHO consumed PLAN FOR DISCHARGE: * to be determined once steroids lowered/discontinued
--- NOTE | 2021-03-10 18:00 | Hospitalist Progress Note ---
Date of Service March 10, 2021 Assessment & Plan (1) Acute respiratory failure due to COVID-19: Plan: Progressed infiltrates on most recent CXR. At one point required BIPAP, but is now remaining on Vapotherm. Encouraged to prone but he is hesitant. Cont higher dose dexamethasone, 20mg IV daily. Not a candidate for baricitinib at this time or any other immunosuppressive therapy. Titrate per pulmonology and per respiratory therapy based on needs. Remains net negative with respect to fluid balance. (2) Pneumonia due to COVID-19 virus: Plan: Cont plan as above. (3) DMII (diabetes mellitus, type 2): Plan: HbA1C 11 Poorly controlled Continue present insulin Glycemic pharmacist consulted with overall glycemic picture well controlled. (4) HTN (hypertension): Plan: borderline hypotension. Decreased lisinopril to 10mg daily (5) Asthma: Plan: chronic, stable, no wheezing. (6) Depression: Plan: Continue Abilify, mirtazapine per home regimen. (7) DVT prophylaxis: Plan: Lovenox SQ Full code Dispo-PCU, notably patient is incarcerated. Mallika Brown DO [facility] Hospitalist Admission and Anticipated Discharge Date Admission Date: February 27, 2021 Subjective 50 yo incarcerated diabetic man presents with hypoxia and respiratory symptoms 2/2 covid pneumonia remains on hi flow oxygen support denies fevers, chills, n/v or pain or other issues reports he feels his breathing is improved declines to prone. Review of Systems Review of Systems: All systems were reviewed and negative except as indicated in subjective above. Physical Exam Physical Exam: CONSTITUTIONAL: WNWD, vitals as above, NAD. EYES: normal conjunctivae, no scleral icterus ENT: external ear and nose normal, MMM NECK: trachea midline RESPIRATORY: +crackles and diminished breath sounds on the right base, vapotherm in place. CARDIOVASCULAR: regular rate and rhythm, S1 and 2 heard without murmurs, gallops or rubs, no JVD, no peripheral edema CHEST: inspection of chest was normal GASTROINTESTINAL: soft, nontender, ND, no guarding MUSCULOSKELETAL: strength 5/5 throughout, head is normocephalic and atraumatic SKIN: warm and dry, extensive tattoos NEUROLOGIC: CN 2-12 grossly intact, normal cognition, normal speech, no tremor PSYCHIATRIC: alert cooperative and answering questions appropriately. Results & Data Results & Data ([facility]) Vital Signs (Past 12 Hours) Vital Signs Temp Pulse Pulse Resp BP Pulse Ox 03/10/21 15:45 36.7 C 87 18 91/46 L 89 L 03/10/21 14:12 78 19 91 03/10/21 12:10 37.1 C 77 16 106/66 90 03/10/21 11:11 77 18 92 03/10/21 08:08 66 20 91 03/10/21 07:52 36.8 C 74 18 109/76 92 Laboratory Results Short CBC 03/10/21 Range/Units 06:58 WBC 9.67 (4.8-10.8) K/uL Hgb 16.3 (14.0-18.0) g/dL Hct 47.6 (42-52) % Plt Count 119 L (130-400) K/uL BMP 03/10/21 06:58 Sodium 135 L Potassium 4.6 Chloride 103 Carbon Dioxide 25 BUN 29 H Creatinine 0.84 Glucose 83 Calcium 8.8 Liver Function 03/10/21 Range/Units 06:58 Total Bilirubin 1.0 (0.2-1) mg/dl AST 30 (15-37) U/L ALT 65 (12-78) U/L Alkaline Phosphatase 63 (45-117) U/L Albumin 2.5 L (3.4-5.0) gm/dl Medications Administered Current Inpatient Medications Acetaminophen (Acetaminophen 325 Mg Tab) 650 mg PO Q4H PRN PRN Reason: Pain or Fever Stop: 03/29/21 15:52 Last Admin: 03/08/21 17:47 Dose: 650 mg Documented by: Aripiprazole (Aripiprazole 15 Mg Tab) 15 mg PO HS PITO Stop: 03/30/21 20:59 Last Admin: 03/09/21 20:44 Dose: 15 mg Documented by: Budesonide (Budesonide 0.5 Mg/2 Ml Vial (Pulmicort)) 0.5 mg NEB BIDR PITO Stop: 04/03/21 09:44 Last Admin: 03/10/21 08:08 Dose: 0.5 mg Documented by: Dextrose (Dextrose 50% 50 Ml Syringe) 25 - 50 ml IV UD PRN; Protocol PRN Reason: Hypoglycemia Protocol Stop: 03/29/21 15:52 Enoxaparin Sodium (Enoxaparin Inj 60 Mg/0.6 Ml Syr) 60 mg SQ Q12 PITO Stop: 04/04/21 20:59 Last Admin: 03/10/21 08:50 Dose: 60 mg Documented by: Furosemide (Furosemide 40 Mg/4 Ml Vial) 40 mg IV Q24H [facility] Stop: 04/04/21 09:59 Last Admin: 03/10/21 08:50 Dose: 40 mg Documented by: Glucagon (Glucagon For Inj 1 Mg Vial) 1 mg SQ UD PRN; Protocol PRN Reason: Hypoglycemia Protocol Stop: 03/29/21 15:52 Glucose (Glucose 10 Tabs/Tube) 4 - 8 tabs PO UD PRN; Protocol PRN Reason: Hypoglycemia Protocol Stop: 03/29/21 15:52 Glucose (Glucose 40% Gel 15 Gm Tube) 15 - 30 gm PO UD PRN; Protocol PRN Reason: Hypoglycemia Protocol Stop: 03/29/21 15:52 Guaifenesin/Codeine Phosphate (Guaifenesin/Codeine 200mg/20mg 10ml Udc) 10 ml PO Q6H PRN PRN Reason: Cough Stop: 03/29/21 16:25 Last Admin: 03/03/21 12:41 Dose: 10 ml Documented by: Dexamethasone 20 mg/ Sodium (Chloride) 55 mls @ 200 mls/hr IV Q24H [facility] Stop: 03/14/21 08:59 Last Infusion: 03/10/21 09:10 Dose: Infused Documented by: Insulin Aspart (Insulin Aspart 100 Units/Ml 3 Ml Pen) 0 units SC ACHS [facility] Stop: 03/30/21 11:29 Last Admin: 03/10/21 12:05 Dose: 35 units Documented by: Insulin Glargine (Insulin Glargine Solostar 100 Units/Ml 3 Ml Pen) 0 units SC BID [facility]; Protocol Stop: 04/01/21 20:59 Insulin Human NPH (Insulin Human Nph) 70 units SC QAM [facility] Stop: 04/05/21 08:59 Last Admin: 03/10/21 08:52 Dose: 70 units Documented by: Lisinopril (Lisinopril 40 Mg Tab) 40 mg PO DAILY [facility] Stop: 03/31/21 08:59 Last Admin: 03/10/21 08:49 Dose: 40 mg Documented by: Menthol (Cough Drop (Sugar Free) Levon 24 Levon/1 Box) 1 levon BUCCAL PRN PRN PRN Reason: Sore Throat Stop: 04/02/21 05:27 Last Admin: 03/03/21 06:31 Dose: 1 levon Documented by: Mirtazapine (Mirtazapine Soltab 15 Mg) 45 mg PO HS PITO Stop: 03/30/21 20:59 Last Admin: 03/09/21 20:46 Dose: 45 mg Documented by: Miscellaneous (Carbohydrates For Hypoglycemia ) 15 - 30 gm PO UD PRN PRN Reason: Hypoglycemia Protocol Stop: 03/29/21 15:52 Miscellaneous Information (Pharmacy Glycemic Mgmt Consult) 1 ea N/A UD PRN PRN Reason: Consult Stop: 03/30/21 08:16 Ondansetron HCl (Ondansetron Inj 2 Mg/Ml 2 Ml Vial) 4 mg IV Q6H PRN PRN Reason: Nausea Stop: 03/29/21 15:52 Polyethylene Glycol (Polyethylene (Miralax) 17 Gm Pack) 17 gm PO DAILY PRN PRN Reason: Constipation Stop: 03/29/21 15:52 Last Admin: 03/06/21 11:04 Dose: 17 gm Documented by: Potassium Chloride (Potassium Chloride Crtab 20 Meq Tabcr) 20 meq PO QAM PITO Stop: 04/01/21 08:59 Last Admin: 03/10/21 08:50 Dose: 20 meq Documented by: Sodium Chloride (Sodium Chloride 0.65% Na Soln 45 Ml ([place])) 1 sprays NA UD PRN PRN Reason: Dryness Stop: 04/07/21 19:55 Last Admin: 03/08/21 20:32 Dose: 1 sprays Documented by: Tramadol HCl (Tramadol Hcl 50 Mg Tablet) 25 - 50 mg PO Q4H PRN PRN Reason: Pain Stop: 04/02/21 20:37 Last Admin: 03/09/21 00:06 Dose: 50 mg Documented by:
[2021-03-10] MEDS: INSULIN GLARGINE SOLOSTAR 100 UNITS/ML 3 ML PEN SC SCH (21:16)
[2021-03-10] MEDS: ARIPiprazole 15 MG TAB PO SCH (21:16)
[2021-03-10] MEDS: MIRTAZAPINE SOLTAB 15 MG PO SCH (21:17)
[2021-03-11] MEDS: BUDESONIDE 0.5 MG/2 ML VIAL (PULMICORT) NEB SCH ×2 (05:42→17:46)
[2021-03-11 06:26] LABS: Hematocrit (blood only) 50.2 % (42-52); Hemoglobin 17.3 g/dL (14.0-18.0); Mean Corpuscular Hemoglobin 29.9 pg (25-34); Mean Corpuscular Hgb Conc 34.5 g/dL (32-36); Mean Corpuscular Volume 86.9 fL (80-100); Mean Platelet Volume 10.6 fL (7.4-10.4); Platelet Count 129 K/uL (130-400); RDW Coefficient of Variation 13.6 % (11.5-14.5); RDW Standard Deviation 42.6 fL (36.4-46.3); Red Blood Count 5.78 M/uL (4.7-6.1); White Blood Count 13.91 K/uL (4.8-10.8)
[2021-03-11 06:51] LABS: BUN Creatinine Ratio 38.5 (10-20); C Reactive Protein 0.72 mg/dl (0-0.29); Calcium 8.9 mg/dl (8.5-10.1); Creatinine Clr Calc Pharmacy 142.1 ml/min; Est GFR (African American) 123.3 ml/min; Est GFR (Non-African American) 106.4 ml/min; Potassium 4.3 mmol/L (3.5-5.1)
[2021-03-11] MEDS: lisinopril 10 MG TAB PO SCH (08:50)
[2021-03-11] MEDS: POTASSIUM CHLORIDE CRTAB 20 MEQ TABCR PO SCH (08:50)
[2021-03-11] MEDS ORDERED: INSULIN HUMAN NPH SC SCH (09:00)
[2021-03-11] MEDS: INSULIN ASPART 100 UNITS/ML 3 ML PEN SC SCH ×4 (09:00→20:53)
[2021-03-11] MEDS: ENOXAPARIN INJ 60 MG/0.6 ML SYR SQ SCH ×2 (09:02→20:53)
[2021-03-11] MEDS: FUROSEMIDE 40 MG/4 ML VIAL IV SCH (09:03)
[2021-03-11] MEDS: INSULIN GLARGINE SOLOSTAR 100 UNITS/ML 3 ML PEN SC SCH (09:08)
[2021-03-11] MEDS: dexAMETHasone 20 MG in SODIUM CHLORIDE 0.9% 50 ML IV SCH (09:18)
--- NOTE | 2021-03-11 09:58 | Pharmacy Report ---
Pharmacy Glycemic Short Note 2 - Date of Service March 11, 2021 - Glycemic Short BSG Results (Last 24 hours): 03/10/21 03/10/21 03/10/21 13:07 16:23 20:16 Glucose POC Glucose 216 H 216 H 148 H 03/11/21 03/11/21 06:06 08:01 Glucose 66 L POC Glucose 76 OUTPATIENT ANTIDIABETIC REGIMEN: * uncertain * A1c = 11.1% 02/28/21 ASSESSMENT: 03/11/21 * Patient's BSGs yesterda were [phone] mg/dL. * Patient received 207 units of insulin with 130 units of basal (60 units of Lantus and 70 units of NPH) plus 77 units of basal insulin. * Fasting today was 76 mg/dL. * Increase NPH to 80 units since BSGs continue to be elevated. * Decrease Lantus since fasting trending downwards. Decrease by ~20% to 50 units daily. Also loosen HS CF as CF of 8 may be overcorrecting him at night. * Continue Novolog. 03/10: * BSGs persistently elevated yesterday * Received 214 units of insulin (70 units of NPH, 60 units of Lantus, and 84 units of Novolog) * Continues on dexamethasone 20 mg IV daily - continue NPH * In light of persistent BSG elevation, will tighten carb ratio to 1 today * Lunch BSG elevated, but after further review it was determined that incorrect dose of Novolog given this morning (wrong carb ratio) 03/08: * Patient required 258 units of insulin yesterday, (60 units of lantus, 60 units of NPH + 138 units of correctional/prandial) * BSGs have been downtrending over the past two days, will loosen carb ratio but slightly increase NPH * Will slightly reduce lantus scale as fasting has also downtrended. * Dex day #9, regimen will need re-evaluated if dexamethasone discontinued 02/28 * Type 2 diabetic admitted to Telemetry for COVID19 pneumonia with hypoxia * Patient was severely hyperglycemic (without AG acidosis) on admission. Severe hyperglycemia persists despite use of weight-based SQ insulin doses at "severe" stress level. * Will initiate IV insulin drip with current basal insulin order to help quickly and safely bring BSGs to goal. Continuing current basal dose will allow for smoother transition off insulin drip once true needs are better known with current stressors. * Novolog SQ will be given with meals to prevent unnecessary upwards titrations in IV insulin infusion rates PLAN FOR INPATIENT GLYCEMIC CONTROL: * Basal insulin * Lantus 25 units SC BID * NPH 80 units SQ daily with dexamethasone 20 mg IV daily * Bolus insulin * NovoLog SQ ACHS * Correction factor: 8 mg/dl/unit (15 mg/dL/unit at night) * Nutritional / Prandial insulin per carb ratio of 1 unit per 1 grams CHO consumed (1 unit per 8 grams CHO consumed at night) PLAN FOR DISCHARGE: * to be determined once steroids lowered/discontinued
--- NOTE | 2021-03-11 14:20 | Hospitalist Progress Note ---
Date of Service March 11, 2021 Assessment & Plan (1) Acute respiratory failure due to COVID-19: Plan: Progressed infiltrates on most recent CXR. At one point required BIPAP, but is now remaining on Vapotherm. Encouraged to prone but he is hesitant. Cont higher dose dexamethasone, 20mg IV daily. Not a candidate for baricitinib at this time or any other immunosuppressive therapy. Titrate per pulmonology and per respiratory therapy based on needs. Remains net negative with respect to fluid balance. Very slow improvement We will continue current management (2) Pneumonia due to COVID-19 virus: Plan: Cont plan as above. (3) DMII (diabetes mellitus, type 2): Plan: HbA1C 11 Poorly controlled Continue present insulin Glycemic pharmacist consulted with overall glycemic picture well controlled. (4) HTN (hypertension): Plan: borderline hypotension. Decreased lisinopril to 10mg daily (5) Asthma: Plan: chronic, stable, no wheezing. (6) Depression: Plan: Continue Abilify, mirtazapine per home regimen. (7) DVT prophylaxis: Plan: Lovenox SQ Full code Dispo-PCU, notably patient is incarcerated. Admission and Anticipated Discharge Date Admission Date: February 27, 2021 Subjective 03/06/2021 The patient was seen and examined in telemetry unit and in the Covid room He complains to have some abdominal pain without any distention, nausea and/or vomiting He has not moved his bowel as of today Does not have any significant respiratory symptoms but has been requiring high flow oxygen to maintain saturation 03/07/2021 The patient was seen and examined in telemetry unit and in the Covid room His condition remains stable but still requiring high flow oxygen to maintain saturation His abdominal pain is stable to but has not had a bowel movement 03/08/2021 The patient was seen and examined in telemetry unit and in the Covid room Remains stable and is still requiring high flow oxygen to maintain saturation Abdominal pain is controlled 03/09/2021 The patient was seen and examined in telemetry unit and in the Covid room He has been feeling much better but still requires high flow oxygen to maintain saturation Abdominal pain is almost gone 03/11/2021 The patient was seen and examined in telemetry unit and in the Covid room He has been feeling little better but he still requires very high flow oxygen to maintain saturation Still has some right lower quadrant pain but bowel has been moving without any nausea and/or vomiting Review of Systems Review of Systems: All systems were reviewed and negative except as indicated in subjective above. Respiratory: Mild to no respiratory symptoms at rest Gastrointestinal: Mild abdominal pain without distention, nausea and or vomiting Physical Exam Physical Exam: Lying in bed comfortably Constitutional: well developed, well nourished, + ill appearing and + morbidly obese Eyes: PERRL, conjunctivae normal, anicteric sclerae ENMT: external ear and nose normal, oropharynx normal Neck: trachea midline, no thyromegaly Respiratory: + cough; no respiratory distress and no labored breathing Auscultation: + diminished lung sounds, + crackles (Minimal crackles at the bases) and + wheezes Cardiovascular: Rate/Rhythm: regular rate, regular rhythm and + tachycardic Heart Sounds: normal S1 and normal S2; no murmur Extremities: + edema (Trace edema bilaterally) Gastrointestinal (Abdomen): Inspection/Auscultation: normal bowel sounds; abdomen not distended Percussion/Palpation: abdomen soft; abdomen nontender Musculoskeletal: No acute arthritis in any joint Neurologic: Alert, awake and oriented x3. No focal sensory or no motor deficit appreciated Psychiatric: A+Ox3, euthymic affect Lymphatic: no cervical or axillary lymphadenopathy Results & Data Results & Data ([facility]) Vital Signs (Past 12 Hours) Vital Signs Temp Pulse Pulse Resp BP Pulse Ox 03/11/21 11:33 103 H 20 94 03/11/21 11:18 36.6 C 100 H 17 102/67 95 03/11/21 07:54 77 03/11/21 07:46 36.8 C 92 H 23 109/57 L 96 03/11/21 05:43 91 H 24 93 03/11/21 02:57 36.9 C 69 20 110/57 L 97 Laboratory Results Short CBC 03/11/21 Range/Units 06:06 WBC 13.91 H (4.8-10.8) K/uL Hgb 17.3 (14.0-18.0) g/dL Hct 50.2 (42-52) % Plt Count 129 L (130-400) K/uL BMP 03/11/21 06:06 Sodium 133 L Potassium 4.3 Chloride 102 Carbon Dioxide 22 BUN 29 H Creatinine 0.76 Glucose 66 L Calcium 8.9 Medications Administered Current Inpatient Medications Acetaminophen (Acetaminophen 325 Mg Tab) 650 mg PO Q4H PRN PRN Reason: Pain or Fever Stop: 03/29/21 15:52 Last Admin: 03/08/21 17:47 Dose: 650 mg Documented by: Aripiprazole (Aripiprazole 15 Mg Tab) 15 mg PO HS PITO Stop: 03/30/21 20:59 Last Admin: 03/10/21 21:16 Dose: 15 mg Documented by: Budesonide (Budesonide 0.5 Mg/2 Ml Vial (Pulmicort)) 0.5 mg NEB BIDR PITO Stop: 04/03/21 09:44 Last Admin: 03/11/21 05:42 Dose: 0.5 mg Documented by: Dextrose (Dextrose 50% 50 Ml Syringe) 25 - 50 ml IV UD PRN; Protocol PRN Reason: Hypoglycemia Protocol Stop: 03/29/21 15:52 Enoxaparin Sodium (Enoxaparin Inj 60 Mg/0.6 Ml Syr) 60 mg SQ Q12 PITO Stop: 04/04/21 20:59 Last Admin: 03/11/21 09:02 Dose: 60 mg Documented by: Furosemide (Furosemide 40 Mg/4 Ml Vial) 40 mg IV Q24H PITO Stop: 04/04/21 09:59 Last Admin: 03/11/21 09:03 Dose: 40 mg Documented by: Glucagon (Glucagon For Inj 1 Mg Vial) 1 mg SQ UD PRN; Protocol PRN Reason: Hypoglycemia Protocol Stop: 03/29/21 15:52 Glucose (Glucose 10 Tabs/Tube) 4 - 8 tabs PO UD PRN; Protocol PRN Reason: Hypoglycemia Protocol Stop: 03/29/21 15:52 Glucose (Glucose 40% Gel 15 Gm Tube) 15 - 30 gm PO UD PRN; Protocol PRN Reason: Hypoglycemia Protocol Stop: 03/29/21 15:52 Guaifenesin/Codeine Phosphate (Guaifenesin/Codeine 200mg/20mg 10ml Udc) 10 ml PO Q6H PRN PRN Reason: Cough Stop: 03/29/21 16:25 Last Admin: 03/03/21 12:41 Dose: 10 ml Documented by: Dexamethasone 20 mg/ Sodium (Chloride) 55 mls @ 200 mls/hr IV Q24H PITO Stop: 03/14/21 08:59 Last Infusion: 03/11/21 09:45 Dose: Infused Documented by: Insulin Aspart (Insulin Aspart 100 Units/Ml 3 Ml Pen) 0 units SC AC [facility] Stop: 04/10/21 11:29 Last Admin: 03/11/21 12:55 Dose: 36 units Documented by: Insulin Aspart (Insulin Aspart 100 Units/Ml 3 Ml Pen) 0 units SC [facility] Stop: 04/10/21 20:59 Insulin Glargine (Insulin Glargine Solostar 100 Units/Ml 3 Ml Pen) 25 units SC BID [facility]; Protocol Stop: 04/10/21 20:59 Insulin Human NPH (Insulin Human Nph) [facility] Stop: 04/10/21 08:59 Last Admin: 03/11/21 09:09 Dose: 80 units Documented by: Lisinopril (Lisinopril 10 Mg Tab) 10 mg PO DAILY [facility] Stop: 04/10/21 08:59 Last Admin: 03/11/21 08:50 Dose: 10 mg Documented by: Menthol (Cough Drop (Sugar Free) Levon 24 Levon/1 Box) 1 levon BUCCAL PRN PRN PRN Reason: Sore Throat Stop: 04/02/21 05:27 Last Admin: 03/03/21 06:31 Dose: 1 levon Documented by: Mirtazapine (Mirtazapine Soltab 15 Mg) 45 mg PO [facility] Stop: 03/30/21 20:59 Last Admin: 03/10/21 21:17 Dose: 45 mg Documented by: Miscellaneous (Carbohydrates For Hypoglycemia ) 15 - 30 gm PO UD PRN PRN Reason: Hypoglycemia Protocol Stop: 03/29/21 15:52 Miscellaneous Information (Pharmacy Glycemic Mgmt Consult) 1 ea N/A UD PRN PRN Reason: Consult Stop: 03/30/21 08:16 Ondansetron HCl (Ondansetron Inj 2 Mg/Ml 2 Ml Vial) 4 mg IV Q6H PRN PRN Reason: Nausea Stop: 03/29/21 15:52 Polyethylene Glycol (Polyethylene (Miralax) 17 Gm Pack) 17 gm PO DAILY PRN PRN Reason: Constipation Stop: 03/29/21 15:52 Last Admin: 03/06/21 11:04 Dose: 17 gm Documented by: Potassium Chloride (Potassium Chloride Crtab 20 Meq Tabcr) 20 meq PO QAM PITO Stop: 04/01/21 08:59 Last Admin: 03/11/21 08:50 Dose: 20 meq Documented by: Sodium Chloride (Sodium Chloride 0.65% Na Soln 45 Ml ([place])) 1 sprays NA UD PRN PRN Reason: Dryness Stop: 04/07/21 19:55 Last Admin: 03/08/21 20:32 Dose: 1 sprays Documented by: Tramadol HCl (Tramadol Hcl 50 Mg Tablet) 25 - 50 mg PO Q4H PRN PRN Reason: Pain Stop: 04/02/21 20:37 Last Admin: 03/09/21 00:06 Dose: 50 mg Documented by:
[2021-03-11] MEDS: ARIPiprazole 15 MG TAB PO SCH (20:53)
[2021-03-11] MEDS: MIRTAZAPINE SOLTAB 15 MG PO SCH (20:53)
[2021-03-11] MEDS ORDERED: INSULIN GLARGINE SOLOSTAR 100 UNITS/ML 3 ML PEN SC SCH (21:00)
[2021-03-11] MEDS ORDERED: INSULIN GLARGINE SOLOSTAR 100 UNITS/ML 3 ML PEN SC ONE (21:00)
[2021-03-12] MEDS: BUDESONIDE 0.5 MG/2 ML VIAL (PULMICORT) NEB SCH ×2 (07:07→18:58)
[2021-03-12] MEDS: INSULIN ASPART 100 UNITS/ML 3 ML PEN SC SCH ×4 (08:39→22:06)
[2021-03-12] MEDS: lisinopril 10 MG TAB PO SCH (08:40)
[2021-03-12] MEDS: ENOXAPARIN INJ 60 MG/0.6 ML SYR SQ SCH ×2 (08:40→22:06)
[2021-03-12] MEDS: POTASSIUM CHLORIDE CRTAB 20 MEQ TABCR PO SCH (08:40)
[2021-03-12] MEDS: dexAMETHasone 20 MG in SODIUM CHLORIDE 0.9% 50 ML IV SCH (08:54)
[2021-03-12] MEDS ORDERED: INSULIN HUMAN NPH SC SCH (09:00)
[2021-03-12] MEDS: FUROSEMIDE 40 MG/4 ML VIAL IV SCH (09:28)
--- NOTE | 2021-03-12 13:34 | Pharmacy Report ---
Pharmacy Glycemic Short Note 2 - Date of Service March 12, 2021 - Glycemic Short BSG Results (Last 24 hours): 03/11/21 03/11/21 03/11/21 16:19 16:20 17:06 POC Glucose 64 L* 65 L* 117 H 03/11/21 03/11/21 03/12/21 20:07 20:59 08:11 POC Glucose 65 L* 85 64 L* 03/12/21 03/12/21 03/12/21 08:12 08:33 11:46 POC Glucose 65 L* 86 104 H OUTPATIENT ANTIDIABETIC REGIMEN: * uncertain * A1c = 11.1% 02/28/21 ASSESSMENT: 03/12/21 * Patient's BSGs yesterday were 27-651-09-65 mg/dL. * Patient received 181 units of insulin with 105 units of basal (25 units of Lantus and 80 units of NPH) plus 76 units of basal insulin. * Fasting today was 64 mg/dL. * Held all basal due to prolonged hypoglycemia plus patient not eating. Expect that basal excess will cover patient through today. Re-evaluate tomorrow. * Continue Novolog. 03/11/21 * Patient's BSGs yesterda were 37-112-225-148 mg/dL. * Patient received 207 units of insulin with 130 units of basal (60 units of Lantus and 70 units of NPH) plus 77 units of basal insulin. * Fasting today was 76 mg/dL. * Increase NPH to 80 units since BSGs continue to be elevated. * Decrease Lantus since fasting trending downwards. Decrease by ~20% to 50 units daily. Also loosen HS CF as CF of 8 may be overcorrecting him at night. * Continue Novolog. 03/10: * BSGs persistently elevated yesterday * Received 214 units of insulin (70 units of NPH, 60 units of Lantus, and 84 units of Novolog) * Continues on dexamethasone 20 mg IV daily - continue NPH * In light of persistent BSG elevation, will tighten carb ratio to 1 today * Lunch BSG elevated, but after further review it was determined that incorrect dose of Novolog given this morning (wrong carb ratio) 03/08: * Patient required 258 units of insulin yesterday, (60 units of lantus, 60 units of NPH + 138 units of correctional/prandial) * BSGs have been downtrending over the past two days, will loosen carb ratio but slightly increase NPH * Will slightly reduce lantus scale as fasting has also downtrended. * Dex day #9, regimen will need re-evaluated if dexamethasone discontinued 02/28 * Type 2 diabetic admitted to Telemetry for COVID19 pneumonia with hypoxia * Patient was severely hyperglycemic (without AG acidosis) on admission. Severe hyperglycemia persists despite use of weight-based SQ insulin doses at "severe" stress level. * Will initiate IV insulin drip with current basal insulin order to help quickly and safely bring BSGs to goal. Continuing current basal dose will allow for smoother transition off insulin drip once true needs are better known with current stressors. * Novolog SQ will be given with meals to prevent unnecessary upwards titrations in IV insulin infusion rates PLAN FOR INPATIENT GLYCEMIC CONTROL: * Basal insulin- hold * Bolus insulin * NovoLog SQ ACHS * Correction factor: 8 mg/dl/unit (15 mg/dL/unit at night) * Nutritional / Prandial insulin per carb ratio of 1 unit per 1 grams CHO consumed (1 unit per 8 grams CHO consumed at night) PLAN FOR DISCHARGE: * to be determined once steroids lowered/discontinued
--- NOTE | 2021-03-12 14:39 | Hospitalist Progress Note ---
Date of Service March 12, 2021 Assessment & Plan (1) Acute respiratory failure due to COVID-19: Plan: Progressed infiltrates on most recent CXR. At one point required BIPAP, but is now remaining on Vapotherm. Encouraged to prone but he is hesitant. Cont higher dose dexamethasone, 20mg IV daily. Not a candidate for baricitinib at this time or any other immunosuppressive therapy. Titrate per pulmonology and per respiratory therapy based on needs. Remains net negative with respect to fluid balance. Very slow improvement Clinically a little improvement and is requiring 60% 60 L of oxygen to maintain saturation (2) Pneumonia due to COVID-19 virus: Plan: Cont plan as above. (3) DMII (diabetes mellitus, type 2): Plan: HbA1C 11 Poorly controlled Continue present insulin Glycemic pharmacist consulted with overall glycemic picture well controlled. (4) HTN (hypertension): Plan: borderline hypotension. Decreased lisinopril to 10mg daily Blood pressure remains stable (5) Asthma: Plan: chronic, stable, no wheezing. May be complicating the Covid situation (6) Depression: Plan: Continue Abilify, mirtazapine per home regimen. (7) DVT prophylaxis: Plan: Lovenox SQ Full code Dispo-PCU, notably patient is incarcerated. Admission and Anticipated Discharge Date Admission Date: February 27, 2021 Subjective 03/06/2021 The patient was seen and examined in telemetry unit and in the Covid room He complains to have some abdominal pain without any distention, nausea and/or vomiting He has not moved his bowel as of today Does not have any significant respiratory symptoms but has been requiring high flow oxygen to maintain saturation 03/07/2021 The patient was seen and examined in telemetry unit and in the Covid room His condition remains stable but still requiring high flow oxygen to maintain saturation His abdominal pain is stable to but has not had a bowel movement 03/08/2021 The patient was seen and examined in telemetry unit and in the Covid room Remains stable and is still requiring high flow oxygen to maintain saturation Abdominal pain is controlled 03/09/2021 The patient was seen and examined in telemetry unit and in the Covid room He has been feeling much better but still requires high flow oxygen to maintain saturation Abdominal pain is almost gone 03/11/2021 The patient was seen and examined in telemetry unit and in the Covid room He has been feeling little better but he still requires very high flow oxygen to maintain saturation Still has some right lower quadrant pain but bowel has been moving without any nausea and/or vomiting 03/12/2021 The patient was seen and examined in telemetry unit and in the Covid room He has been feeling a little bit better but is still requiring very high flow oxygen to maintain saturation Abdominal pain is much better Review of Systems Review of Systems: All systems were reviewed and negative except as indicated in subjective above. Respiratory: Mild to no respiratory symptoms at rest Gastrointestinal: Mild abdominal pain without distention, nausea and or vomiting Physical Exam Physical Exam: Lying in bed comfortably Constitutional: well developed, well nourished, + ill appearing and + morbidly obese Eyes: PERRL, conjunctivae normal, anicteric sclerae ENMT: external ear and nose normal, oropharynx normal Neck: trachea midline, no thyromegaly Respiratory: + cough; no respiratory distress and no labored breathing Auscultation: + diminished lung sounds, + crackles (Minimal crackles at the bases) and + wheezes Cardiovascular: Rate/Rhythm: regular rate, regular rhythm and + tachycardic Heart Sounds: normal S1 and normal S2; no murmur Extremities: + edema (Trace edema bilaterally) Gastrointestinal (Abdomen): Inspection/Auscultation: normal bowel sounds; abdomen not distended Percussion/Palpation: abdomen soft; abdomen nontender Musculoskeletal: No acute arthritis in any joint Neurologic: Alert, awake and oriented x3 . Generally weak and lethargic Psychiatric: A+Ox3, euthymic affect Lymphatic: no cervical or axillary lymphadenopathy Results & Data Results & Data ([facility]) Vital Signs (Past 12 Hours) Vital Signs Temp Pulse Resp BP Pulse Ox 03/12/21 11:47 36.8 C 79 22 119/75 95 03/12/21 11:23 80 18 94 03/12/21 07:28 36.8 C 84 22 125/67 94 03/12/21 07:07 96 H 26 H 94 03/12/21 03:06 91 H 20 95 03/12/21 02:53 36.9 C 79 20 99/69 L 95 Medications Administered Current Inpatient Medications Acetaminophen (Acetaminophen 325 Mg Tab) 650 mg PO Q4H PRN PRN Reason: Pain or Fever Stop: 03/29/21 15:52 Last Admin: 03/08/21 17:47 Dose: 650 mg Documented by: Aripiprazole (Aripiprazole 15 Mg Tab) 15 mg PO HS PITO Stop: 03/30/21 20:59 Last Admin: 03/11/21 20:53 Dose: 15 mg Documented by: Budesonide (Budesonide 0.5 Mg/2 Ml Vial (Pulmicort)) 0.5 mg NEB BIDR PITO Stop: 04/03/21 09:44 Last Admin: 03/12/21 07:07 Dose: 0.5 mg Documented by: Dextrose (Dextrose 50% 50 Ml Syringe) 25 - 50 ml IV UD PRN; Protocol PRN Reason: Hypoglycemia Protocol Stop: 03/29/21 15:52 Enoxaparin Sodium (Enoxaparin Inj 60 Mg/0.6 Ml Syr) 60 mg SQ Q12 PITO Stop: 04/04/21 20:59 Last Admin: 03/12/21 08:40 Dose: 60 mg Documented by: Furosemide (Furosemide 40 Mg/4 Ml Vial) 40 mg IV Q24H PITO Stop: 04/04/21 09:59 Last Admin: 03/12/21 09:28 Dose: 40 mg Documented by: Glucagon (Glucagon For Inj 1 Mg Vial) 1 mg SQ UD PRN; Protocol PRN Reason: Hypoglycemia Protocol Stop: 03/29/21 15:52 Glucose (Glucose 10 Tabs/Tube) 4 - 8 tabs PO UD PRN; Protocol PRN Reason: Hypoglycemia Protocol Stop: 03/29/21 15:52 Glucose (Glucose 40% Gel 15 Gm Tube) 15 - 30 gm PO UD PRN; Protocol PRN Reason: Hypoglycemia Protocol Stop: 03/29/21 15:52 Guaifenesin/Codeine Phosphate (Guaifenesin/Codeine 200mg/20mg 10ml Udc) 10 ml PO Q6H PRN PRN Reason: Cough Stop: 03/29/21 16:25 Last Admin: 03/03/21 12:41 Dose: 10 ml Documented by: Dexamethasone 20 mg/ Sodium (Chloride) 55 mls @ 200 mls/hr IV Q24H PITO Stop: 03/14/21 08:59 Last Infusion: 03/12/21 09:26 Dose: Infused Documented by: Insulin Aspart (Insulin Aspart 100 Units/Ml 3 Ml Pen) 0 units SC AC PITO Stop: 04/10/21 11:29 Last Admin: 03/12/21 12:50 Dose: 17 units Documented by: Insulin Aspart (Insulin Aspart 100 Units/Ml 3 Ml Pen) 0 units SC HS [facility] Stop: 04/10/21 20:59 Last Admin: 03/11/21 20:53 Dose: Not Given Documented by: Lisinopril (Lisinopril 10 Mg Tab) 10 mg PO DAILY PITO Stop: 04/10/21 08:59 Last Admin: 03/12/21 08:40 Dose: 10 mg Documented by: Menthol (Cough Drop (Sugar Free) Levon 24 Levon/1 Box) 1 levon BUCCAL PRN PRN PRN Reason: Sore Throat Stop: 04/02/21 05:27 Last Admin: 03/03/21 06:31 Dose: 1 levon Documented by: Mirtazapine (Mirtazapine Soltab 15 Mg) 45 mg PO HS [facility] Stop: 03/30/21 20:59 Last Admin: 03/11/21 20:53 Dose: 45 mg Documented by: Miscellaneous (Carbohydrates For Hypoglycemia ) 15 - 30 gm PO UD PRN PRN Reason: Hypoglycemia Protocol Stop: 03/29/21 15:52 Last Admin: 03/11/21 20:13 Dose: 15 gm Documented by: Miscellaneous Information (Pharmacy Glycemic Mgmt Consult) 1 ea N/A UD PRN PRN Reason: Consult Stop: 03/30/21 08:16 Ondansetron HCl (Ondansetron Inj 2 Mg/Ml 2 Ml Vial) 4 mg IV Q6H PRN PRN Reason: Nausea Stop: 03/29/21 15:52 Polyethylene Glycol (Polyethylene (Miralax) 17 Gm Pack) 17 gm PO DAILY PRN PRN Reason: Constipation Stop: 03/29/21 15:52 Last Admin: 03/06/21 11:04 Dose: 17 gm Documented by: Potassium Chloride (Potassium Chloride Crtab 20 Meq Tabcr) 20 meq PO QAM PITO Stop: 04/01/21 08:59 Last Admin: 03/12/21 08:40 Dose: 20 meq Documented by: Sodium Chloride (Sodium Chloride 0.65% Na Soln 45 Ml ([place])) 1 sprays NA UD PRN PRN Reason: Dryness Stop: 04/07/21 19:55 Last Admin: 03/08/21 20:32 Dose: 1 sprays Documented by: Tramadol HCl (Tramadol Hcl 50 Mg Tablet) 25 - 50 mg PO Q4H PRN PRN Reason: Pain Stop: 04/02/21 20:37 Last Admin: 03/09/21 00:06 Dose: 50 mg Documented by:
[2021-03-12] MEDS: ARIPiprazole 15 MG TAB PO SCH (22:06)
[2021-03-12] MEDS: MIRTAZAPINE SOLTAB 15 MG PO SCH (22:07)
[2021-03-13] MEDS: BUDESONIDE 0.5 MG/2 ML VIAL (PULMICORT) NEB SCH ×2 (07:16→22:14)
[2021-03-13 07:17] LABS: Creatinine Clr Calc Pharmacy 133.6 ml/min; Est GFR (African American) 120.7 ml/min; Est GFR (Non-African American) 104.2 ml/min
[2021-03-13] MEDS: lisinopril 10 MG TAB PO SCH (07:59)
[2021-03-13] MEDS: POTASSIUM CHLORIDE CRTAB 20 MEQ TABCR PO SCH (08:29)
[2021-03-13] MEDS: ENOXAPARIN INJ 60 MG/0.6 ML SYR SQ SCH (08:31)
[2021-03-13] MEDS: FUROSEMIDE 40 MG/4 ML VIAL IV SCH (08:31)
[2021-03-13] MEDS: INSULIN ASPART 100 UNITS/ML 3 ML PEN SC SCH ×4 (08:33→20:57)
[2021-03-13] MEDS: dexAMETHasone 20 MG in SODIUM CHLORIDE 0.9% 50 ML IV SCH (08:39)
[2021-03-13] MEDS ORDERED: INSULIN HUMAN NPH SC SCH (09:00)
--- NOTE | 2021-03-13 14:38 | Pharmacy Report ---
Pharmacy Glycemic Short Note 2 - Date of Service March 13, 2021 - Glycemic Short BSG Results (Last 24 hours): 03/12/21 03/12/21 03/13/21 16:46 20:04 07:37 POC Glucose 145 H 112 H 86 03/13/21 11:42 POC Glucose 195 H OUTPATIENT ANTIDIABETIC REGIMEN: * uncertain * A1c = 11.1% 02/28/21 ASSESSMENT: 03/13 * Fasting BSG 86 this AM - no basal insulin administered in last 24 hrs - substantially less than prior days. Suspect pt received excessive basal insulin doses which accumulated. Anticipate patient's basal needs to increase in the near future however. * Will begin a low dose of NPH this AM as pt still receiving high dose steroid therapy * Will begin less than "low" stress Lantus this evening with plans to utilize Lantus as basal insulin therapy when dexamethasone d/c'd * Novolog CF/CR remain appropriate, but will decrease correctional insulin dose given at HS given tendency to drop BSG overnight 03/12 * Patient's BSGs yesterday were 16-492-27-65 mg/dL. * Patient received 181 units of insulin with 105 units of basal (25 units of Lantus and 80 units of NPH) plus 76 units of basal insulin. * Fasting today was 64 mg/dL. * Held all basal due to prolonged hypoglycemia plus patient not eating. Expect that basal excess will cover patient through today. Re-evaluate tomorrow. * Continue Novolog. PLAN FOR INPATIENT GLYCEMIC CONTROL: * Basal insulin- * NPH 20 units x 1 this AM with IV dexamethasone * Lantus 10 units SQ BID - begin at dinnertime today * Bolus insulin * NovoLog SQ ACHS * Correction factor: 8 mg/dl/unit (15 mg/dL/unit at night and only use if BSG > 180) * Nutritional / Prandial insulin per carb ratio of 1 unit per 2 grams CHO consumed (1 unit per 8 grams CHO consumed at night) PLAN FOR DISCHARGE: * to be determined once steroids lowered/discontinued
--- NOTE | 2021-03-13 15:32 | Hospitalist Progress Note ---
Date of Service March 13, 2021 Assessment & Plan (1) Acute respiratory failure due to COVID-19: Plan: Progressed infiltrates on most recent CXR. At one point required BIPAP, but is now remaining on Vapotherm. Encouraged to prone but he is hesitant. Cont higher dose dexamethasone, 20mg IV daily. Not a candidate for baricitinib at this time or any other immunosuppressive therapy. Titrate per pulmonology and per respiratory therapy based on needs. Remains net negative with respect to fluid balance. Very slow improvement Clinically a little improvement and is requiring 60% 60 L of oxygen to maintain saturation Still requiring high flow oxygen at 45 L with 55% flow Remains stable (2) Pneumonia due to COVID-19 virus: Plan: Cont plan as above. (3) DMII (diabetes mellitus, type 2): Plan: HbA1C 11 Poorly controlled Continue present insulin Glycemic pharmacist consulted with overall glycemic picture well controlled. Has been having low blood sugar the pharmacist has been controlling that (4) HTN (hypertension): Plan: borderline hypotension. Decreased lisinopril to 10mg daily Blood pressure remains stable (5) Asthma: Plan: chronic, stable, no wheezing. May be complicating the Covid situation (6) Depression: Plan: Continue Abilify, mirtazapine per home regimen. (7) DVT prophylaxis: Plan: Lovenox SQ Full code Dispo-PCU, notably patient is incarcerated. Admission and Anticipated Discharge Date Admission Date: February 27, 2021 Subjective 03/06/2021 The patient was seen and examined in telemetry unit and in the Covid room He complains to have some abdominal pain without any distention, nausea and/or vomiting He has not moved his bowel as of today Does not have any significant respiratory symptoms but has been requiring high flow oxygen to maintain saturation 03/07/2021 The patient was seen and examined in telemetry unit and in the Covid room His condition remains stable but still requiring high flow oxygen to maintain saturation His abdominal pain is stable to but has not had a bowel movement 03/08/2021 The patient was seen and examined in telemetry unit and in the Covid room Remains stable and is still requiring high flow oxygen to maintain saturation Abdominal pain is controlled 03/09/2021 The patient was seen and examined in telemetry unit and in the Covid room He has been feeling much better but still requires high flow oxygen to maintain saturation Abdominal pain is almost gone 03/11/2021 The patient was seen and examined in telemetry unit and in the Covid room He has been feeling little better but he still requires very high flow oxygen to maintain saturation Still has some right lower quadrant pain but bowel has been moving without any nausea and/or vomiting 03/12/2021 The patient was seen and examined in telemetry unit and in the Covid room He has been feeling a little bit better but is still requiring very high flow oxygen to maintain saturation Abdominal pain is much better 03/13/2021 The patient was seen and examined in telemetry unit and in the Covid room He has been feeling a little better but is still requiring high flow oxygen to maintain saturation Abdominal pain is gone Review of Systems Review of Systems: All systems were reviewed and negative except as indicated in subjective above. Respiratory: Mild to no respiratory symptoms at rest Gastrointestinal: Mild abdominal pain without distention, nausea and or vomiting Physical Exam Physical Exam: Lying in bed comfortably without any respiratory distress Constitutional: well developed, well nourished, + ill appearing and + morbidly obese Eyes: PERRL, conjunctivae normal, anicteric sclerae ENMT: external ear and nose normal, oropharynx normal Neck: trachea midline, no thyromegaly Respiratory: + cough; no respiratory distress and no labored breathing Auscultation: + diminished lung sounds, + crackles (Minimal crackles at the bases) and + wheezes Cardiovascular: Rate/Rhythm: regular rate, regular rhythm and + tachycardic Heart Sounds: normal S1 and normal S2; no murmur Extremities: + edema (Trace edema bilaterally) Gastrointestinal (Abdomen): Inspection/Auscultation: normal bowel sounds; abdomen not distended Percussion/Palpation: abdomen soft; abdomen nontender Musculoskeletal: No acute arthritis in any joint Neurologic: Alert, awake and oriented x3. Generally weak Psychiatric: A+Ox3, euthymic affect Lymphatic: no cervical or axillary lymphadenopathy Results & Data Results & Data ([facility]) Vital Signs (Past 12 Hours) Vital Signs Temp Pulse Resp BP Pulse Ox 03/13/21 15:17 36.5 C 85 20 103/57 L 91 03/13/21 14:37 77 20 89 L 03/13/21 11:40 36.4 C L 66 20 104/48 L 90 03/13/21 10:33 80 20 89 L 03/13/21 07:36 36.6 C 85 20 96/52 L 91 03/13/21 07:17 79 19 89 L 03/13/21 04:37 36.8 C 72 13 107/70 94 03/13/21 03:45 70 22 89 L Laboratory Results BMP 03/13/21 06:20 Creatinine 0.80 Medications Administered Current Inpatient Medications Acetaminophen (Acetaminophen 325 Mg Tab) 650 mg PO Q4H PRN PRN Reason: Pain or Fever Stop: 03/29/21 15:52 Last Admin: 03/08/21 17:47 Dose: 650 mg Documented by: Aripiprazole (Aripiprazole 15 Mg Tab) 15 mg PO HS PITO Stop: 03/30/21 20:59 Last Admin: 03/12/21 22:06 Dose: 15 mg Documented by: Budesonide (Budesonide 0.5 Mg/2 Ml Vial (Pulmicort)) 0.5 mg NEB BIDR PITO Stop: 04/03/21 09:44 Last Admin: 03/13/21 07:16 Dose: 0.5 mg Documented by: Dextrose (Dextrose 50% 50 Ml Syringe) 25 - 50 ml IV UD PRN; Protocol PRN Reason: Hypoglycemia Protocol Stop: 03/29/21 15:52 Enoxaparin Sodium (Enoxaparin Inj 60 Mg/0.6 Ml Syr) 60 mg SQ Q12 PITO Stop: 04/04/21 20:59 Last Admin: 03/13/21 08:31 Dose: 60 mg Documented by: Enoxaparin Sodium (Enoxaparin 80 Mg/0.8 Ml Syr) 60 mg SQ Q12 PITO Stop: 03/13/21 23:59 Furosemide (Furosemide 40 Mg/4 Ml Vial) 40 mg IV Q24H PITO Stop: 04/04/21 09:59 Last Admin: 03/13/21 08:31 Dose: 40 mg Documented by: Glucagon (Glucagon For Inj 1 Mg Vial) 1 mg SQ UD PRN; Protocol PRN Reason: Hypoglycemia Protocol Stop: 03/29/21 15:52 Glucose (Glucose 10 Tabs/Tube) 4 - 8 tabs PO UD PRN; Protocol PRN Reason: Hypoglycemia Protocol Stop: 03/29/21 15:52 Glucose (Glucose 40% Gel 15 Gm Tube) 15 - 30 gm PO UD PRN; Protocol PRN Reason: Hypoglycemia Protocol Stop: 03/29/21 15:52 Guaifenesin/Codeine Phosphate (Guaifenesin/Codeine 200mg/20mg 10ml Udc) 10 ml PO Q6H PRN PRN Reason: Cough Stop: 03/29/21 16:25 Last Admin: 03/03/21 12:41 Dose: 10 ml Documented by: Dexamethasone 20 mg/ Sodium (Chloride) 55 mls @ 200 mls/hr IV Q24H PITO Stop: 03/14/21 08:59 Last Infusion: 03/13/21 09:23 Dose: Infused Documented by: Insulin Aspart (Insulin Aspart 100 Units/Ml 3 Ml Pen) 0 units SC AC [facility] Stop: 04/10/21 11:29 Last Admin: 03/13/21 13:08 Dose: 30 units Documented by: Insulin Aspart (Insulin Aspart 100 Units/Ml 3 Ml Pen) 0 units SC HS [facility] Stop: 04/10/21 20:59 Last Admin: 03/12/21 22:06 Dose: Not Given Documented by: Insulin Glargine (Insulin Glargine Solostar 100 Units/Ml 3 Ml Pen) 10 units SC BID [facility] Stop: 04/13/21 08:59 Insulin Glargine (Insulin Glargine Solostar 100 Units/Ml 3 Ml Pen) 10 units SC TODAY@1630 [facility] Stop: 03/13/21 16:31 Insulin Human NPH (Insulin Human Nph) 20 units SC QAM [facility] Stop: 04/12/21 08:59 Last Admin: 03/13/21 08:30 Dose: 20 units Documented by: Lisinopril (Lisinopril 10 Mg Tab) 10 mg PO DAILY [facility] Stop: 04/10/21 08:59 Last Admin: 03/13/21 07:59 Dose: Not Given Documented by: Menthol (Cough Drop (Sugar Free) Levon 24 Levon/1 Box) 1 levon BUCCAL PRN PRN PRN Reason: Sore Throat Stop: 04/02/21 05:27 Last Admin: 03/03/21 06:31 Dose: 1 levon Documented by: Mirtazapine (Mirtazapine Soltab 15 Mg) 45 mg PO HS [facility] Stop: 03/30/21 20:59 Last Admin: 03/12/21 22:07 Dose: 45 mg Documented by: Miscellaneous (Carbohydrates For Hypoglycemia ) 15 - 30 gm PO UD PRN PRN Reason: Hypoglycemia Protocol Stop: 03/29/21 15:52 Last Admin: 03/11/21 20:13 Dose: 15 gm Documented by: Miscellaneous Information (Pharmacy Glycemic Mgmt Consult) 1 ea N/A UD PRN PRN Reason: Consult Stop: 03/30/21 08:16 Ondansetron HCl (Ondansetron Inj 2 Mg/Ml 2 Ml Vial) 4 mg IV Q6H PRN PRN Reason: Nausea Stop: 03/29/21 15:52 Polyethylene Glycol (Polyethylene (Miralax) 17 Gm Pack) 17 gm PO DAILY PRN PRN Reason: Constipation Stop: 03/29/21 15:52 Last Admin: 03/06/21 11:04 Dose: 17 gm Documented by: Potassium Chloride (Potassium Chloride Crtab 20 Meq Tabcr) 20 meq PO QAM PITO Stop: 04/01/21 08:59 Last Admin: 03/13/21 08:29 Dose: 20 meq Documented by: Sodium Chloride (Sodium Chloride 0.65% Na Soln 45 Ml ([place])) 1 sprays NA UD PRN PRN Reason: Dryness Stop: 04/07/21 19:55 Last Admin: 03/08/21 20:32 Dose: 1 sprays Documented by: Tramadol HCl (Tramadol Hcl 50 Mg Tablet) 25 - 50 mg PO Q4H PRN PRN Reason: Pain Stop: 04/02/21 20:37 Last Admin: 03/09/21 00:06 Dose: 50 mg Documented by:
[2021-03-13] MEDS ORDERED: INSULIN GLARGINE SOLOSTAR 100 UNITS/ML 3 ML PEN SC SCH (16:30)
[2021-03-13] MEDS: ARIPiprazole 15 MG TAB PO SCH (20:56)
[2021-03-13] MEDS: MIRTAZAPINE SOLTAB 15 MG PO SCH (20:57)
[2021-03-13] MEDS ORDERED: ENOXAPARIN 80 MG/0.8 ML SYR SQ SCH (21:00)
[2021-03-13] MEDS: ACETAMINOPHEN 325 MG TAB PO PRN (22:14)
[2021-03-14 06:46] LABS: Hematocrit (blood only) 50.6 % (42-52); Hemoglobin 17.9 g/dL (14.0-18.0); Mean Corpuscular Hemoglobin 30.3 pg (25-34); Mean Corpuscular Hgb Conc 35.4 g/dL (32-36); Mean Corpuscular Volume 85.6 fL (80-100); RDW Coefficient of Variation 13.6 % (11.5-14.5); Red Blood Count 5.91 M/uL (4.7-6.1); White Blood Count 10.13 K/uL (4.8-10.8)
[2021-03-14 07:19] LABS: Albumin Globulin Ratio 0.5 (0.9-2); Albumin Level 2.7 gm/dl (3.4-5.0); BUN Creatinine Ratio 34.6 (10-20); Bilirubin,Total 1.2 mg/dl (0.2-1); Calcium 8.8 mg/dl (8.5-10.1); Creatinine Clr Calc Pharmacy 119.4 ml/min; Est GFR (African American) 115.6 ml/min; Est GFR (Non-African American) 99.7 ml/min; Globulin 5.9 gm/dl (2.5-4.0); Magnesium 2.2 mg/dl (1.8-2.4); Phosphorus 3.6 mg/dl (2.5-4.9); Potassium 4.8 mmol/L (3.5-5.1); Total Protein 8.6 gm/dl (6.4-8.2)
[2021-03-14] MEDS: BUDESONIDE 0.5 MG/2 ML VIAL (PULMICORT) NEB SCH ×2 (07:30→17:15)
[2021-03-14 07:54] LABS: Mean Platelet Volume 11.1 fL (7.4-10.4); Platelet Count 97 K/uL (130-400); Platelet Estimate Decreased (Normal); RBC Morphology Unremarkable
[2021-03-14 08:09] LABS: ALC (manual) 0.26 K/uL (1.2-3.4); ANC (manual) 8.89 K/uL (1.4-6.5); Blast Cells % (manual) 0.9 %; Eosinophils # (manual) 0.09 K/uL (0-0.5); Eosinophils % (manual) 0.9 %; Lymphocytes # (manual) 0.26 K/uL (1.2-3.4); Lymphocytes % (manual) 2.6 %; Monocytes # (manual) 0.79 K/uL (0.11-0.59); Monocytes % (manual) 7.8 %; Neutrophils # (manual) 8.89 K/uL (1.4-6.5); Neutrophils % (manual) 87.8 %
[2021-03-14] MEDS: INSULIN GLARGINE SOLOSTAR 100 UNITS/ML 3 ML PEN SC SCH ×2 (08:24→20:04)
[2021-03-14] MEDS: ENOXAPARIN INJ 60 MG/0.6 ML SYR SQ SCH ×2 (08:24→20:19)
[2021-03-14] MEDS: FUROSEMIDE 40 MG/4 ML VIAL IV SCH (08:25)
[2021-03-14] MEDS: POTASSIUM CHLORIDE CRTAB 20 MEQ TABCR PO SCH (08:25)
[2021-03-14] MEDS: lisinopril 10 MG TAB PO SCH (08:25)
[2021-03-14] MEDS: INSULIN ASPART 100 UNITS/ML 3 ML PEN SC SCH ×4 (08:26→20:04)
--- NOTE | 2021-03-14 12:11 | Pharmacy Report ---
Pharmacy Glycemic Short Note 2 - Date of Service March 14, 2021 - Glycemic Short BSG Results (Last 24 hours): 03/13/21 03/13/21 03/14/21 16:16 19:39 06:17 Glucose 103 H POC Glucose 185 H 119 H 03/14/21 03/14/21 08:07 11:58 Glucose POC Glucose 104 H 190 H OUTPATIENT ANTIDIABETIC REGIMEN: * uncertain * A1c = 11.1% 02/28/21 ASSESSMENT: 03/14 * Fasting BSG 104 this AM w/ 20 units NPH and 10 units Lantus given yesterday * Today will be 1st day w/o dexamethasone IV - will titrate back Novolog doses greatly today and d/c NPH. Will utilize Lantus for basal needs - initial basal doses will be based upon weight and "low" stress given fasting BSG pattern this admission 03/13 * Fasting BSG 86 this AM - no basal insulin administered in last 24 hrs - substantially less than prior days. Suspect pt received excessive basal insulin doses which accumulated. Anticipate patient's basal needs to increase in the near future however. * Will begin a low dose of NPH this AM as pt still receiving high dose steroid therapy * Will begin less than "low" stress Lantus this evening with plans to utilize Lantus as basal insulin therapy when dexamethasone d/c'd * Novolog CF/CR remain appropriate, but will decrease correctional insulin dose given at HS given tendency to drop BSG overnight 03/12 * Patient's BSGs yesterday were [id number] mg/dL. * Patient received 181 units of insulin with 105 units of basal (25 units of Lantus and 80 units of NPH) plus 76 units of basal insulin. * Fasting today was 64 mg/dL. * Held all basal due to prolonged hypoglycemia plus patient not eating. Expect that basal excess will cover patient through today. Re-evaluate tomorrow. * Continue Novolog. PLAN FOR INPATIENT GLYCEMIC CONTROL: * Basal insulin- * dc NPH * Lantus 10 units SQ BID * Bolus insulin * NovoLog SQ ACHS * Correction factor: 15 mg/dl/unit AC (20 mg/dL/unit at night and only use if BSG > 180) * Nutritional / Prandial insulin per carb ratio of 1 unit per 5 grams CHO consumed AC (1 unit per 8 grams CHO consumed at night) PLAN FOR DISCHARGE: * to be determined once steroids lowered/discontinued
[2021-03-14] MEDS: traMADol HCL 50 MG TABLET PO PRN (12:41)
[2021-03-14] MEDS ORDERED: LORazepam 0.5 MG TAB PO STA (12:57)
[2021-03-14] MEDS ORDERED: LORazepam 0.5 MG TAB ONE (13:03)
[2021-03-14] MEDS: ARIPiprazole 15 MG TAB PO SCH (20:19)
[2021-03-14] MEDS: MIRTAZAPINE SOLTAB 15 MG PO SCH (20:19)
--- NOTE | 2021-03-14 23:43 | Hospitalist Progress Note ---
Date of Service March 14, 2021 Assessment & Plan (1) Acute respiratory failure due to COVID-19: (2) Pneumonia due to COVID-19 virus: Plan: Present on admission with worsening shortness of breath Vaccinated for COVID 19 Tested positive for COVID-19 CTA chest showed No evidence of pulmonary embolism. Diffuse reticular and groundglass opacities compatible with history of Covid pneumonia. Not a candidate for baricitinib at this time or any other immunosuppressive therapy. Continue high flow oxygen supplement Has been getting high-dose dexamethasone 20 mg IV daily Continue Lasix 40 mg IV daily Patient was advised to continue with self proning position Continue monitor closely (3) DMII (diabetes mellitus, type 2): Plan: HbA1C 11 Poorly controlled Continue present insulin Glycemic pharmacist consulted with overall glycemic picture well controlled. Has been having low blood sugar the pharmacist has been controlling that (4) HTN (hypertension): Plan: borderline hypotension. Decreased lisinopril to 10mg daily Blood pressure remains stable (5) Asthma: Plan: chronic, stable, no wheezing. May be complicating the Covid situation (6) Depression: Plan: Continue Abilify, mirtazapine per home regimen. (7) DVT prophylaxis: Plan: Lovenox SQ Full code Dispo-PCU, notably patient is incarcerated. Admission and Anticipated Discharge Date Admission Date: February 27, 2021 Subjective Patient was seen and examined for follow-up of shortness of breath due to COVID- 19 Lying in bed with mild respiratory distress with 2 officers at bedside Continue to require high flow oxygen supplement She said that his breathing slightly improved compared to yesterday Denies any chest pain, palpitation, dizziness, and fever. Review of Systems Review of Systems: All systems reviewed & are unremarkable except as noted in Subjective Physical Exam Physical Exam: General- No acute distress Head- atraumatic Eyes- PERRL, EOMI, ENT- oropharynx clear Neck- supple, no JVD Lungs-+decreased breath sounds Heart- regular rhythm; no murmur Abdomen- normal bowel sounds, soft, nontender Extremities- no calf tenderness Neuro- alert, oriented x 3; PERRL, EOMI; no facial palsy; no dysarthria Skin- warm & dry Results & Data Results & Data ([facility]) Vital Signs (Past 12 Hours) Vital Signs Temp Pulse Resp BP Pulse Ox 03/14/21 22:49 36.9 C 81 18 105/68 93 03/14/21 19:55 36.4 C L 89 18 120/72 92 03/14/21 18:27 104 H 18 94 03/14/21 15:38 36.4 C L 113 H 20 94/62 L 96 03/14/21 14:26 118 H 22 91
[2021-03-15 06:57] LABS: Hematocrit (blood only) 50.3 % (42-52); Hemoglobin 17.6 g/dL (14.0-18.0); Mean Corpuscular Volume 85.8 fL (80-100); Mean Platelet Volume 11.5 fL (7.4-10.4); Platelet Count 104 K/uL (130-400); RDW Coefficient of Variation 13.7 % (11.5-14.5); RDW Standard Deviation 42.5 fL (36.4-46.3); Red Blood Count 5.86 M/uL (4.7-6.1); White Blood Count 11.07 K/uL (4.8-10.8)
[2021-03-15] MEDS: INSULIN ASPART 100 UNITS/ML 3 ML PEN SC SCH ×4 (07:54→21:05)
[2021-03-15] MEDS: BUDESONIDE 0.5 MG/2 ML VIAL (PULMICORT) NEB SCH ×2 (08:01→19:25)
[2021-03-15] MEDS: ENOXAPARIN INJ 60 MG/0.6 ML SYR SQ SCH ×2 (08:06→20:51)
[2021-03-15] MEDS: lisinopril 10 MG TAB PO SCH (08:06)
[2021-03-15] MEDS: POTASSIUM CHLORIDE CRTAB 20 MEQ TABCR PO SCH (08:06)
[2021-03-15 08:09] LABS: Albumin Globulin Ratio 0.6 (0.9-2); Albumin Level 2.8 gm/dl (3.4-5.0); BUN Creatinine Ratio 35.1 (10-20); Bilirubin,Total 1.3 mg/dl (0.2-1); C Reactive Protein 3.13 mg/dl (0-0.29); Calcium 9.2 mg/dl (8.5-10.1); Creatinine Clr Calc Pharmacy 97.5 ml/min; Est GFR (African American) 92.3 ml/min; Est GFR (Non-African American) 79.6 ml/min; Potassium 4.7 mmol/L (3.5-5.1); Total Protein 7.8 gm/dl (6.4-8.2)
[2021-03-15] MEDS: INSULIN GLARGINE SOLOSTAR 100 UNITS/ML 3 ML PEN SC SCH ×2 (08:33→21:06)
[2021-03-15] MEDS: FUROSEMIDE 40 MG/4 ML VIAL IV SCH (10:34)
--- NOTE | 2021-03-15 15:10 | Consultation Report ---
NEPHROLOGY CONSULTATION NOTE DATE OF CONSULTATION: 03/15/2021 REASON FOR CONSULTATION: Hyponatremia. HISTORY OF PRESENT ILLNESS: The patient is a 50-year-old inmate from [facility] who has been in the hospital for the last 2 weeks because of shortness of breath and hypoxia related with COVID pneumonia. Even now he has significant need of oxygen, serum sodium has been dropping steadily for the last many days. The last time it was normal, was on 03/06/2021 which would be around 9 days ago, but since then it has dropped every day and this morning it was down to 125 after which Nephrology was consulted. The patient's blood pressure is somewhat on the low side. His intake of food is normal as per the nurse taking care. He does have a Clark catheter, and he is making about 2.5 liters of urine every day on Lasix 40 daily. Lasix was started on 03/05/2021 and it appears that is when it started to get lower. We do not have urine test or osmolality and electrolytes. The patient is awake, alert and able to give me his medical history. PAST MEDICAL AND SURGICAL HISTORY: Includes asthma, diabetes, hypertension. HOME MEDICATIONS: No known medications. ALLERGIES LIST: None. FAMILY HISTORY: Positive for diabetes. SOCIAL HISTORY: He is a current everyday smoker. No alcohol. His preferred language is [place]. He is currently incarcerated. No oxygen at home. REVIEW OF SYSTEMS: Twelve systems reviewed and is otherwise negative. Positive review of systems includes weakness, shortness of breath, hypoxia, requirement of high dose oxygen, but denies nausea, vomiting, chest pain, orthopnea, PND, lower extremity edema, belly pain, diarrhea or constipation. PHYSICAL EXAMINATION: GENERAL: A middle-aged male, does not appear to be in severe respiratory distress, but does seem to require significant amount of oxygen even now on high-flow. Mucous membrane is moist. NECK: Supple. No jugular venous distention. CHEST: Bilateral decreased breath sounds, occasional crackles at the bases. CVS: S1 and S2, regular. ABDOMEN: Soft, nontender. EXTREMITIES: Show no edema. NEUROLOGIC: Awake, alert, oriented x3. LABORATORY TEST: WBC count 11,000, hemoglobin 17.6, platelet count 104. Sodium 125, potassium 4.7, chloride 95, BUN 38, creatinine 1.08. Urinalysis done 10 days ago shows negative blood, negative protein. Chest x-ray done 7 days ago shows patchy peripheral airspace opacity representing viral pneumonia. ASSESSMENT AND PLAN: A 50-year-old male admitted for the last 2 weeks because of COVID pneumonia and associated hypoxia and shortness of breath. I have been consulted for hyponatremia, which has been gradually worsening for the last 9 days and is significantly worse today after which I have been consulted. Hyponatremia. Sodium was last normal about 9 days ago and since then it has been steadily dropping and is now down to 125. There are multiple possible etiologies, but the basic testing is urine osmolality and urine sodium to further categorize the etiology of the hyponatremia. This would further clarify the direction of our management. We will start urea 15 grams twice daily and put him on fluid restriction 1500 mL per day. Depending on the trend of the serum sodium tomorrow, I will decide about the Lasix, but for the time being, we can continue. I will continue to follow the patient. Given the difficulty in doing labs the next sodium can be done in the morning. Job ID: [id number] [facility]
[2021-03-15] MEDS: ARIPiprazole 15 MG TAB PO SCH (20:51)
[2021-03-15] MEDS: MIRTAZAPINE SOLTAB 15 MG PO SCH (20:51)
[2021-03-15] MEDS: UREA (UREA-NA) 15 GM PACK PO SCH (20:52)
--- NOTE | 2021-03-15 21:12 | Hospitalist Progress Note ---
Date of Service March 15, 2021 Assessment & Plan (1) Acute respiratory failure due to COVID-19: (2) Pneumonia due to COVID-19 virus: Plan: Present on admission with worsening shortness of breath Vaccinated for COVID 19 with [employer]. Tested positive for COVID-19 CTA chest showed No evidence of pulmonary embolism. Diffuse reticular and groundglass opacities compatible with history of Covid pneumonia. Not a candidate for baricitinib at this time or any other immunosuppressive therapy. Continue high flow oxygen supplement Has been getting high-dose dexamethasone 20 mg IV daily Continue Lasix 40 mg IV daily/incentive spirometer/flutter valve. My Patient was advised to continue with self proning position Continue monitor closely (3) DMII (diabetes mellitus, type 2): Plan: HbA1C 11 Poorly controlled Continue present insulin Glycemic pharmacist consulted with overall glycemic picture well controlled. Has been having low blood sugar the pharmacist has been controlling that (4) HTN (hypertension): Plan: borderline hypotension. Decreased lisinopril to 10mg daily Blood pressure remains stable (5) Asthma: Plan: chronic, stable, no wheezing. May be complicating the Covid situation (6) Depression: Plan: Continue Abilify, mirtazapine per home regimen. (7) DVT prophylaxis: Plan: Lovenox SQ Full code Dispo-PCU, notably patient is incarcerated. Admission and Anticipated Discharge Date Admission Date: February 27, 2021 Subjective Patient seen and examined at the bedside. Patient on high flow nasal cannula oxygen at 50 L at 79 percent. No new acute events overnight. Patient denies increased cough/increased shortness of breath at rest/ headache/dizziness/chest pain/palpitation/other review of symptoms. Patient reports occasional shortness of breath upon exertion. Patient reports eating and moving bowels okay. Physical Exam Physical Exam: GENERAL: Alert and oriented x3. NAD, on 50 L at 79% HFNC HEENT: No pallor, no icterus. Pupils equal, round and reactive to light. Oral mucosa moist. NECK: No JVD, no neck masses. HEART: S1 and S2 heard. Regular rate and rhythm. No murmur, no gallop. RESPIRATORY SYSTEM: Normal AP diameter. No accessory muscle use. No wheezing, no crackles. Decreased breath sounds ABDOMEN: Soft, bowel sounds present, nontender, no distention. CENTRAL NERVOUS SYSTEM: Alert and oriented x3. No facial droop. Speech is clear. Obeys simple commands. Moves extremities. EXTREMITIES: No edema, no erythema seen. Urinary catheter with yellow urine collection Results & Data Results & Data ([facility]) Vital Signs (Past 12 Hours) Vital Signs Temp Pulse Pulse Resp BP Pulse Ox 03/15/21 19:52 36.3 C L 102 H 18 91/55 L 90 03/15/21 19:25 102 H 22 90 03/15/21 16:00 94 H 03/15/21 15:23 36.4 C L 106 H 21 88/53 L 93 03/15/21 14:43 102 H 20 94 03/15/21 12:07 36.4 C L 96 H 19 105/73 94 03/15/21 10:59 104 H 20 94
[2021-03-16] MEDS: BUDESONIDE 0.5 MG/2 ML VIAL (PULMICORT) NEB SCH (07:30)
[2021-03-16 07:42] LABS: Creatinine Clr Calc Pharmacy 91.3 ml/min; Est GFR (African American) 85.5 ml/min; Est GFR (Non-African American) 73.8 ml/min
[2021-03-16] MEDS: INSULIN ASPART 100 UNITS/ML 3 ML PEN SC SCH ×4 (08:29→20:37)
[2021-03-16] MEDS: INSULIN GLARGINE SOLOSTAR 100 UNITS/ML 3 ML PEN SC SCH ×2 (08:30→20:37)
[2021-03-16] MEDS: lisinopril 10 MG TAB PO SCH (08:33)
[2021-03-16] MEDS: UREA (UREA-NA) 15 GM PACK PO SCH ×2 (08:33→20:24)
[2021-03-16] MEDS: ENOXAPARIN INJ 60 MG/0.6 ML SYR SQ SCH ×2 (08:33→20:23)
[2021-03-16] MEDS: POTASSIUM CHLORIDE CRTAB 20 MEQ TABCR PO SCH (08:35)
--- NOTE | 2021-03-16 09:32 | Nephrology Progress Note ---
Date of Service March 16, 2021 Assessment & Plan Admission and Anticipated Discharge Date Admission Date: February 27, 2021 Subjective S--No new issues. PHYSICAL EXAMINATION: as per my exam 03/15/2021 GENERAL: A middle-aged male, does not appear to be in severe respiratory distress, but does seem to require significant amount of oxygen even now on high-flow. Mucous membrane is moist. NECK: Supple. No jugular venous distention. CHEST: Bilateral decreased breath sounds, occasional crackles at the bases. CVS: S1 and S2, regular. ABDOMEN: Soft, nontender. EXTREMITIES: Show no edema. NEUROLOGIC: Awake, alert, oriented x3. LABORATORY TEST: na pending this AM. urine tests not done yet ASSESSMENT AND PLAN: A 50-year-old male admitted for the last 2 weeks because of COVID pneumonia and associated hypoxia and shortness of breath. I have been consulted for hyponatremia, which has been gradually worsening for the last 9 days and is significantly worse today after which I have been consulted. Hyponatremia. Sodium was last normal about 9 days ago and since then it has been steadily dropping and is now down to 125. There are multiple possible etiologies, but the basic testing is urine osmolality and urine sodium to further categorize the etiology of the hyponatremia. This would further clarify the direction of our management. We will start urea 15 grams twice daily and put him on fluid restriction 1500 mL per day. None of the lab results are back--Urine tests and Na this AM. Will order urine tests again. Results & Data ([facility]) Vital Signs (Past 12 Hours) Vital Signs Temp Pulse Resp BP Pulse Ox 03/16/21 08:03 36.6 C 93 H 24 93/61 L 97 03/16/21 07:30 93 H 20 97 03/16/21 04:24 36.5 C 95 H 20 95/56 L 91 03/16/21 02:45 93 H 20 92 03/16/21 00:09 36.5 C 74 18 94/60 L 90 03/15/21 23:45 90 20 88 L
[2021-03-16] MEDS: FUROSEMIDE 40 MG/4 ML VIAL IV SCH (10:04)
[2021-03-16 10:35] LABS: Appearance Urine Clear (Clear); Bacteria Urine Automated Negative (Negative); Bilirubin Urine Negative (Negative); Blood Urine 2+ (Negative); Color Urine Dark Yellow; Glucose Urine UA Negative (Negative); Ketones Urine Negative (Negative); Leukocyte Esterase Urine Trace (Negative); Nitrite Urine Negative (Negative); Protein Urine Negative (Negative); Specific Gravity Urine 1.022 (1.000-1.030); Urobilinogen Urine Negative (Negative); pH Urine 5.5 (4.5-7.5)
--- NOTE | 2021-03-16 15:18 | Pharmacy Report ---
Pharmacy Glycemic Short Note 2 - Date of Service March 16, 2021 - Glycemic Short BSG Results (Last 24 hours): 03/15/21 03/15/21 03/16/21 16:36 20:30 07:28 POC Glucose 87 196 H 122 H 03/16/21 11:33 POC Glucose 198 H OUTPATIENT ANTIDIABETIC REGIMEN: * uncertain * A1c = 11.1% 02/28/21 ASSESSMENT: 03/16: * Pt received total 47 units of insulin yesterday; 20 units basal + 27 units bolus. * Fasting BSG today = 122 mg/dl, continued basal dosing the same. * Dinner BSG trended down to 87 mg/dl yesterday. Loosened Novolog CR slightly this AM to prevent hypoglycemia at dinner time. 03/14 * Fasting BSG 104 this AM w/ 20 units NPH and 10 units Lantus given yesterday * Today will be 1st day w/o dexamethasone IV - will titrate back Novolog doses greatly today and d/c NPH. Will utilize Lantus for basal needs - initial basal doses will be based upon weight and "low" stress given fasting BSG pattern this admission 03/13 * Fasting BSG 86 this AM - no basal insulin administered in last 24 hrs - substantially less than prior days. Suspect pt received excessive basal insulin doses which accumulated. Anticipate patient's basal needs to increase in the near future however. * Will begin a low dose of NPH this AM as pt still receiving high dose steroid therapy * Will begin less than "low" stress Lantus this evening with plans to utilize Lantus as basal insulin therapy when dexamethasone d/c'd * Novolog CF/CR remain appropriate, but will decrease correctional insulin dose given at HS given tendency to drop BSG overnight 03/12 * Patient's BSGs yesterday were 49-700-13-65 mg/dL. * Patient received 181 units of insulin with 105 units of basal (25 units of Lantus and 80 units of NPH) plus 76 units of basal insulin. * Fasting today was 64 mg/dL. * Held all basal due to prolonged hypoglycemia plus patient not eating. Expect that basal excess will cover patient through today. Re-evaluate tomorrow. * Continue Novolog. PLAN FOR INPATIENT GLYCEMIC CONTROL: * Basal insulin- * Lantus 10 units SQ BID * Bolus insulin * NovoLog SQ ACHS * Correction factor: 15 mg/dl/unit * Nutritional / Prandial insulin per carb ratio of 1 unit per 6 grams CHO consumed PLAN FOR DISCHARGE: * HbA1c = 11.1% on 02/28/21 * Recommend continue outpatient Metformin 1000 mg PO BID with morning and evening meals and Glipizide 5 mg QAM with morning meal. * Since A1c is greater than 10%, recommend adding basal insulin with Lantus 15 units at HS.
--- NOTE | 2021-03-16 19:01 | Hospitalist Progress Note ---
Date of Service March 16, 2021 Assessment & Plan (1) Acute respiratory failure due to COVID-19: Plan: (1) Acute respiratory failure due to COVID-19: (2) Pneumonia due to COVID-19 virus: Present on admission with worsening shortness of breath Vaccinated for COVID 19 with [employer]. Tested positive for COVID-19 CTA chest showedNo evidence of pulmonary embolism. Diffuse reticular and groundglass opacities compatible with history of Covid pneumonia. Not a candidate for baricitinib at this time or any other immunosuppressive therapy. Continue high flow oxygen supplement, patient seems to be improving on oxygen requirement. Status post dexamethasone. Continue Lasix 40 mg IV daily/incentive spirometer/flutter valve. Patient was advised to continue with self proning position Continue monitor closely (3) DMII (diabetes mellitus, type 2): HbA1C 11 Poorly controlled Continue present insulin Glycemic pharmacist consulted with overall glycemic picture well controlled. Has been having low blood sugar the pharmacist has been controlling that (4) HTN (hypertension): borderline hypotension. Decreased lisinopril to 10mg daily Blood pressure remains stable (5) Asthma: chronic, stable, no wheezing. May be complicating the Covid situation (6) Depression: Continue Abilify, mirtazapine per home regimen. (7) DVT prophylaxis: Lovenox SQ Full code Dispo-PCU, notably patient is incarcerated. Admission and Anticipated Discharge Date Admission Date: February 27, 2021 Subjective Patient seen and examined at the bedside. Patient on high flow nasal cannula oxygen at 40 L at 69 percent. No new acute events overnight. Patient reports feeling better. Patient denies increased cough/increased shortness of breath at rest/ headache/dizziness/chest pain/palpitation/other review of symptoms. Patient reports eating and moving bowels okay. Physical Exam Physical Exam: GENERAL: Alert and oriented x3. NAD, on 40 L at 69% HFNC HEENT: No pallor, no icterus. Pupils equal, round and reactive to light. Oral mucosa moist. NECK: No JVD, no neck masses. HEART: S1 and S2 heard. Regular rate and rhythm. No murmur, no gallop. RESPIRATORY SYSTEM: Normal AP diameter. No accessory muscle use. No wheezing, no crackles. Decreased breath sounds ABDOMEN: Soft, bowel sounds present, nontender, no distention. CENTRAL NERVOUS SYSTEM: Alert and oriented x3. No facial droop. Speech is clear. Obeys simple commands. Moves extremities. EXTREMITIES: No edema, no erythema seen. Urinary catheter with yellow urine collection Results & Data Results & Data ([facility]) Vital Signs (Past 12 Hours) Vital Signs Temp Pulse Pulse Resp BP Pulse Ox 03/16/21 16:00 109 H 03/16/21 15:38 36.8 C 95 H 20 107/69 95 03/16/21 14:22 109 H 20 93 03/16/21 12:32 36.8 C 111 H 22 103/71 03/16/21 12:09 92 03/16/21 11:15 103 H 20 93 03/16/21 08:03 36.6 C 93 H 24 93/61 L 97 03/16/21 08:00 102 H 03/16/21 07:30 93 H 20 97
[2021-03-16] MEDS: ARIPiprazole 15 MG TAB PO SCH (20:23)
[2021-03-16] MEDS: MIRTAZAPINE SOLTAB 15 MG PO SCH (20:24)
[2021-03-17] MEDS: INSULIN GLARGINE SOLOSTAR 100 UNITS/ML 3 ML PEN SC SCH ×2 (09:00→21:36)
[2021-03-17] MEDS: INSULIN ASPART 100 UNITS/ML 3 ML PEN SC SCH ×4 (09:00→21:33)
[2021-03-17] MEDS: ENOXAPARIN INJ 60 MG/0.6 ML SYR SQ SCH ×2 (09:10→21:07)
[2021-03-17] MEDS: UREA (UREA-NA) 15 GM PACK PO SCH ×2 (09:11→21:07)
[2021-03-17 09:13] LABS: BUN Creatinine Ratio 34.6 (10-20); Creatinine Clr Calc Pharmacy 99.6 ml/min; Est GFR (African American) 95.5 ml/min; Est GFR (Non-African American) 82.4 ml/min; Potassium 4.8 mmol/L (3.5-5.1)
[2021-03-17] MEDS: lisinopril 10 MG TAB PO SCH (09:29)
[2021-03-17] MEDS: POTASSIUM CHLORIDE CRTAB 20 MEQ TABCR PO SCH (09:41)
--- NOTE | 2021-03-17 10:11 | Nephrology Progress Note ---
Date of Service March 17, 2021 Assessment & Plan Admission and Anticipated Discharge Date Admission Date: February 27, 2021 Subjective Assessment & Plan Admission and Anticipated Discharge Date Admission Date: February 27, 2021 Subjective S--No new issues. PHYSICAL EXAMINATION: as per my exam 03/15/2021 GENERAL: A middle-aged male, does not appear to be in severe respiratory distress, but does seem to require significant amount of oxygen even now on high-flow. Mucous membrane is moist. NECK: Supple. No jugular venous distention. CHEST: Bilateral decreased breath sounds, occasional crackles at the bases. CVS: S1 and S2, regular. ABDOMEN: Soft, nontender. EXTREMITIES: Show no edema. NEUROLOGIC: Awake, alert, oriented x3. LABORATORY TEST: na 135 now. ASSESSMENT AND PLAN: A 50-year-old male admitted for the last 2 weeks because of COVID pneumonia and associated hypoxia and shortness of breath. I have been consulted for hyponatremia, which has been gradually worsening for the last 9 days and is significantly worse today after which I have been consulted. Hyponatremia. Sodium was last normal about 9 days ago and since then it has been steadily dropping and then down to 125. But since FFR and urea rising and now up to 133. Likely SIADH. Given low BP--D/c Iv lasix and also Lisinopril. Continue FFR of 1500 and urea. Results & Data ([facility]) Vital Signs (Past 12 Hours) Vital Signs Temp Pulse Pulse Resp BP Pulse Ox 03/17/21 09:13 100/68 03/17/21 08:09 36.5 C 111 H 18 83/64 L 91 03/17/21 07:09 88 25 H 93 03/17/21 05:45 36.8 C 96 H 24 113/81 95 03/17/21 02:46 86 22 92 03/16/21 23:57 101 H 03/16/21 23:15 36.8 C 104 H 25 H 107/73 92
--- NOTE | 2021-03-17 12:56 | Pharmacy Report ---
Pharmacy Glycemic Short Note 2 - Date of Service March 17, 2021 - Glycemic Short BSG Results (Last 24 hours): 03/16/21 03/16/21 03/17/21 16:20 20:07 08:06 Glucose POC Glucose 100 H 203 H 128 H 03/17/21 03/17/21 08:13 10:55 Glucose 132 H POC Glucose 144 H OUTPATIENT ANTIDIABETIC REGIMEN: * uncertain * A1c = 11.1% 02/28/21 ASSESSMENT: 03/17: * BSGs yesterday were 359-272-326-203 mg/dL. * Patient received 45 units of insulin (20 units of basal and 25 units of bolus). * Fasting today is 128 mg/dL - stable from yesterday. * Patient tends to overcorrect when BSG elevated - loosen CF. * Tighten CR to prevent climbing when in range. 03/16: * Pt received total 47 units of insulin yesterday; 20 units basal + 27 units bolus. * Fasting BSG today = 122 mg/dl, continued basal dosing the same. * Dinner BSG trended down to 87 mg/dl yesterday. Loosened Novolog CR slightly this AM to prevent hypoglycemia at dinner time. 03/14 * Fasting BSG 104 this AM w/ 20 units NPH and 10 units Lantus given yesterday * Today will be 1st day w/o dexamethasone IV - will titrate back Novolog doses greatly today and d/c NPH. Will utilize Lantus for basal needs - initial basal doses will be based upon weight and "low" stress given fasting BSG pattern this admission 03/13 * Fasting BSG 86 this AM - no basal insulin administered in last 24 hrs - substantially less than prior days. Suspect pt received excessive basal insulin doses which accumulated. Anticipate patient's basal needs to increase in the near future however. * Will begin a low dose of NPH this AM as pt still receiving high dose steroid therapy * Will begin less than "low" stress Lantus this evening with plans to utilize Lantus as basal insulin therapy when dexamethasone d/c'd * Novolog CF/CR remain appropriate, but will decrease correctional insulin dose given at HS given tendency to drop BSG overnight 03/12 * Patient's BSGs yesterday were 18-627-08-65 mg/dL. * Patient received 181 units of insulin with 105 units of basal (25 units of Lantus and 80 units of NPH) plus 76 units of basal insulin. * Fasting today was 64 mg/dL. * Held all basal due to prolonged hypoglycemia plus patient not eating. Expect that basal excess will cover patient through today. Re-evaluate tomorrow. * Continue Novolog. PLAN FOR INPATIENT GLYCEMIC CONTROL: * Basal insulin- * Lantus 10 units SQ BID * Bolus insulin * NovoLog SQ ACHS * Correction factor: 20 mg/dl/unit * Nutritional / Prandial insulin per carb ratio of 1 unit per 5 grams CHO consumed PLAN FOR DISCHARGE: * HbA1c = 11.1% on 02/28/21 * Recommend continue outpatient Metformin 1000 mg PO BID with morning and evening meals and Glipizide 5 mg QAM with morning meal. * Since A1c is greater than 10%, recommend adding basal insulin with Lantus 15 units at HS.
--- NOTE | 2021-03-17 18:00 | Hospitalist Progress Note ---
Date of Service March 17, 2021 Assessment & Plan (1) Acute respiratory failure due to COVID-19: Plan: (1) Acute respiratory failure due to COVID-19: (2) Pneumonia due to COVID-19 virus: Present on admission with worsening shortness of breath Vaccinated for COVID 19 with [employer]. Tested positive for COVID-19 CTA chest showedNo evidence of pulmonary embolism. Diffuse reticular and groundglass opacities compatible with history of Covid pneumonia. Not a candidate for baricitinib at this time or any other immunosuppressive therapy. Continue high flow oxygen supplement, patient seems to be improving on oxygen requirement. Status post dexamethasone. Continue Lasix 40 mg IV daily/incentive spirometer/flutter valve. Patient was advised to continue with self proning position Continue monitor closely #. Hyponatremia, likely SIADH Improving, nephrology on boardFR, urea (3) DMII (diabetes mellitus, type 2): HbA1C 11 Poorly controlled Continue present insulin Glycemic pharmacist consulted with overall glycemic picture well controlled. Has been having low blood sugar the pharmacist has been controlling that (4) HTN (hypertension): borderline hypotension. Decreased lisinopril to 10mg daily Blood pressure remains stable (5) Asthma: chronic, stable, no wheezing. May be complicating the Covid situation (6) Depression: Continue Abilify, mirtazapine per home regimen. (7) DVT prophylaxis: Lovenox SQ Full code Dispo-PCU, notably patient is incarcerated. Admission and Anticipated Discharge Date Admission Date: February 27, 2021 Subjective Patient was lying in bed, NAD, on 35 L at 69%, no new acute events overnight. Patient reports doing flutter valve but no incentive spirometer. Patient encouraged to do incentive spirometer as well. Patient reports some coughdry. Patient is eating and moving bowels okay. Patient denies fever/headache/chills/other review of symptoms. Physical Exam Physical Exam: GENERAL: Alert and oriented x3. NAD, on 35 L at 69% HFNC HEENT: No pallor, no icterus. Pupils equal, round and reactive to light. Oral mucosa moist. NECK: No JVD, no neck masses. HEART: S1 and S2 heard. Regular rate and rhythm. No murmur, no gallop. RESPIRATORY SYSTEM: Normal AP diameter. No accessory muscle use. No wheezing, no crackles. Decreased breath sounds ABDOMEN: Soft, bowel sounds present, nontender, no distention. CENTRAL NERVOUS SYSTEM: Alert and oriented x3. No facial droop. Speech is clear. Obeys simple commands. Moves extremities. EXTREMITIES: No edema, no erythema seen. Urinary catheter with yellow urine collection Results & Data Results & Data ([facility]) Vital Signs (Past 12 Hours) Vital Signs Temp Pulse Pulse Resp BP Pulse Ox 03/17/21 17:20 97 H 21 95 03/17/21 15:22 36.9 C 114 H 18 113/72 95 03/17/21 10:58 36.4 C L 96 H 18 116/73 96 03/17/21 10:41 80 22 93 03/17/21 09:13 100/68 03/17/21 08:09 36.5 C 111 H 18 83/64 L 91 03/17/21 08:00 87 03/17/21 07:09 88 25 H 93
[2021-03-17] MEDS: BENZONATATE 100 MG CAPSULE PO SCH (21:08)
[2021-03-17] MEDS: ARIPiprazole 15 MG TAB PO SCH (21:08)
[2021-03-17] MEDS: MIRTAZAPINE SOLTAB 15 MG PO SCH (21:12)
[2021-03-18] MEDS: UREA (UREA-NA) 15 GM PACK PO SCH ×2 (08:30→19:57)
[2021-03-18] MEDS: ENOXAPARIN INJ 60 MG/0.6 ML SYR SQ SCH ×2 (08:31→19:57)
[2021-03-18] MEDS: BENZONATATE 100 MG CAPSULE PO SCH ×3 (08:31→19:58)
[2021-03-18 08:52] LABS: Hematocrit (blood only) 50.5 % (42-52); Hemoglobin 16.9 g/dL (14.0-18.0); Mean Corpuscular Hemoglobin 29.5 pg (25-34); Mean Corpuscular Hgb Conc 33.5 g/dL (32-36); Mean Corpuscular Volume 88.1 fL (80-100); RDW Coefficient of Variation 14.1 % (11.5-14.5); RDW Standard Deviation 45.6 fL (36.4-46.3); Red Blood Count 5.73 M/uL (4.7-6.1); White Blood Count 6.08 K/uL (4.8-10.8)
[2021-03-18 09:26] LABS: BUN Creatinine Ratio 25.5 (10-20); Calcium 9.1 mg/dl (8.5-10.1); Est GFR (African American) 86.4 ml/min; Est GFR (Non-African American) 74.6 ml/min; Potassium 5.2 mmol/L (3.5-5.1)
[2021-03-18 09:29] LABS: Mean Platelet Volume 10.4 fL (7.4-10.4); Platelet Count 69 K/uL (130-400)
[2021-03-18] MEDS: POTASSIUM CHLORIDE CRTAB 20 MEQ TABCR PO SCH (09:42)
[2021-03-18] MEDS: INSULIN GLARGINE SOLOSTAR 100 UNITS/ML 3 ML PEN SC SCH ×2 (09:50→20:31)
[2021-03-18] MEDS: INSULIN ASPART 100 UNITS/ML 3 ML PEN SC SCH ×4 (09:50→20:30)
--- NOTE | 2021-03-18 13:29 | XRay Report ---
XR chest 1V portable CLINICAL HISTORY: f/u, increase RR COMPARISON STUDY: Chest CT February 27, 2021. Chest radiograph March 07, 2021. FINDINGS: Moderate multifocal consolidation within the lungs is noted. This has slightly progressed s lori prior exam of March 07, 2021. Lung volumes are mildly diminished. There is no pneumothorax or pleural effusion. There is mild elevation of the right hemidiaphragm. Cardiomediastinal silhouette i s stable. No radiographic evidence for pneumomediastinum. IMPRESSION: Moderate multifocal consolidation suggestive of viral pneumonia. Mild progression since p rior chest radiograph. ACT 112: Negative or not required by law. Electronically signed by: Alpesh Khan M.D. 03/18/2021 1:27 PM
--- NOTE | 2021-03-18 19:27 | Hospitalist Progress Note ---
Date of Service March 18, 2021 Assessment & Plan (1) Acute respiratory failure due to COVID-19: Plan: (1) Acute respiratory failure due to COVID-19: (2) Pneumonia due to COVID-19 virus: Present on admission with worsening shortness of breath Vaccinated for COVID 19 with [employer]. Tested positive for COVID-19 CTA chest showedNo evidence of pulmonary embolism. Diffuse reticular and groundglass opacities compatible with history of Covid pneumonia. Not a candidate for baricitinib at this time or any other immunosuppressive therapy. Continue high flow oxygen supplement, patient is improved markedly with oxygen requirement. Titrate down as tolerated. Status post dexamethasone. Continue incentive spirometer/flutter valve. Patient was advised to continue with self proning position Continue monitor closely #. Hyponatremia, likely SIADH Improving, nephrology on boardFR, urea (3) DMII (diabetes mellitus, type 2): HbA1C 11 Poorly controlled Continue present insulin Glycemic pharmacist consulted with overall glycemic picture well controlled. Has been having low blood sugar the pharmacist has been controlling that (4) HTN (hypertension): borderline hypotension. Decreased lisinopril to 10mg daily Blood pressure remains stable (5) Asthma: chronic, stable, no wheezing. May be complicating the Covid situation (6) Depression: Continue Abilify, mirtazapine per home regimen. (7) DVT prophylaxis: Lovenox SQ Full code Dispo-PCU, notably patient is incarcerated. Admission and Anticipated Discharge Date Admission Date: February 27, 2021 Subjective Patient was lying in bed, NAD, on 4L, no new acute events overnight. Patient reports feeling better. Patient encouraged to do incentive spirometer.. Patient reports some coughdry, improving Patient is eating and moving bowels okay. Patient denies fever/headache/chills/other review of symptoms. Physical Exam Physical Exam: GENERAL: Alert and oriented x3. NAD, on 4L HEENT: No pallor, no icterus. Pupils equal, round and reactive to light. Oral mucosa moist. NECK: No JVD, no neck masses. HEART: S1 and S2 heard. Regular rate and rhythm. No murmur, no gallop. RESPIRATORY SYSTEM: Normal AP diameter. No accessory muscle use. No wheezing, no crackles. Decreased breath sounds ABDOMEN: Soft, bowel sounds present, nontender, no distention. CENTRAL NERVOUS SYSTEM: Alert and oriented x3. No facial droop. Speech is clear. Obeys simple commands. Moves extremities. EXTREMITIES: No edema, no erythema seen. Results & Data Results & Data ([facility]) Vital Signs (Past 12 Hours) Vital Signs Temp Pulse Pulse Resp BP Pulse Ox 03/18/21 18:45 36.7 C 118 H 30 H 126/84 94 03/18/21 16:10 36.9 C 116 H 22 123/67 95 03/18/21 13:00 30 H 03/18/21 11:45 37.0 C 102 H 40 H 119/72 95 03/18/21 08:00 97 H 03/18/21 07:36 102 H 20 93
[2021-03-18] MEDS: ARIPiprazole 15 MG TAB PO SCH (19:58)
[2021-03-18] MEDS: MIRTAZAPINE SOLTAB 15 MG PO SCH (19:58)
[2021-03-19 08:21] LABS: BUN Creatinine Ratio 25.1 (10-20); Calcium 8.7 mg/dl (8.5-10.1); Creatinine Clr Calc Pharmacy 111.6 ml/min; Est GFR (African American) 109.1 ml/min; Est GFR (Non-African American) 94.2 ml/min; Potassium 4.9 mmol/L (3.5-5.1)
[2021-03-19] MEDS: UREA (UREA-NA) 15 GM PACK PO SCH (08:54)
[2021-03-19] MEDS: BENZONATATE 100 MG CAPSULE PO SCH ×2 (08:55→12:57)
[2021-03-19] MEDS: ENOXAPARIN INJ 60 MG/0.6 ML SYR SQ SCH (08:55)
[2021-03-19] MEDS: INSULIN GLARGINE SOLOSTAR 100 UNITS/ML 3 ML PEN SC SCH (09:00)
[2021-03-19] MEDS: INSULIN ASPART 100 UNITS/ML 3 ML PEN SC SCH ×3 (09:00→18:26)
--- NOTE | 2021-03-19 15:02 | Discharge Summary ---
Date of Service March 19, 2021 Admission HPI Per Admitting Provider 50 yo inmate who is vaccinated presented with SOB and hypoxia. He is known to be positive for covid-19 since 02/21 and symptomatic for possibly one week prior to that. He doesn't really know how long he has been sick. Denies fevers, chills, chest pain. Reports diarrhea twice daily and SOB now requiring oxygen. Some coughing present that is keeping him up at night. Denies any appetite to eat at this time. Otherwise has no symptoms. Known diabetic. He comes without paperwork and is unable to tell me if he is on medications. Admission Exam Per Admitting Provider CONSTITUTIONAL: WNWD, vitals as above, generally well-appearing, NAD EYES: pupils are round and equal bilaterally, normal conjunctivae, no scleral icterus ENT: external ear and nose normal, oropharynx clear, MMM NECK: trachea midline RESPIRATORY: clear to auscultation bilaterally, no crackles, rales or wheezes, diminished breath sounds at the bases, normal respiratory effort CARDIOVASCULAR: regular rate and rhythm, S1 and 2 heard without murmurs, gallops or rubs, no JVD, no peripheral edema CHEST: inspection of chest was normal GASTROINTESTINAL: soft, nontender, ND, no guarding MUSCULOSKELETAL: strength 5/5 throughout, head is normocephalic and atraumatic SKIN: warm and dry,extensive tattoos NEUROLOGIC: patellar DTRs 2+ bilat. PERRL, EOMI, no facial palsy, no dysarthria. Touch, pain and proprioception normal. CN 2-12 grossly intact, no sensory deficit, normal cognition, normal speech, no tremor PSYCHIATRIC: alert cooperative and oriented to person, place and time. Principal Diagnosis Covid pneumonia Acute on chronic hyponatremia Discharge Exam GENERAL: Alert and oriented x3. NAD, on 4L HEENT: No pallor, no icterus. Pupils equal, round and reactive to light. Oral mucosa moist. NECK: No JVD, no neck masses. HEART: S1 and S2 heard. Regular rate and rhythm. No murmur, no gallop. RESPIRATORY SYSTEM: Normal AP diameter. No accessory muscle use. No wheezing, no crackles. Decreased breath sounds ABDOMEN: Soft, bowel sounds present, nontender, no distention. CENTRAL NERVOUS SYSTEM: Alert and oriented x3. No facial droop. Speech is clear. Obeys simple commands. Moves extremities. EXTREMITIES: No edema, no erythema seen. Discharge Data Allergies Allergy/AdvReac Type Severity Reaction Status Date / Time No Known Allergies Allergy Verified 02/27/21 16:40 Consultations 02/27/21 14:03 ED Decision to Admit Stat 03/04/21 12:30 Consult Pulmonology Routine 03/15/21 12:07 Consult Nephrology Routine Ordered Studies 02/27/21 11:27 CT angio chest PE protocol Stat 03/03/21 22:06 CT abd pelvis IV con only Urgent Diabetes Follow up Diabetes Follow-up Needed for HgbA1c >9% Hospital Course (1) Acute respiratory failure due to COVID-19: 50 yo inmate who is vaccinated presented with SOB and hypoxia 02/27. He is known to be positive for covid-19 since 02/21 and symptomatic for possibly one week prior to that. He was managed for the following while in hospital: (1) Acute respiratory failure due to COVID-19: (2) Pneumonia due to COVID-19 virus: Present on admission with worsening shortness of breath Vaccinated for COVID 19 with [employer]. Tested positive for COVID-19 CTA chest showedNo evidence of pulmonary embolism. Diffuse reticular and groundglass opacities compatible with history of Covid pneumonia. Not a candidate for baricitinib at this time or any other immunosuppressive therapy. Continue high flow oxygen supplement, patient is improved markedly with oxygen requirement. Titrate down as tolerated. Status post dexamethasone. Continue incentive spirometer/flutter valve up to 1 week upon discharge Patient was advised to continue with self proning position Can be off of isolation. #. Hyponatremia, likely SIADH Improving, nephrology on boardFR, urea Maintain fluid restriction to 1500 mL a day, continue with urea, have BMP done in 2 weeks, follow with nephrology. (3) DMII (diabetes mellitus, type 2): HbA1C 11 Poorly controlled Continue present insulin Glycemic pharmacist consulted with overall glycemic picture well controlled. (4) HTN (hypertension): borderline hypotension. Decreased lisinopril to 10mg daily Blood pressure remains stable (5) Asthma: chronic, stable, no wheezing. May be complicating the Covid situation (6) Depression: Continue Abilify, mirtazapine per home regimen. (7) DVT prophylaxis: Lovenox SQ while inpatient Full code Patient being discharged back to correction[facility] facilities, correctional facility physician given signout, following instructions were communicated at the point of discharge: Follow-up with your primary care physician within a week time For your hyponatremia, Continue clear restriction to 1500 mL a day. Continue urea as prescribed Get your blood work BMP done in 2 weeks time. If needed may follow-up with nephrology. You are tested positive for Covid on 02/21 and then on 02/27/2021, you can be off of isolation. Take medications as prescribed. Continue with incentive spirometer and flutter valve for a week time upon dis charge. Total Time Total Time Spent Total Time Spent (In Minutes): 40 Discharge Plan Discharge Items Patient Disposition: [facility] Reason For Visit: COVID PNEUMONIA, HYPOXIA Discharge Diagnosis: Covid pneumonia Acute on chronic hyponatremia Activity: Resume your previous activity Non-emergency contact: Primary Care Provider Call non-emergency contact if: you have any medication questions, your symptoms worsen and your temperature is above 101 Follow-up/Referrals: Heidy NANCE [Primary Care Provider] - Diet: Carb Consistent or DM2 Addtl Attending Provider Instructions: Follow-up with your primary care physician within a week time For your hyponatremia, Continue clear restriction to 1500 mL a day. Continue urea as prescribed Get your blood work BMP done in 2 weeks time. If needed may follow-up with nephrology. You are tested positive for Covid on 02/21 and then on 02/27/2021, you can be off of isolation. Take medications as prescribed. Continue with incentive spirometer and flutter valve for a week time upon discharge. Pending Studies at Discharge: No Stand-Alone Forms: [facility] Skilled Items Patient informed of condition?: Yes Discharge Level of Care: Other Communicable Disease: No Discharge Prognosis: Stable Lines: None Urinary Catheter: No Medications and DC Order Prescriptions: New Ure-Na 15 gram Powder In Packet 15 g PO BID 14 Days Qty: 28 RF: 0 Mucinex 1,200 mg tablet extended release 12hr 1,200 mg PO BID 3 Days Qty: 6 RF: 0 Continued metformin 1,000 mg Tablet 1,000 mg PO BID RF: 0 mirtazapine [Remeron] 45 mg Tablet 45 mg PO HS RF: 0 furosemide [Lasix] 20 mg Tablet 20 mg PO DAILY RF: 0 lisinopril 40 mg Tablet 40 mg PO DAILY RF: 0 glipizide 5 mg Tablet 5 mg PO DAILY RF: 0 aripiprazole [Abilify] 15 mg Tablet 15 mg PO HS RF: 0 levalbuterol tartrate [Xopenex HFA] 45 mcg/actuation Hfa Aerosol Inhaler 2 inh INHALATION Q6H PRN (Reason: sob/wheezing) RF: 0 Discharge Orders: Discharge Order (Routine); Ordered 03/19/21 Ordered By: Chan No Admission Data Admit Date/Time: 02/27/21 14:26 Attending Provider: Chan No Admit Provider: Kris Cooper Primary Care Provider: Heidy NANCE Other Providers: Mallika Brown ; Elda Holcomb ; Deisi Malin Roshan
== END 2021-03-19 20:38 | DRG 177 ==
LOC: ED 10:17 → SUATTDRO 14:26 → 2E 14:26 → 2S 03-14 14:31